=== PATIENT | male | born 1950 | race Two or more races ===

== ENCOUNTER 2018-09-03 08:39 | Emergency (ER) | payer BC, OTHER ==
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
[2018-09-03 09:00] VITALS: BMI 18.8
[2018-09-03] MEDS ORDERED: SODIUM CHLORIDE 0.9% 500 ML INFUS.BAG IV ONE (09:22)
[2018-09-03] MEDS ORDERED: ACETAMINOPHEN 1000 MG/100 ML VIAL (NON FORMULARY) IVPB ONE (09:22)
[2018-09-03] MEDS ORDERED: ACETAMINOPHEN INJECTION 100 ML IVPB ONE (10:06)
[2018-09-03 10:12] LABS: BASO % 0.5 % (0-2.0); EOS % 0.5 % (0-4.5); HEMOGLOBIN 11.4 GM/dL (11.7-16.9); MCHC 33.6 g/dl (32.0-35.9); MEAN CELL VOLUME 95.1 fl (80-96); MEAN PLT VOLUME 8.7 fl (7.5-11.1); MONO % 7.8 % (3.8-10.2); NEUT % 77.2 % (42.8-82.8); PLATELET COUNT 207 K/MM3 (134-434); RBC 3.58 M/mm3 (4.00-5.60); RDW 14.1 % (11.9-15.9); WHITE BLOOD COUNT 6.5 K/mm3 (4.0-10.0)
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
[2018-09-03 10:50] LABS: URINE APPEARANCE CLEAR; URINE BILIRUBIN NEGATIVE (<2.0 mg/dL); URINE COLOR LTYELLOW; URINE GLUCOSE (UA) 3+ (NEGATIVE); URINE KETONE NEGATIVE (NEGATIVE); URINE LEUK ESTERASE NEGATIVE (NEGATIVE); URINE NITRITE NEGATIVE (NEGATIVE); URINE PROTEIN NEGATIVE (NEGATIVE); URINE UROBILINOGEN 4.0 E.U/dl mg/dL (0.2-1.0)
[2018-09-03 10:56] LABS: ALBUMIN 2.8 g/dl (3.4-5.0); ALK PHOS 96 U/L (45-117); ANION GAP 4 MMOL/L (8-16); BILIRUBIN,TOTAL 0.4 mg/dL (0.2-1); BLOOD UREA NITROGEN 10 mg/dL (7-18); CALCIUM 8.6 mg/dL (8.5-10.1); CHLORIDE 103 mmol/L (98-107); CO2 27 mmol/L (21-32); CREATININE 0.5 mg/dL (0.55-1.3); GLUCOSE,RANDOM 243 mg/dL (74-106); POTASSIUM 4.7 mmol/L (3.5-5.1); SGOT/AST 41 U/L (15-37); SGPT/ALT 31 U/L (13-61); SODIUM 134 mmol/L (136-145); TOT PROT 7.4 g/dl (6.4-8.2)
[2018-09-03 11:27] LABS: COCAINE, UR NEGATIVE ng/ml (CUTOFF=300); METHADONE, UR NEGATIVE ng/ml (CUTOFF=300); OPIATES, URI NEGATIVE ng/ml (CUTOFF=300); PHENCYCLIDINE,URINE NEGATIVE ng/ml (CUTOFF=25); URINE AMPHETAMINES NEGATIVE ng/ml (CUTOFF=500); URINE BARBITURATES NEGATIVE ng/ml (CUTOFF=200); URINE BENZODIAZEPINES NEGATIVE ng/ml (CUTOFF=200)
[2018-09-03 15:35] VITALS: BP 115/71; PULSE 89; TEMP 97.9
--- NOTE | 2018-09-03 16:24 | EKG ---
Test Reason : Blood Pressure : / mmHG Vent. Rate : 073 BPM Atrial Rate : 073 BPM P-R Int : 118 ms QRS Dur : 100 ms QT Int : 360 ms P-R-T Axes : 062 -55 038 degrees QTc Int : 396 ms NORMAL SINUS RHYTHM LEFT ANTERIOR FASCICULAR BLOCK ABNORMAL ECG WHEN COMPARED WITH ECG OF 18-OCT-2014 17:18, NO SIGNIFICANT CHANGE WAS FOUND Confirmed by Glynn Hidalgo ([id number]) on 09/03/2018 4:24:25 PM Referred By: Confirmed By:Glynn Hidalgo
== END 2018-09-03 15:35 | disposition home or self-care (01) ==
LOC: JER 08:39
PROC: 3E033NZ Introduction of Analgesics, Hypnotics, Sedatives into Peripheral Vein, Percutaneous Approach (ICD-10-PCS; principal; 2018-09-03)
DX: M79.18 Myalgia, other site (principal); I10 Essential (primary) hypertension; E11.9 Type 2 diabetes mellitus without complications; Z79.84 Long term (current) use of oral hypoglycemic drugs; Z86.73 Personal history of transient ischemic attack (TIA), and cerebral infarction without residual deficits; Z87.01 Personal history of pneumonia (recurrent); Y04.8XXA Assault by other bodily force, initial encounter; Y93.89 Activity, other specified; Y92.238 Other place in hospital as the place of occurrence of the external cause; Y99.8 Other external cause status; Y07.9 Unspecified perpetrator of maltreatment and neglect; F10.10 Alcohol abuse, uncomplicated
CPT/HCPCS: 36415; 70450-TC; 71046-TC-FY; 71111-TC-FY; 71250-TC; 73030-TC-RT-FY; 73060-TC-RT-FY; 73070-TC-RT-FY; 73090-TC-RT-FY; 73564-TC-RT-FY; 80053; 80307; 81003; 81015; 85025; 93005; 93010; 96374; 99284-25; J0131

== ENCOUNTER 2019-07-09 17:48 | Inpatient (IN) | payer OTHER ==
--- NOTE | 2019-07-09 18:16 | PDOC ---
Rapid Medical Evaluation Chief Complaint: Cold Symptoms Time Seen by Provider: 07/09/19 17:56 Medical Evaluation: Allergies Allergy/AdvReac Type Severity Reaction Status Date / Time No Known Allergies Allergy Verified 09/03/18 08:57 Vital Signs Temp Pulse Resp BP Pulse Ox 98.5 F 96 H 18 103/58 L 98 07/09/19 18:04 07/09/19 18:04 07/09/19 18:04 07/09/19 18:04 07/09/19 18:04 07/09/19 18:12 I have performed a brief in-person evaluation of this patient. The patient presents with a chief complaint of:h/o COPD, DM, CVA w/ no residuals , s/p admission for CP 06/26/19 and tx empirically for PNA for RUL infiltrate. Seen by pulm who r/o TB w/ sputum culture (unclear from chart if all 3 AFB smears were negative), no discharge summary on records. Pt here after receiving letter for [facility] and states he spoke to staff who told him to come to ER but pt does not know the reason. No acute med complaints at this time Pertinent physical exam findings:stable I have ordered the following:nothing The patient will proceed to the ED for further evaluation. Discharge Disposition - Diagnosis Evaluation by medical service required - Discharge Dispostion Last Admission D/C Date: 06/27/19 - Referrals - Patient Instructions - Post Discharge Activity
--- NOTE | 2019-07-09 19:48 | PDOC ---
History of Present Illness - General Chief Complaint: Cold Symptoms Stated Complaint: SENT BY PCP Time Seen by Provider: 07/09/19 17:56 History Source: Patient, Old Records Exam Limitations: No Limitations - History of Present Illness Initial Comments: 07/09/19 19:44 68y M with PMH of COPD, DM, CVA w/ no residuals presenting to ED because he got a note from [facility]. He tried calling the number but did not get an answer so he called his PMD who said to go to the ER. He states that he may have TB. He was in the hospital 06/26/2019 but eloped before any testing for TB could be done. Patient is not having any problems at this time. He endorses weight loss over the period of a few years. Endorses chronic cough productive of white phlegm which has not increased, denies chest pain, new sob, n/v/d, fevers, chills, night sweats, hemoptysis, back pain, abdominal pain, headache. Denies history of HIV PMD: Aditi PMH: see hpi Meds: see med rec Allergies: nkda Social: current smoker Past History - Past Medical History Allergies/Adverse Reactions: Allergies Allergy/AdvReac Type Severity Reaction Status Date / Time No Known Allergies Allergy Verified 09/03/18 08:57 Home Medications: Ambulatory Orders NK [No Known Home Medication] 09/03/18 COPD: No HTN: No (hypotension) - Psycho Social/Smoking Cessation Hx Smoking History: Never smoked Number of Cigarettes Smoked Daily: 20 Information on smoking cessation initiated: No Hx Alcohol Use: No Drug/Substance Use Hx: No Review of Systems - Review of Systems Constitutional: No: Chills, Fever, Night Sweats HEENTM: No: Symptoms Reported Respiratory: Yes: Productive cough. No: Hemoptysis Cardiac (ROS): No: Symptoms Reported ABD/GI: No: Symptoms Reported : No: Symptoms Reported Musculoskeletal: No: Symptoms Reported Integumentary: No: Symptoms Reported Neurological: No: Symptoms reported *Physical Exam - Vital Signs Last Vital Signs Temp Pulse Resp BP Pulse Ox 98.5 F 96 H 18 103/58 L 98 07/09/19 18:04 07/09/19 18:04 07/09/19 18:04 07/09/19 18:04 07/09/19 18:04 - Physical Exam General Appearance: Yes: Appropriately Dressed, Thin. No: Apparent Distress HEENT: positive: EOMI, SAM, Normal ENT Inspection. negative: Tonsillar Exudate , Lesions, Thrush Neck: positive: Trachea midline, Supple. negative: Lymphadenopathy (R), Lymphadenopathy (L) Respiratory/Chest: positive: Lungs Clear. negative: Respiratory Distress, Accessory Muscle Use, Crackles, Rales, Rhonchi, Stridor, Plerual Rub Cardiovascular: positive: Regular Rhythm, Regular Rate, S1, S2. negative: Edema , JVD, Murmur Gastrointestinal/Abdominal: positive: Normal Bowel Sounds, Soft. negative: Tender Musculoskeletal: negative: CVA Tenderness Extremity: positive: Normal Capillary Refill. negative: Swelling, Calf Tenderness, Erythema Integumentary: positive: Normal Color, Dry, Warm. negative: Petechiae, Rash Neurologic: positive: civil engineering manager II-XII NML intact, Fully Oriented, Alert, Normal Mood/ Affect, Normal Response, Motor Strength 11/24 ED Treatment Course - LABORATORY CBC & Chemistry Diagram: 07/09/19 21:00 07/09/19 22:21 Medical Decision Making - Medical Decision Making 07/10/19 05:16 68y M presenting to ED for possible TB. vitals wnl patient was in the hospital a few days ago however left prior to full workup. TB cannot be excluded. will admit for TB rule out. basic labs sent, cxr, ekg. cxr has not changed from prior showing RUL consolidation. ekg: nsr at 87bpm. no jones or depressions. slighly widened qrs at 102. lAFB labs wnl. admit med/surg Discharge - Discharge Information Problems reviewed: Yes Clinical Impression/Diagnosis: Evaluation by medical service required, Right upper lobe consolidation Condition: Good - Admission Yes - Follow up/Referral - Patient Discharge Instructions - Post Discharge Activity
--- NOTE | 2019-07-09 19:54 | PDOC ---
Attending Attestation - Resident Resident Name: AdelaShayy - ED Attending Attestation I have performed the following: I have examined & evaluated the patient, The case was reviewed & discussed with the resident, I agree w/resident's findings & plan - HPI HPI: 07/09/19 19:52 see resident hpi - Physicial Exam PE: 07/09/19 19:53 agree with resident exam - Medical Decision Making 68-year-old male noncompliant with last visit to rule out TB sent back by the Board [facility] for further evaluation Plan for readmission with AFB x3 as previously recommended by pulmonary consultation Patient has no complaints at this time
[2019-07-09 21:31] LABS: BASO % 0.8 % (0-2.0); EOS % 3.1 % (0-4.5); HEMATOCRIT 37.4 % (35.4-49); HEMOGLOBIN 12.6 GM/dL (11.7-16.9); MCH 31.5 pg (25.7-33.7); MCHC 33.7 g/dl (32.0-35.9); MEAN CELL VOLUME 93.5 fl (80-96); MEAN PLT VOLUME 8.3 fl (7.5-11.1); MONO % 10.1 % (3.8-10.2); PLATELET COUNT 257 K/MM3 (134-434); RBC 3.99 M/mm3 (4.00-5.60); RDW 13.7 % (11.9-15.9); WHITE BLOOD COUNT 5.6 K/mm3 (4.0-10.0)
[2019-07-09] MEDS ORDERED: ACETAMINOPHEN 500 MG TABLET (FP) PO ONE (22:26)
[2019-07-09 23:03] LABS: BILIRUBIN,TOTAL 0.3 mg/dL (0.2-1); BLOOD UREA NITROGEN 20.7 mg/dL (7-18); CALCIUM 8.7 mg/dL (8.5-10.1); CREATININE 0.9 mg/dL (0.55-1.3); POTASSIUM 4.1 mmol/L (3.5-5.1); TOT PROT 7.4 g/dl (6.4-8.2)
[2019-07-09] MEDS ORDERED: ACETAMINOPHEN 325 MG TABLET (FP) ONE (23:42)
--- NOTE | 2019-07-10 01:31 | HP ---
CHIEF COMPLAINT: sent by PCP PCP: Aditi HISTORY OF PRESENT ILLNESS: This is a 68yM with PMH COPD, DM, CVA who presented to the ED at the urging of his PCP. He received a notice from [facility] and states he may have TB. He was recently in the hospital on 06/26 but eloped before workup could be completed. He had a CT chest which revealed RUL and RML consolidations. He denies any acute complaints but did report feeling feverish with chills. Denies night sweats. Reported weight loss over a few years to ED providers. He states that he has a chronic cough productive of white phlegm. Denies chest pain, SOB, hemoptysis. Recent Travel: pt denies PAST MEDICAL HISTORY: COPD, DM, CVA PAST SURGICAL HISTORY: appendectomy rods in right leg Social History: Smokin/2 PPD; pt states he doesn't "inhale" Alcohol: frequent, states last drink was 3 days ago, denies h/o ETOH withdrawal or tremors Drugs: pt denies Allergies No Known Allergies Allergy (Verified 09/03/18 08:57) HOME MEDICATIONS: pt states he does not take any medications; he stopped them REVIEW OF SYSTEMS CONSTITUTIONAL: Present: fever, chills Absent: diaphoresis, generalized weakness, malaise, loss of appetite HEENT: Absent: rhinorrhea, nasal congestion, throat pain, throat swelling, difficulty swallowing, mouth swelling, ear pain, eye pain, visual changes CARDIOVASCULAR: Absent: chest pain, syncope, palpitations, irregular heart rate, lightheadedness , peripheral edema RESPIRATORY: Present: cough Absent: shortness of breath, dyspnea with exertion, orthopnea, wheezing, stridor , hemoptysis GASTROINTESTINAL: Absent: abdominal pain, abdominal distension, nausea, vomiting, diarrhea, constipation, melena, hematochezia GENITOURINARY: Absent: dysuria, frequency, urgency, hesitancy, hematuria, flank pain, genital pain MUSCULOSKELETAL: Absent: myalgia, arthralgia, joint swelling, back pain, neck pain SKIN: Absent: rash, itching, pallor HEMATOLOGIC/IMMUNOLOGIC: Absent: easy bleeding, easy bruising, lymphadenopathy, frequent infections ENDOCRINE: Absent: unexplained weight gain, unexplained weight loss, heat intolerance, cold intolerance NEUROLOGIC: Absent: headache, focal weakness or paresthesias, dizziness, unsteady gait, seizure, mental status changes, bladder or bowel incontinence PSYCHIATRIC: Absent: anxiety, depression, suicidal or homicidal ideation, hallucinations. PHYSICAL EXAMINATION Vital Signs - 24 hr 3 07/09/19 18:04 Temperature 98.5 F Pulse Rate 96 H Respiratory 18 Rate Blood Pressure 103/58 L O2 Sat by Pulse 98 Oximetry (%) GENERAL: Awake, alert, and fully oriented, in no acute distress. HEAD: Normal with no signs of trauma. EYES: Pupils equal, round and reactive to light, extraocular movements intact, sclera anicteric, conjunctiva clear. No lid lag. EARS, NOSE, THROAT: Ears normal, nares patent, oropharynx clear without exudates. Moist mucous membranes. NECK: Normal range of motion, supple without lymphadenopathy, JVD, or masses. LUNGS: Breath sounds equal, clear to auscultation bilaterally. No wheezes, and no crackles. No accessory muscle use. HEART: Regular rate and rhythm, normal S1 and S2 without murmur, rub or gallop. ABDOMEN: Soft, nontender, not distended, normoactive bowel sounds, no guarding, no rebound, no masses. No hepatomegaly or splenomegaly. MUSCULOSKELETAL: Normal range of motion at all joints. No bony deformities or tenderness. No CVA tenderness. UPPER EXTREMITIES: 2+ pulses, warm, well-perfused. No cyanosis. No clubbing. No peripheral edema. LOWER EXTREMITIES: 2+ pulses, warm, well-perfused. No calf tenderness. No peripheral edema. NEUROLOGICAL: Cranial nerves II-XII intact. Normal speech. Normal gait. PSYCHIATRIC: Cooperative. Good eye contact. Appropriate mood and affect. SKIN: Warm, dry, normal turgor, no rashes or lesions noted, normal capillary refill. Laboratory Results - last 24 hr 3 07/09/19 07/09/19 07/09/19 21:00 21:00 21:00 WBC 5.6 RBC 3.99 L Hgb 12.6 Hct 37.4 MCV 93.5 MCH 31.5 MCHC 33.7 RDW 13.7 Plt Count 257 MPV 8.3 Absolute Neuts (auto) 3.7 Neutrophils % 66.0 Lymphocytes % 20.0 D Monocytes % 10.1 Eosinophils % 3.1 Basophils % 0.8 Nucleated RBC % 0 Sodium Cancelled Potassium Cancelled Chloride Cancelled Carbon Dioxide Cancelled Anion Gap Cancelled BUN Cancelled Creatinine Cancelled Est GFR (CKD-EPI)AfAm Cancelled Est GFR (CKD-EPI)NonAf Cancelled Random Glucose Cancelled Calcium Cancelled Total Bilirubin Cancelled AST Cancelled ALT Cancelled Alkaline Phosphatase Cancelled Troponin I < 0.02 Total Protein Cancelled Albumin Cancelled 3 07/09/19 22:21 WBC RBC Hgb Hct MCV MCH MCHC RDW Plt Count MPV Absolute Neuts (auto) Neutrophils % Lymphocytes % Monocytes % Eosinophils % Basophils % Nucleated RBC % Sodium 139 Potassium 4.1 Chloride 106 Carbon Dioxide 28 Anion Gap 5 L BUN 20.7 H Creatinine 0.9 Est GFR (CKD-EPI)AfAm 100.65 Est GFR (CKD-EPI)NonAf 86.84 Random Glucose 243 H Calcium 8.7 Total Bilirubin 0.3 AST 15 ALT 16 Alkaline Phosphatase 86 Troponin I Total Protein 7.4 Albumin 3.0 L ASSESSMENT/PLAN: 68yM with PMH COPD, DM, CVA presented to the ED for TB workup. RUL/RML consolidation r/o TB - sputum for AFB sent, sent 2 more - quantiferon gold ordered - respiratory isolation - f/u with [facility] in am COPD - chronic cough but otherwise asymptomatic - albuterol nebs prn DM - BGM AC/HS with novolog sliding scale - initiate levemir if sugars persistently elevated DVT PPX - heparin SC FEN - tolerating po fluids - BMP in am - regular diet as tolerated Dispo: pt currently requires inpatient management of his emergent condition. Family Medical History Family Hx Diabetes: Mother Family Hx Gastrointestinal Disorder: Father (Liver, ETOH) Visit type - Emergency Visit Emergency Visit: Yes ED Registration Date: 07/09/19 Care time: The patient presented to the Emergency Department on the above date and was hospitalized for further evaluation of their emergent condition. - New Patient This patient is new to me today: Yes Date on this admission: 07/10/19 - Critical Care Critical Care patient: No
[2019-07-10 08:10] LABS: BASO % 0.8 % (0-2.0); EOS % 4.1 % (0-4.5); HEMATOCRIT 39.4 % (35.4-49); LYMPH % 23.9 % (8-40); MCH 31.6 pg (25.7-33.7); MEAN CELL VOLUME 95.9 fl (80-96); MEAN PLT VOLUME 8.4 fl (7.5-11.1); MONO % 11.4 % (3.8-10.2); NEUT % 59.8 % (42.8-82.8); PLATELET COUNT 248 K/MM3 (134-434); RDW 13.9 % (11.9-15.9); WHITE BLOOD COUNT 6.5 K/mm3 (4.0-10.0)
[2019-07-10 08:24] LABS: BLOOD UREA NITROGEN 22.2 mg/dL (7-18); CALCIUM 9.1 mg/dL (8.5-10.1); CREATININE 0.8 mg/dL (0.55-1.3); PHOSPHOROUS 4.1 mg/dL (2.5-4.9); POTASSIUM 4.5 mmol/L (3.5-5.1)
[2019-07-10] MEDS ORDERED: ACETAMINOPHEN 325 MG TABLET (FP) ONE (10:48)
[2019-07-10] MEDS ORDERED: ACETAMINOPHEN 500 MG TABLET (FP) PO ONE (10:49)
[2019-07-10] MEDS: HEPARIN NA (PORCINE) 5,000 UNITS/ML 1ML VIAL SQ SCH ×2 (11:02→23:09)
[2019-07-10] MEDS ORDERED: ALBUTEROL SO4 0.083% IH SOL 2.5 MG/3 ML VIAL.NEB. NEB PRN (11:54)
--- NOTE | 2019-07-10 11:55 | PN ---
Progress Note, Physician Chief Complaint: R consolidation, R/O TB COPD History of Present Illness: Previous notes and events reviewed awake and alert NAD complain of productive cough with white phlegm no leukocytosis afebrile pending AFB results - Current Medication List Current Medications: Active Medications Heparin Sodium (Porcine) (Heparin -) 5,000 unit SQ BID NATALIA Last Admin: 07/10/19 11:02 Dose: Not Given Insulin Aspart (Novolog Vial Sliding Scale -) 1 vial SQ TIDAC NATALIA; Protocol Insulin Aspart (Novolog Vial Sliding Scale -) 1 vial SQ HS NATALIA; Protocol - Objective Vital Signs: Vital Signs Temperature 98.0 F 07/10/19 11:29 Pulse Rate 73 07/10/19 11:29 Respiratory Rate 17 07/10/19 11:29 Blood Pressure 110/68 07/10/19 11:29 O2 Sat by Pulse Oximetry (%) 97 07/10/19 11:29 Constitutional: Yes: No Distress, Calm, Poor Hygeine Eyes: Yes: Conjunctiva Clear HENT: Yes: Atraumatic Cardiovascular: Yes: Regular Rate and Rhythm Respiratory: Yes: Regular, Cough, Diminished Gastrointestinal: Yes: Normal Bowel Sounds, Soft Musculoskeletal: Yes: Muscle Weakness Extremities: Yes: WNL Edema: No Neurological: Yes: Alert, Oriented Psychiatric: Yes: Alert, Oriented Labs: CBC, BMP 07/10/19 06:40 07/10/19 06:40 Microbiology 07/10/19 00:50 Sputum - Expectorated AFB Smear Concentration - Preliminary 07/10/19 00:50 Sputum - Expectorated Mycobacterial Culture - Preliminary - ....Imaging Chest X-ray: Report Reviewed Problem List - Problems (1) Right upper lobe consolidation Assessment/Plan: -Pulm consult -no leukocytosis -afebrile -O2 via NC -keep SpO2 >90% -CXR shows extensive COPD -Bronchodilators Code(s): J18.1 - LOBAR PNEUMONIA, UNSPECIFIED ORGANISM (2) COPD suggested by initial evaluation Assessment/Plan: -Pulm consult -no leukocytosis -afebrile -O2 via NC -keep SpO2 >90% -CXR shows extensive COPD -Bronchodilators Code(s): J44.9 - CHRONIC OBSTRUCTIVE PULMONARY DISEASE, UNSPECIFIED (3) Moderate protein-calorie malnutrition Assessment/Plan: -dietary consult Code(s): E44.0 - MODERATE PROTEIN-CALORIE MALNUTRITION (4) Poorly controlled diabetes mellitus Assessment/Plan: -ISS -HgA1c -BGM ACHS Code(s): E11.65 - TYPE 2 DIABETES MELLITUS WITH HYPERGLYCEMIA (5) Tuberculosis Assessment/Plan: -Pulm consult -no leukocytosis -afebrile -O2 via NC -keep SpO2 >90% -CXR shows extensive COPD -Bronchodilators -AFB pending result -quantiferon pending Code(s): A15.9 - RESPIRATORY TUBERCULOSIS UNSPECIFIED Assessment/Plan see problem list dvt ppx
[2019-07-10] MEDS: INSULIN SLIDING SCALE (NOVOLOG) 1 VIAL SQ SCH ×4 (11:56→23:10)
--- NOTE | 2019-07-10 11:56 | EKG ---
Test Reason : Blood Pressure : / mmHG Vent. Rate : 088 BPM Atrial Rate : 088 BPM P-R Int : 116 ms QRS Dur : 094 ms QT Int : 352 ms P-R-T Axes : 063 -65 059 degrees QTc Int : 425 ms NORMAL SINUS RHYTHM LEFT ANTERIOR FASCICULAR BLOCK ABNORMAL ECG WHEN COMPARED WITH ECG OF 03-SEP-2018 10:23, NO SIGNIFICANT CHANGE WAS FOUND Confirmed by KATIA DURAN, DONATO ([id number]) on 07/10/2019 11:55:43 AM Referred By: Confirmed By:DONATO MONTALVO MD
[2019-07-10] MEDS: ACETAMINOPHEN 325 MG TABLET (FP) PO PRN (23:10)
[2019-07-11 06:21] LABS: HEMATOCRIT 36.6 % (35.4-49); HEMOGLOBIN 12.2 GM/dL (11.7-16.9); MCH 31.3 pg (25.7-33.7); MCHC 33.2 g/dl (32.0-35.9); MEAN CELL VOLUME 94.2 fl (80-96); MEAN PLT VOLUME 8.4 fl (7.5-11.1); PLATELET COUNT 234 K/MM3 (134-434); RBC 3.89 M/mm3 (4.00-5.60); RDW 13.1 % (11.9-15.9); WHITE BLOOD COUNT 4.7 K/mm3 (4.0-10.0)
[2019-07-11] MEDS: INSULIN SLIDING SCALE (NOVOLOG) 1 VIAL SQ SCH ×4 (06:49→21:24)
[2019-07-11 07:00] LABS: BLOOD UREA NITROGEN 19.6 mg/dL (7-18); CREATININE 0.6 mg/dL (0.55-1.3); POTASSIUM 4.2 mmol/L (3.5-5.1)
[2019-07-11 07:01] LABS: BILIRUBIN,TOTAL 0.5 mg/dL (0.2-1); CALCIUM 8.6 mg/dL (8.5-10.1); TOT PROT 7.3 g/dl (6.4-8.2)
[2019-07-11] MEDS: HEPARIN NA (PORCINE) 5,000 UNITS/ML 1ML VIAL SQ SCH ×2 (09:08→21:25)
--- NOTE | 2019-07-11 11:37 | PN ---
Progress Note, Physician Chief Complaint: EVENTS AND NOTES REVIEWED HERE FOR TB WORKUP NO FEVER OR NIGHT SWEATS - Current Medication List Current Medications: Active Medications Acetaminophen (Tylenol -) 650 mg PO Q4H PRN PRN Reason: PAIN LEVEL 1-5 Last Admin: 07/10/19 23:10 Dose: 650 mg Albuterol Sulfate (Ventolin 0.083% Nebulizer Soln -) 1 amp NEB Q6H PRN PRN Reason: SHORT OF BREATH/WHEEZING Heparin Sodium (Porcine) (Heparin -) 5,000 unit SQ BID NATALIA Last Admin: 07/11/19 09:08 Dose: 5,000 unit Insulin Aspart (Novolog Vial Sliding Scale -) 1 vial SQ TIDAC NATALIA; Protocol Last Admin: 07/11/19 06:49 Dose: 3 units Insulin Aspart (Novolog Vial Sliding Scale -) 1 vial SQ HS NATALIA; Protocol Last Admin: 07/10/19 23:10 Dose: Not Given - Objective Vital Signs: Vital Signs Temperature 97.8 F 07/11/19 06:00 Pulse Rate 84 07/11/19 06:00 Respiratory Rate 18 07/11/19 06:00 Blood Pressure 106/70 07/11/19 06:00 O2 Sat by Pulse Oximetry (%) 96 07/11/19 09:00 Constitutional: Yes: Mild Distress Cardiovascular: Yes: Regular Rate and Rhythm Respiratory: Yes: CTA Bilaterally Genitourinary: Yes: WNL Musculoskeletal: Yes: WNL Peripheral Pulses WNL: Yes Wound/Incision: Yes: Other Neurological: Yes: Other Labs: CBC, BMP 07/11/19 05:25 07/11/19 05:25 Problem List - Problems (1) Right upper lobe consolidation Code(s): J18.1 - LOBAR PNEUMONIA, UNSPECIFIED ORGANISM (2) Smoker Code(s): F17.200 - NICOTINE DEPENDENCE, UNSPECIFIED, UNCOMPLICATED (3) COPD suggested by initial evaluation Code(s): J44.9 - CHRONIC OBSTRUCTIVE PULMONARY DISEASE, UNSPECIFIED Assessment/Plan TB WORKUP ON ISOLATION PULM AND ID WORKUP NEBS DVT PROPHYLAXIS SSI/BGM CHECKS
--- NOTE | 2019-07-11 12:19 | CON.PULM ---
Consult Consult Specialty:: PULM/CCM Referred by:: HAILEY Reason for Consultation:: R/O TB - History of Present Illness Chief Complaint: Possible TB History of Present Illness: 68 M, who denies past medical history. Recently hospitalized here at [facility] (06/26 ) but eloped before his work up could be completed. He was being worked up for a RUL consolidation noted on CXR/CT. He apparently received a notice from [facility] and states he may have TB. At that time, I do not see any AFB samples. He denies any fevers, chills or sweats. He does report a 60lb weight loss over the past 10 years. He has a productive cough with of white/clear sputum. He denies previous history of TB. He does recall previously being tested for TB and HIV: apparently both were negative (unable to recall how long ago). No hemoptysis or night sweats. No recent travel history or sick contacts. He is originally from [place]. - History Source History Provided By: Patient, Medical Record Limitations to Obtaining History: Poor Historian - Past Medical History Pulmonary: Yes: Bronchitis, Pneumonia. No: Asthma, COPD, O2 Dependent, Previously Intubated, Pulmonary Embolus, Pulmonary Fibrosis, Sleep Apnea - Alcohol/Substance Use Hx Alcohol Use: Yes Number of Drinks Daily: 3 Date of Last Use: 06/25/19 - Smoking History Smoking history: Current every day smoker Have you smoked in the past 12 months: Yes Aproximately how many cigarettes per day: 20 - Social History ADL: Independent Occupation: unemployed History of Recent Travel: No Home Medications - Allergies Allergies/Adverse Reactions: Allergies Allergy/AdvReac Type Severity Reaction Status Date / Time No Known Allergies Allergy Verified 09/03/18 08:57 - Home Medications Home Medications: Ambulatory Orders NK [No Known Home Medication] 09/03/18 Review of Systems - Review of Systems Constitutional: reports: Malaise, Unintentional Wgt. Loss. denies: Chills, Fever, Night Sweats Eyes: reports: No Symptoms HENT: reports: No Symptoms Neck: reports: No Symptoms Cardiovascular: reports: Shortness of Breath. denies: Chest Pain, Edema, Palpitations Respiratory: reports: Cough, SOB, SOB on Exertion. denies: Hemoptysis, Orthopnea, PND, Snoring, Wheezing Gastrointestinal: reports: No Symptoms Genitourinary: reports: No Symptoms Breasts: reports: No Symptoms Reported Musculoskeletal: reports: Back Pain, Joint Pain Integumentary: reports: No Symptoms Neurological: reports: No Symptoms Endocrine: reports: No Symptoms Hematology/Lymphatic: reports: No Symptoms Psychiatric: reports: No Symptoms Physical Exam Vital Sings: Vital Signs Temperature 97.8 F 07/11/19 06:00 Pulse Rate 84 07/11/19 06:00 Respiratory Rate 18 07/11/19 06:00 Blood Pressure 106/70 07/11/19 06:00 O2 Sat by Pulse Oximetry (%) 96 07/11/19 09:00 Constitutional: Yes: No Distress, Thin Eyes: Yes: Conjunctiva Clear, EOM Intact HENT: Yes: Atraumatic, Normocephalic Neck: Yes: Supple, Trachea Midline Cardiovascular: Yes: Regular Rate and Rhythm Respiratory: Yes: Cough, Diminished, Rhonchi. No: Accessory Muscle Use, Rales, SOB, SOB on Exertion, Stridor, Tachypnea, Wheezes ...Inspection: Yes: WNL ...Clubbing: No Gastrointestinal: Yes: Normal Bowel Sounds, Soft Renal/: Yes: WNL Musculoskeletal: Yes: WNL Extremities: Yes: WNL Edema: No Peripheral Pulses WNL: Yes Integumentary: Yes: WNL Neurological: Yes: WNL, Alert, Oriented ...Motor Strength: WNL Psychiatric: Yes: WNL, Alert, Oriented Labs: CBC, BMP 07/11/19 05:25 07/11/19 05:25 Imaging - Results Chest X-ray: Report Reviewed, Image Reviewed Cat Scan: Report Reviewed, Image Reviewed Problem List - Problems (1) Smoker Code(s): F17.200 - NICOTINE DEPENDENCE, UNSPECIFIED, UNCOMPLICATED (2) Right upper lobe consolidation Code(s): J18.1 - LOBAR PNEUMONIA, UNSPECIFIED ORGANISM (3) COPD suggested by initial evaluation Code(s): J44.9 - CHRONIC OBSTRUCTIVE PULMONARY DISEASE, UNSPECIFIED (4) Moderate protein-calorie malnutrition Code(s): E44.0 - MODERATE PROTEIN-CALORIE MALNUTRITION (5) Musculoskeletal pain Code(s): M79.18 - MYALGIA, OTHER SITE (6) PNA (pneumonia) Code(s): J18.9 - PNEUMONIA, UNSPECIFIED ORGANISM (7) Tuberculosis Code(s): A15.9 - RESPIRATORY TUBERCULOSIS UNSPECIFIED Assessment/Plan Isolation AFB x 3 O2 as needed Smoking cessation was discussed VTE prophylaxis Will need outpatient PFTs Would monitor off ABX for now ID evaluation pending Will follow Thank you. Dr Jeffers
[2019-07-12] MEDS: ACETAMINOPHEN 325 MG TABLET (FP) PO PRN ×2 (04:30→22:03)
[2019-07-12] MEDS: INSULIN SLIDING SCALE (NOVOLOG) 1 VIAL SQ SCH ×4 (06:09→21:16)
[2019-07-12] MEDS: HEPARIN NA (PORCINE) 5,000 UNITS/ML 1ML VIAL SQ SCH ×2 (09:07→22:03)
--- NOTE | 2019-07-12 13:13 | PN ---
Progress Note (short form) - Note Progress Note: PULMONARY Denies shortness of breath. +cough with clear sputum. Vital Signs Period Temp Pulse Resp BP Sys/Newsome Pulse Ox Last 24 Hr 98.1 F-98.3 F 84-94 18-18 93-120/54-67 96-100 Gen: NAD at rest Heart: RRR Lung: decreased breath sounds at the bases Abd: soft, nontender Ext: no edema CBC, BMP 07/11/19 05:25 07/11/19 05:25 Active Medications Acetaminophen (Tylenol -) 650 mg PO Q4H PRN PRN Reason: PAIN LEVEL 1-5 Last Admin: 07/12/19 04:30 Dose: 650 mg Albuterol Sulfate (Ventolin 0.083% Nebulizer Soln -) 1 amp NEB Q6H PRN PRN Reason: SHORT OF BREATH/WHEEZING Heparin Sodium (Porcine) (Heparin -) 5,000 unit SQ BID NATALIA Last Admin: 07/12/19 09:07 Dose: 5,000 unit Insulin Aspart (Novolog Vial Sliding Scale -) 1 vial SQ TIDAC NATALIA; Protocol Last Admin: 07/12/19 11:14 Dose: Not Given Insulin Aspart (Novolog Vial Sliding Scale -) 1 vial SQ HS NATALIA; Protocol Last Admin: 07/11/19 21:24 Dose: Not Given A/P Pulmonary Consolidation r/o TB COPD DM h/o CVA - sputum AFB x 3 - quantiferon - inhaled bronchodilators as needed - DVT prophylaxis
--- NOTE | 2019-07-12 13:47 | PN ---
Progress Note, Physician Chief Complaint: R consolidation, R/O TB COPD History of Present Illness: NAD Denies any SOB - Current Medication List Current Medications: Active Medications Acetaminophen (Tylenol -) 650 mg PO Q4H PRN PRN Reason: PAIN LEVEL 1-5 Last Admin: 07/12/19 04:30 Dose: 650 mg Albuterol Sulfate (Ventolin 0.083% Nebulizer Soln -) 1 amp NEB Q6H PRN PRN Reason: SHORT OF BREATH/WHEEZING Heparin Sodium (Porcine) (Heparin -) 5,000 unit SQ BID NATALIA Last Admin: 07/12/19 09:07 Dose: 5,000 unit Insulin Aspart (Novolog Vial Sliding Scale -) 1 vial SQ TIDAC NATALIA; Protocol Last Admin: 07/12/19 11:14 Dose: Not Given Insulin Aspart (Novolog Vial Sliding Scale -) 1 vial SQ HS NATALIA; Protocol Last Admin: 07/11/19 21:24 Dose: Not Given - Objective Vital Signs: Vital Signs Temperature 98.1 F 07/12/19 10:03 Pulse Rate 88 07/12/19 10:03 Respiratory Rate 18 07/12/19 10:03 Blood Pressure 120/67 07/12/19 10:03 O2 Sat by Pulse Oximetry (%) 99 07/12/19 09:00 Constitutional: Yes: No Distress, Calm, Cachectic Cardiovascular: Yes: Regular Rate and Rhythm Respiratory: Yes: Regular, Cough (productive with clear sputum) Gastrointestinal: Yes: Normal Bowel Sounds, Soft Genitourinary: Yes: WNL Musculoskeletal: Yes: WNL Extremities: Yes: WNL Edema: No Peripheral Pulses WNL: Yes Neurological: Yes: Alert, Oriented Psychiatric: Yes: Alert, Oriented Labs: CBC, BMP 07/11/19 05:25 07/11/19 05:25 Assessment/Plan (1) Right upper lobe consolidation Assessment/Plan: -Pulm consult -no leukocytosis -afebrile -O2 via NC -keep SpO2 >90% -CXR shows extensive COPD -Bronchodilators -ID consult Code(s): J18.1 - LOBAR PNEUMONIA, UNSPECIFIED ORGANISM (2) COPD suggested by initial evaluation Assessment/Plan: -Pulm consult -no leukocytosis -afebrile -O2 via NC -keep SpO2 >90% -CXR shows extensive COPD -Bronchodilators Code(s): J44.9 - CHRONIC OBSTRUCTIVE PULMONARY DISEASE, UNSPECIFIED (3) Moderate protein-calorie malnutrition Assessment/Plan: -dietary consult Code(s): E44.0 - MODERATE PROTEIN-CALORIE MALNUTRITION (4) Poorly controlled diabetes mellitus Assessment/Plan: -ISS -HgA1c 7.0 -BGM ACHS Code(s): E11.65 - TYPE 2 DIABETES MELLITUS WITH HYPERGLYCEMIA (5) Tuberculosis Assessment/Plan: -Pulm consult -no leukocytosis -afebrile -O2 via NC -keep SpO2 >90% -CXR shows extensive COPD -Bronchodilators -AFB pending result -quantiferon pending Code(s): A15.9 - RESPIRATORY TUBERCULOSIS UNSPECIFIED Assessment/Plan see problem list dvt ppx
--- NOTE | 2019-07-12 15:49 | PN ---
Progress Note (short form) - Note Progress Note: ID CONSULT DICTATED RUL PNEUMONIA R/O AFB DISEASE ISOLATION QUANTIFERON SPUTUM AFB X 3 SPUTUM TB PCR HIV TEST ( PT CONSENTS ) OBSERVE OFF ANTIBIOTICS
[2019-07-13] MEDS: INSULIN SLIDING SCALE (NOVOLOG) 1 VIAL SQ SCH ×5 (06:10→21:13)
--- NOTE | 2019-07-13 09:44 | PN ---
Progress Note, Physician Chief Complaint: R consolidation, R/O TB COPD History of Present Illness: NAD Denies any SOB AFB pending Seen by ID - Current Medication List Current Medications: Active Medications Acetaminophen (Tylenol -) 650 mg PO Q4H PRN PRN Reason: PAIN LEVEL 1-5 Last Admin: 07/12/19 22:03 Dose: 650 mg Albuterol Sulfate (Ventolin 0.083% Nebulizer Soln -) 1 amp NEB Q6H PRN PRN Reason: SHORT OF BREATH/WHEEZING Heparin Sodium (Porcine) (Heparin -) 5,000 unit SQ BID NATALIA Last Admin: 07/12/19 22:03 Dose: 5,000 unit Insulin Aspart (Novolog Vial Sliding Scale -) 1 vial SQ TIDAC NATALIA; Protocol Last Admin: 07/13/19 06:10 Dose: Not Given Insulin Aspart (Novolog Vial Sliding Scale -) 1 vial SQ HS NATALIA; Protocol Last Admin: 07/12/19 21:16 Dose: Not Given - Objective Vital Signs: Vital Signs Temperature 98.8 F 07/13/19 05:51 Pulse Rate 92 H 07/13/19 05:51 Respiratory Rate 18 07/13/19 05:51 Blood Pressure 99/46 L 07/13/19 05:51 O2 Sat by Pulse Oximetry (%) 99 07/12/19 09:00 Constitutional: Yes: No Distress, Calm, Cachectic Cardiovascular: Yes: Regular Rate and Rhythm Respiratory: Yes: Regular Gastrointestinal: Yes: Normal Bowel Sounds, Soft Genitourinary: Yes: WNL Musculoskeletal: Yes: WNL Extremities: Yes: WNL Edema: No Peripheral Pulses WNL: Yes Neurological: Yes: Alert, Oriented Psychiatric: Yes: Alert, Oriented Labs: CBC, BMP 07/11/19 05:25 07/11/19 05:25 Assessment/Plan (1) Right upper lobe consolidation Assessment/Plan: -Pulm consult -no leukocytosis -afebrile -O2 via NC -keep SpO2 >90% -CXR shows extensive COPD -Bronchodilators -ID consult Code(s): J18.1 - LOBAR PNEUMONIA, UNSPECIFIED ORGANISM (2) COPD suggested by initial evaluation Assessment/Plan: -Pulm consult -no leukocytosis -afebrile -O2 via NC -keep SpO2 >90% -CXR shows extensive COPD -Bronchodilators Code(s): J44.9 - CHRONIC OBSTRUCTIVE PULMONARY DISEASE, UNSPECIFIED (3) Moderate protein-calorie malnutrition Assessment/Plan: -dietary consult Code(s): E44.0 - MODERATE PROTEIN-CALORIE MALNUTRITION (4) Poorly controlled diabetes mellitus Assessment/Plan: -ISS -HgA1c 7.0 -BGM ACHS Code(s): E11.65 - TYPE 2 DIABETES MELLITUS WITH HYPERGLYCEMIA (5) Tuberculosis Assessment/Plan: -Pulm consult -no leukocytosis -afebrile -O2 via NC -keep SpO2 >90% -CXR shows extensive COPD -Bronchodilators -AFB pending result -quantiferon pending Code(s): A15.9 - RESPIRATORY TUBERCULOSIS UNSPECIFIED Assessment/Plan see problem list dvt ppx
[2019-07-13] MEDS: HEPARIN NA (PORCINE) 5,000 UNITS/ML 1ML VIAL SQ SCH ×3 (11:03→21:13)
--- NOTE | 2019-07-13 12:03 | PN ---
Progress Note (short form) - Note Progress Note: PULMONARY Denies shortness of breath. +cough with clear sputum. Quantiferon negative. Vital Signs Period Temp Pulse Resp BP Sys/Newsome Pulse Ox Last 24 Hr 98 F-98.8 F 92-101 18-20 88-118/46-63 Gen: NAD at rest Heart: RRR Lung: decreased breath sounds at the bases Abd: soft, nontender Ext: no edema CBC, BMP 07/11/19 05:25 07/11/19 05:25 Active Medications Acetaminophen (Tylenol -) 650 mg PO Q4H PRN PRN Reason: PAIN LEVEL 1-5 Last Admin: 07/12/19 22:03 Dose: 650 mg Albuterol Sulfate (Ventolin 0.083% Nebulizer Soln -) 1 amp NEB Q6H PRN PRN Reason: SHORT OF BREATH/WHEEZING Heparin Sodium (Porcine) (Heparin -) 5,000 unit SQ BID NATALIA Last Admin: 07/13/19 11:06 Dose: Not Given Insulin Aspart (Novolog Vial Sliding Scale -) 1 vial SQ TIDAC NATALIA; Protocol Last Admin: 07/13/19 11:06 Dose: Not Given Insulin Aspart (Novolog Vial Sliding Scale -) 1 vial SQ HS NATALIA; Protocol Last Admin: 07/12/19 21:16 Dose: Not Given A/P Pulmonary Consolidation r/o TB COPD DM h/o CVA - given negative quantiferon, CT findings likely chronic - sputum AFB x 3 - inhaled bronchodilators as needed - DVT prophylaxis
[2019-07-14] MEDS: INSULIN SLIDING SCALE (NOVOLOG) 1 VIAL SQ SCH ×4 (06:02→21:10)
--- NOTE | 2019-07-14 08:38 | PN ---
Progress Note, Physician Chief Complaint: ASLEEP NO EVENTS OVERNIGHT - Current Medication List Current Medications: Active Medications Acetaminophen (Tylenol -) 650 mg PO Q4H PRN PRN Reason: PAIN LEVEL 1-5 Last Admin: 07/12/19 22:03 Dose: 650 mg Albuterol Sulfate (Ventolin 0.083% Nebulizer Soln -) 1 amp NEB Q6H PRN PRN Reason: SHORT OF BREATH/WHEEZING Heparin Sodium (Porcine) (Heparin -) 5,000 unit SQ BID NATALIA Last Admin: 07/13/19 21:13 Dose: 5,000 unit Insulin Aspart (Novolog Vial Sliding Scale -) 1 vial SQ TIDAC NATALIA; Protocol Last Admin: 07/14/19 06:02 Dose: Not Given Insulin Aspart (Novolog Vial Sliding Scale -) 1 vial SQ HS NATALIA; Protocol Last Admin: 07/13/19 21:13 Dose: 2 unit - Objective Vital Signs: Vital Signs Temperature 98.4 F 07/14/19 06:00 Pulse Rate 83 07/14/19 06:00 Respiratory Rate 20 07/14/19 06:00 Blood Pressure 92/57 L 07/14/19 06:00 O2 Sat by Pulse Oximetry (%) 99 07/13/19 20:17 Constitutional: Yes: Mild Distress Cardiovascular: Yes: Regular Rate and Rhythm Respiratory: Yes: CTA Bilaterally Gastrointestinal: Yes: WNL Labs: CBC, BMP 07/11/19 05:25 07/11/19 05:25 Problem List - Problems (1) Right upper lobe consolidation Code(s): J18.1 - LOBAR PNEUMONIA, UNSPECIFIED ORGANISM (2) Smoker Code(s): F17.200 - NICOTINE DEPENDENCE, UNSPECIFIED, UNCOMPLICATED (3) COPD suggested by initial evaluation Code(s): J44.9 - CHRONIC OBSTRUCTIVE PULMONARY DISEASE, UNSPECIFIED Assessment/Plan PULM/ID CONSULT APPRECIATED QUANTEFIRON NEGATIVE AFB PENDING OOB TO CHAIR DVT PROPHLAXIS
[2019-07-14] MEDS: HEPARIN NA (PORCINE) 5,000 UNITS/ML 1ML VIAL SQ SCH ×2 (10:11→21:15)
--- NOTE | 2019-07-14 11:46 | PN ---
Progress Note (short form) - Note Progress Note: Denies shortness of breath. Still with some cough with clear sputum. Quantiferon negative. Intake & Output 07/11/19 07/12/19 07/13/19 07/14/19 23:59 23:59 23:59 23:59 Intake Total 519 768 7953 Output Total 810 Balance 240 -270 1420 Weight 100 lb Last Vital Signs Temp Pulse Resp BP Pulse Ox 97.9 F 90 16 106/58 L 99 07/14/19 10:13 07/14/19 10:13 07/14/19 10:13 07/14/19 10:13 07/14/19 10:00 Active Medications Acetaminophen (Tylenol -) 650 mg PO Q4H PRN PRN Reason: PAIN LEVEL 1-5 Last Admin: 07/12/19 22:03 Dose: 650 mg Albuterol Sulfate (Ventolin 0.083% Nebulizer Soln -) 1 amp NEB Q6H PRN PRN Reason: SHORT OF BREATH/WHEEZING Heparin Sodium (Porcine) (Heparin -) 5,000 unit SQ BID NATALIA Last Admin: 07/14/19 10:11 Dose: 5,000 unit Insulin Aspart (Novolog Vial Sliding Scale -) 1 vial SQ TIDAC NATALIA; Protocol Last Admin: 07/14/19 06:02 Dose: Not Given Insulin Aspart (Novolog Vial Sliding Scale -) 1 vial SQ HS NATALIA; Protocol Last Admin: 07/13/19 21:13 Dose: 2 unit Gen: NAD at rest Heart: RRR Lung: decreased breath sounds at the bases Abd: soft, nontender Ext: no edema Laboratory Results - last 24 hr 07/13/19 07/13/19 07/13/19 17:26 19:58 21:06 POC Glucometer 133 209 211 07/14/19 05:55 POC Glucometer 138 A/P Pulmonary Consolidation r/o TB COPD DM h/o CVA - given negative quantiferon, CT findings likely chronic - sputum AFB x 3 - inhaled bronchodilators as needed - DVT prophylaxis Dr Jeffers Problem List - Problems (1) Smoker Code(s): F17.200 - NICOTINE DEPENDENCE, UNSPECIFIED, UNCOMPLICATED (2) Right upper lobe consolidation Code(s): J18.1 - LOBAR PNEUMONIA, UNSPECIFIED ORGANISM (3) COPD suggested by initial evaluation Code(s): J44.9 - CHRONIC OBSTRUCTIVE PULMONARY DISEASE, UNSPECIFIED (4) Moderate protein-calorie malnutrition Code(s): E44.0 - MODERATE PROTEIN-CALORIE MALNUTRITION (5) Musculoskeletal pain Code(s): M79.18 - MYALGIA, OTHER SITE (6) PNA (pneumonia) Code(s): J18.9 - PNEUMONIA, UNSPECIFIED ORGANISM (7) Tuberculosis Code(s): A15.9 - RESPIRATORY TUBERCULOSIS UNSPECIFIED
[2019-07-15 06:43] LABS: HEMATOCRIT 38.9 % (35.4-49); HEMOGLOBIN 12.8 GM/dL (11.7-16.9); MCH 31.5 pg (25.7-33.7); MCHC 32.9 g/dl (32.0-35.9); MEAN CELL VOLUME 95.7 fl (80-96); MEAN PLT VOLUME 8.6 fl (7.5-11.1); PLATELET COUNT 232 K/MM3 (134-434); RBC 4.07 M/mm3 (4.00-5.60); RDW 13.3 % (11.9-15.9); WHITE BLOOD COUNT 10.1 K/mm3 (4.0-10.0)
[2019-07-15] MEDS: INSULIN SLIDING SCALE (NOVOLOG) 1 VIAL SQ SCH ×4 (06:59→22:14)
[2019-07-15 07:07] LABS: ALBUMIN 3.2 g/dl (3.4-5.0); BILIRUBIN,TOTAL 0.3 mg/dL (0.2-1); BLOOD UREA NITROGEN 18.5 mg/dL (7-18); CREATININE 0.5 mg/dL (0.55-1.3); POTASSIUM 4.3 mmol/L (3.5-5.1); TOT PROT 7.8 g/dl (6.4-8.2)
--- NOTE | 2019-07-15 08:47 | PN ---
Progress Note (short form) - Note Progress Note: IN BED AWAITING AFB SMEARS FOR CX/CYTO/ACID FAST NO FEVERS NO CHILLS CONTINUE MONITORING AND R/O TB PULM/ID F/U APPRECIATED DVT PROPHYLAXIS SMOKING CESSATION Problem List - Problems (1) Right upper lobe consolidation Code(s): J18.1 - LOBAR PNEUMONIA, UNSPECIFIED ORGANISM (2) Smoker Code(s): F17.200 - NICOTINE DEPENDENCE, UNSPECIFIED, UNCOMPLICATED (3) COPD suggested by initial evaluation Code(s): J44.9 - CHRONIC OBSTRUCTIVE PULMONARY DISEASE, UNSPECIFIED
--- NOTE | 2019-07-15 10:06 | PN ---
Progress Note, Physician History of Present Illness: pulmonary alert,comfortable,-resp distress - Current Medication List Current Medications: Active Medications Acetaminophen (Tylenol -) 650 mg PO Q4H PRN PRN Reason: PAIN LEVEL 1-5 Last Admin: 07/12/19 22:03 Dose: 650 mg Albuterol Sulfate (Ventolin 0.083% Nebulizer Soln -) 1 amp NEB Q6H PRN PRN Reason: SHORT OF BREATH/WHEEZING Heparin Sodium (Porcine) (Heparin -) 5,000 unit SQ BID NATALIA Last Admin: 07/14/19 21:15 Dose: 5,000 unit Insulin Aspart (Novolog Vial Sliding Scale -) 1 vial SQ TIDAC NATALIA; Protocol Last Admin: 07/15/19 06:59 Dose: 2 units Insulin Aspart (Novolog Vial Sliding Scale -) 1 vial SQ HS NATALIA; Protocol Last Admin: 07/14/19 21:10 Dose: Not Given - Objective Vital Signs: Vital Signs Temperature 98.1 F 07/15/19 05:00 Pulse Rate 90 07/15/19 05:00 Respiratory Rate 16 07/15/19 05:00 Blood Pressure 103/62 07/15/19 05:00 O2 Sat by Pulse Oximetry (%) 95 07/14/19 21:00 Constitutional: Yes: Calm, Cachectic Eyes: Yes: WNL HENT: Yes: WNL Neck: Yes: WNL Cardiovascular: Yes: Regular Rate and Rhythm, S1, S2 Respiratory: Yes: Diminished Gastrointestinal: Yes: Normal Bowel Sounds, Soft Extremities: Yes: WNL Edema: No Labs: CBC, BMP 07/15/19 05:10 07/15/19 05:10 Problem List - Problems (1) Right upper lobe consolidation Code(s): J18.1 - LOBAR PNEUMONIA, UNSPECIFIED ORGANISM (2) Smoker Code(s): F17.200 - NICOTINE DEPENDENCE, UNSPECIFIED, UNCOMPLICATED (3) Abdominal pain Code(s): R10.9 - UNSPECIFIED ABDOMINAL PAIN (4) Failure to thrive Code(s): [id number] - Qualifiers: Failure to thrive age range: in adult Qualified Code(s): R62.7 - Adult failure to thrive (5) Moderate malnutrition Code(s): E44.0 - MODERATE PROTEIN-CALORIE MALNUTRITION (6) Moderate protein-calorie malnutrition Code(s): E44.0 - MODERATE PROTEIN-CALORIE MALNUTRITION (7) PNA (pneumonia) Code(s): J18.9 - PNEUMONIA, UNSPECIFIED ORGANISM Assessment/Plan A/P Pulmonary Consolidation r/o TB COPD DM h/o CVA - given negative quantiferon, CT findings likely chronic - sputum AFB x 3 - inhaled bronchodilators as needed - DVT prophylaxis DR RODRIGUEZ
[2019-07-15] MEDS: HEPARIN NA (PORCINE) 5,000 UNITS/ML 1ML VIAL SQ SCH ×2 (10:51→22:14)
[2019-07-15 14:07] VITALS: BMI 21.2
[2019-07-15] MEDS: ACETAMINOPHEN 325 MG TABLET (FP) PO PRN (17:30)
[2019-07-16] MEDS: ACETAMINOPHEN 325 MG TABLET (FP) PO PRN ×2 (03:43→19:47)
[2019-07-16] MEDS: INSULIN SLIDING SCALE (NOVOLOG) 1 VIAL SQ SCH ×4 (06:52→21:31)
--- NOTE | 2019-07-16 09:33 | PN ---
Progress Note, Physician Chief Complaint: R consolidation, R/O TB COPD History of Present Illness: NAD Denies any SOB AFB pending Quantiferon negative Seen by ID refused HIV testing - Current Medication List Current Medications: Active Medications Acetaminophen (Tylenol -) 650 mg PO Q4H PRN PRN Reason: PAIN LEVEL 1-5 Last Admin: 07/16/19 03:43 Dose: 650 mg Heparin Sodium (Porcine) (Heparin -) 5,000 unit SQ BID NATALIA Last Admin: 07/15/19 22:14 Dose: 5,000 unit Insulin Aspart (Novolog Vial Sliding Scale -) 1 vial SQ TIDAC NATALIA; Protocol Last Admin: 07/16/19 06:52 Dose: 4 units Insulin Aspart (Novolog Vial Sliding Scale -) 1 vial SQ HS NATALIA; Protocol Last Admin: 07/15/19 22:14 Dose: Not Given - Objective Vital Signs: Vital Signs Temperature 97.6 F 07/16/19 06:45 Pulse Rate 78 07/16/19 06:45 Respiratory Rate 18 07/16/19 06:45 Blood Pressure 109/56 L 07/16/19 06:45 O2 Sat by Pulse Oximetry (%) 95 07/15/19 21:00 Constitutional: Yes: No Distress, Calm, Cachectic Cardiovascular: Yes: Regular Rate and Rhythm Respiratory: Yes: Regular Gastrointestinal: Yes: WNL Genitourinary: Yes: WNL Musculoskeletal: Yes: WNL Extremities: Yes: WNL Edema: No Peripheral Pulses WNL: Yes Neurological: Yes: Alert, Oriented Psychiatric: Yes: Alert, Oriented Labs: CBC, BMP 07/15/19 05:10 07/15/19 05:10 Assessment/Plan (1) Right upper lobe consolidation Assessment/Plan: -Pulm consult -no leukocytosis -afebrile -O2 via NC -keep SpO2 >90% -CXR shows extensive COPD -Bronchodilators -ID consult Code(s): J18.1 - LOBAR PNEUMONIA, UNSPECIFIED ORGANISM (2) COPD suggested by initial evaluation Assessment/Plan: -Pulm consult -no leukocytosis -afebrile -O2 via NC -keep SpO2 >90% -CXR shows extensive COPD -Bronchodilators Code(s): J44.9 - CHRONIC OBSTRUCTIVE PULMONARY DISEASE, UNSPECIFIED (3) Moderate protein-calorie malnutrition Assessment/Plan: -dietary consult Code(s): E44.0 - MODERATE PROTEIN-CALORIE MALNUTRITION (4) Poorly controlled diabetes mellitus Assessment/Plan: -ISS -HgA1c 7.0 -BGM ACHS Code(s): E11.65 - TYPE 2 DIABETES MELLITUS WITH HYPERGLYCEMIA (5) Tuberculosis Assessment/Plan: -Pulm consult -no leukocytosis -afebrile -O2 via NC -keep SpO2 >90% -CXR shows extensive COPD -Bronchodilators -AFB pending result -quantiferon negative Code(s): A15.9 - RESPIRATORY TUBERCULOSIS UNSPECIFIED Assessment/Plan see problem list dvt ppx
[2019-07-16] MEDS: HEPARIN NA (PORCINE) 5,000 UNITS/ML 1ML VIAL SQ SCH ×2 (09:38→21:31)
--- NOTE | 2019-07-16 09:55 | PN ---
Progress Note, Physician History of Present Illness: PULMONARY ALERT,C/O COUGH,MILD CONGESTION,+ SWEATS LAST NIGHT - Current Medication List Current Medications: Active Medications Acetaminophen (Tylenol -) 650 mg PO Q4H PRN PRN Reason: PAIN LEVEL 1-5 Last Admin: 07/16/19 03:43 Dose: 650 mg Heparin Sodium (Porcine) (Heparin -) 5,000 unit SQ BID [facility] Last Admin: 07/16/19 09:38 Dose: Not Given Insulin Aspart (Novolog Vial Sliding Scale -) 1 vial SQ TIDAC [facility]; Protocol Last Admin: 07/16/19 06:52 Dose: 4 units Insulin Aspart (Novolog Vial Sliding Scale -) 1 vial SQ HS [facility]; Protocol Last Admin: 07/15/19 22:14 Dose: Not Given - Objective Vital Signs: Vital Signs Temperature 97.6 F 07/16/19 06:45 Pulse Rate 78 07/16/19 06:45 Respiratory Rate 18 07/16/19 06:45 Blood Pressure 109/56 L 07/16/19 06:45 O2 Sat by Pulse Oximetry (%) 95 07/15/19 21:00 Constitutional: Yes: Calm, Cachectic Eyes: Yes: WNL HENT: Yes: WNL Neck: Yes: WNL Cardiovascular: Yes: Regular Rate and Rhythm, S1, S2 Respiratory: Yes: Rhonchi (SCATTERED RHONCHI) Gastrointestinal: Yes: Normal Bowel Sounds, Soft Extremities: Yes: WNL Edema: No Labs: CBC, BMP Problem List - Problems (1) Right upper lobe consolidation Code(s): J18.1 - LOBAR PNEUMONIA, UNSPECIFIED ORGANISM (2) Smoker Code(s): F17.200 - NICOTINE DEPENDENCE, UNSPECIFIED, UNCOMPLICATED (3) Abdominal pain Code(s): R10.9 - UNSPECIFIED ABDOMINAL PAIN (4) Failure to thrive Code(s): [id number] - Qualifiers: Failure to thrive age range: in adult Qualified Code(s): R62.7 - Adult failure to thrive (5) Moderate malnutrition Code(s): E44.0 - MODERATE PROTEIN-CALORIE MALNUTRITION (6) Moderate protein-calorie malnutrition Code(s): E44.0 - MODERATE PROTEIN-CALORIE MALNUTRITION (7) PNA (pneumonia) Code(s): J18.9 - PNEUMONIA, UNSPECIFIED ORGANISM Assessment/Plan A/P Pulmonary Consolidation r/o TB COPD DM h/o CVA - given negative quantiferon, CT findings likely chronic - sputum AFB x 3 - inhaled bronchodilators as needed - DVT prophylaxis DR RODRIGUEZ
[2019-07-16] MEDS: ALBUTEROL SO4 2.5/IPRATROPIUM 0.5 INH SOL 3 ML VIAL.NEB. NEB SCH ×2 (14:20→20:22)
[2019-07-17] MEDS: ACETAMINOPHEN 325 MG TABLET (FP) PO PRN (04:00)
[2019-07-17] MEDS: INSULIN SLIDING SCALE (NOVOLOG) 1 VIAL SQ SCH ×4 (06:57→21:58)
[2019-07-17] MEDS: ALBUTEROL SO4 2.5/IPRATROPIUM 0.5 INH SOL 3 ML VIAL.NEB. NEB SCH ×3 (08:46→20:20)
--- NOTE | 2019-07-17 08:51 | PN ---
Progress Note, Physician Chief Complaint: ASLEEP/COMFORTABLE NO NEW EVENTS OVER NIGHT - Current Medication List Current Medications: Active Medications Acetaminophen (Tylenol -) 650 mg PO Q4H PRN PRN Reason: PAIN LEVEL 1-5 Last Admin: 07/17/19 04:00 Dose: 650 mg Albuterol/Ipratropium (Duoneb -) 1 amp NEB RTID [facility] Last Admin: 07/17/19 08:46 Dose: 1 amp Heparin Sodium (Porcine) (Heparin -) 5,000 unit SQ BID [facility] Insulin Aspart (Novolog Vial Sliding Scale -) 1 vial SQ TIDAC [facility]; Protocol Last Admin: 07/17/19 06:57 Dose: 3 units Insulin Aspart (Novolog Vial Sliding Scale -) 1 vial SQ HS [facility]; Protocol Last Admin: 07/16/19 21:31 Dose: Not Given - Objective Vital Signs: Vital Signs Temperature 98.2 F 07/17/19 07:00 Pulse Rate 78 07/17/19 07:00 Respiratory Rate 18 07/17/19 07:00 Blood Pressure 106/51 L 07/17/19 07:00 O2 Sat by Pulse Oximetry (%) 96 07/16/19 20:39 Constitutional: Yes: Mild Distress Cardiovascular: Yes: Regular Rate and Rhythm Respiratory: Yes: Other Gastrointestinal: Yes: Soft Genitourinary: Yes: WNL Labs: CBC, BMP 07/15/19 05:10 07/15/19 05:10 Problem List - Problems (1) Right upper lobe consolidation Code(s): J18.1 - LOBAR PNEUMONIA, UNSPECIFIED ORGANISM (2) Smoker Code(s): F17.200 - NICOTINE DEPENDENCE, UNSPECIFIED, UNCOMPLICATED (3) COPD suggested by initial evaluation Code(s): J44.9 - CHRONIC OBSTRUCTIVE PULMONARY DISEASE, UNSPECIFIED Assessment/Plan PULM/ID CONSULT APPRECIATED QUANTEFIRON NEGATIVE AFB PENDING OOB TO CHAIR DVT PROPHLAXIS
[2019-07-17] MEDS: HEPARIN NA (PORCINE) 5,000 UNITS/ML 1ML VIAL SQ SCH ×2 (09:26→21:59)
--- NOTE | 2019-07-17 09:34 | PN ---
Progress Note (short form) - Note Progress Note: Denies shortness of breath. Still with some cough with clear sputum. Intake & Output 07/14/19 07/15/19 07/16/19 07/17/19 23:59 23:59 23:59 23:59 Intake Total 240 1540 720 500 Output Total 300 200 Balance 240 1240 520 500 Weight 100 lb 2 oz Last Vital Signs Temp Pulse Resp BP Pulse Ox 98.2 F 78 18 106/51 L 96 07/17/19 07:00 07/17/19 07:00 07/17/19 07:00 07/17/19 07:00 07/16/19 20:39 Active Medications Acetaminophen (Tylenol -) 650 mg PO Q4H PRN PRN Reason: PAIN LEVEL 1-5 Last Admin: 07/17/19 04:00 Dose: 650 mg Albuterol/Ipratropium (Duoneb -) 1 amp NEB RTID [facility] Last Admin: 07/17/19 08:46 Dose: 1 amp Heparin Sodium (Porcine) (Heparin -) 5,000 unit SQ BID [facility] Last Admin: 07/17/19 09:26 Dose: Not Given Insulin Aspart (Novolog Vial Sliding Scale -) 1 vial SQ TIDAC [facility]; Protocol Last Admin: 07/17/19 06:57 Dose: 3 units Insulin Aspart (Novolog Vial Sliding Scale -) 1 vial SQ HS [facility]; Protocol Last Admin: 07/16/19 21:31 Dose: Not Given Gen: NAD at rest Heart: RRR Lung: decreased breath sounds at the bases Abd: soft, nontender Ext: no edema A/P Pulmonary Consolidation r/o TB COPD DM h/o CVA - given negative quantiferon, CT findings likely chronic - sputum AFB x 3: 1 reported negative and 2 are to be reported - inhaled bronchodilators as needed - DVT prophylaxis Dr Jeffers Problem List - Problems (1) Smoker Code(s): F17.200 - NICOTINE DEPENDENCE, UNSPECIFIED, UNCOMPLICATED (2) Right upper lobe consolidation Code(s): J18.1 - LOBAR PNEUMONIA, UNSPECIFIED ORGANISM (3) COPD suggested by initial evaluation Code(s): J44.9 - CHRONIC OBSTRUCTIVE PULMONARY DISEASE, UNSPECIFIED (4) Moderate protein-calorie malnutrition Code(s): E44.0 - MODERATE PROTEIN-CALORIE MALNUTRITION (5) Musculoskeletal pain Code(s): M79.18 - MYALGIA, OTHER SITE (6) PNA (pneumonia) Code(s): J18.9 - PNEUMONIA, UNSPECIFIED ORGANISM (7) Tuberculosis Code(s): A15.9 - RESPIRATORY TUBERCULOSIS UNSPECIFIED
[2019-07-18] MEDS: ACETAMINOPHEN 325 MG TABLET (FP) PO PRN (02:34)
[2019-07-18] MEDS: INSULIN SLIDING SCALE (NOVOLOG) 1 VIAL SQ SCH ×4 (06:27→21:51)
[2019-07-18] MEDS: ALBUTEROL SO4 2.5/IPRATROPIUM 0.5 INH SOL 3 ML VIAL.NEB. NEB SCH ×3 (08:16→20:38)
[2019-07-18] MEDS: HEPARIN NA (PORCINE) 5,000 UNITS/ML 1ML VIAL SQ SCH ×2 (10:09→21:48)
--- NOTE | 2019-07-18 12:20 | PN ---
Progress Note, Physician Chief Complaint: NO COMPLAINTS OFFERED BY THE PATIENT - Current Medication List Current Medications: Active Medications Acetaminophen (Tylenol -) 650 mg PO Q4H PRN PRN Reason: PAIN LEVEL 1-5 Last Admin: 07/18/19 02:34 Dose: 650 mg Albuterol/Ipratropium (Duoneb -) 1 amp NEB RTID [facility] Last Admin: 07/18/19 08:16 Dose: 1 amp Heparin Sodium (Porcine) (Heparin -) 5,000 unit SQ BID [facility] Last Admin: 07/18/19 10:09 Dose: Not Given Insulin Aspart (Novolog Vial Sliding Scale -) 1 vial SQ TIDAC [facility]; Protocol Last Admin: 07/18/19 06:27 Dose: 2 units Insulin Aspart (Novolog Vial Sliding Scale -) 1 vial SQ HS [facility]; Protocol Last Admin: 07/17/19 21:58 Dose: 2 unit - Objective Vital Signs: Vital Signs Temperature 98.6 F 07/18/19 10:10 Pulse Rate 89 07/18/19 10:10 Respiratory Rate 18 07/18/19 10:10 Blood Pressure 101/58 L 07/18/19 10:10 O2 Sat by Pulse Oximetry (%) 96 07/18/19 09:00 Constitutional: Yes: No Distress Cardiovascular: Yes: Regular Rate and Rhythm Respiratory: Yes: Regular Gastrointestinal: Yes: WNL Musculoskeletal: Yes: Other Neurological: Yes: Pre-Existing Deficit Labs: CBC, BMP 07/15/19 05:10 07/15/19 05:10 Problem List - Problems (1) Right upper lobe consolidation Code(s): J18.1 - LOBAR PNEUMONIA, UNSPECIFIED ORGANISM (2) Smoker Code(s): F17.200 - NICOTINE DEPENDENCE, UNSPECIFIED, UNCOMPLICATED (3) COPD suggested by initial evaluation Code(s): J44.9 - CHRONIC OBSTRUCTIVE PULMONARY DISEASE, UNSPECIFIED Assessment/Plan PULM/ID CONSULT APPRECIATED QUANTEFIRON NEGATIVE AFB PENDING OOB TO CHAIR DVT PROPHLAXIS
--- NOTE | 2019-07-18 12:59 | PN ---
Progress Note, Physician History of Present Illness: pulmonary alert,comfortable,-sob,less cough - Current Medication List Current Medications: Active Medications Acetaminophen (Tylenol -) 650 mg PO Q4H PRN PRN Reason: PAIN LEVEL 1-5 Last Admin: 07/18/19 02:34 Dose: 650 mg Albuterol/Ipratropium (Duoneb -) 1 amp NEB RTID [facility] Last Admin: 07/18/19 08:16 Dose: 1 amp Heparin Sodium (Porcine) (Heparin -) 5,000 unit SQ BID [facility] Last Admin: 07/18/19 10:09 Dose: Not Given Insulin Aspart (Novolog Vial Sliding Scale -) 1 vial SQ TIDAC [facility]; Protocol Last Admin: 07/18/19 11:24 Dose: 3 units Insulin Aspart (Novolog Vial Sliding Scale -) 1 vial SQ HS [facility]; Protocol Last Admin: 07/17/19 21:58 Dose: 2 unit - Objective Vital Signs: Vital Signs Temperature 98.6 F 07/18/19 10:10 Pulse Rate 89 07/18/19 10:10 Respiratory Rate 18 07/18/19 10:10 Blood Pressure 101/58 L 07/18/19 10:10 O2 Sat by Pulse Oximetry (%) 96 07/18/19 09:00 Constitutional: Yes: Calm, Cachectic Eyes: Yes: WNL HENT: Yes: WNL Neck: Yes: WNL Cardiovascular: Yes: Regular Rate and Rhythm, S1, S2 Respiratory: Yes: Rhonchi (few scattered rhonchi) Gastrointestinal: Yes: Normal Bowel Sounds, Soft Extremities: Yes: WNL Edema: No Labs: CBC, BMP 07/15/19 05:10 Problem List - Problems (1) Right upper lobe consolidation Code(s): J18.1 - LOBAR PNEUMONIA, UNSPECIFIED ORGANISM (2) Smoker Code(s): F17.200 - NICOTINE DEPENDENCE, UNSPECIFIED, UNCOMPLICATED (3) Abdominal pain Code(s): R10.9 - UNSPECIFIED ABDOMINAL PAIN (4) Failure to thrive Code(s): [id number] - Qualifiers: Failure to thrive age range: in adult Qualified Code(s): R62.7 - Adult failure to thrive (5) Moderate malnutrition Code(s): E44.0 - MODERATE PROTEIN-CALORIE MALNUTRITION (6) Moderate protein-calorie malnutrition Code(s): E44.0 - MODERATE PROTEIN-CALORIE MALNUTRITION (7) PNA (pneumonia) Code(s): J18.9 - PNEUMONIA, UNSPECIFIED ORGANISM Assessment/Plan A/P Pulmonary Consolidation r/o TB COPD DM h/o CVA - given negative quantiferon, CT findings likely chronic - sputum AFB x 3 - inhaled bronchodilators as needed - DVT prophylaxis DR RODRIGUEZ
[2019-07-18 13:52] LABS: HEMATOCRIT 39.3 % (35.4-49); HEMOGLOBIN 12.9 GM/dL (11.7-16.9); MCH 31.4 pg (25.7-33.7); MCHC 32.7 g/dl (32.0-35.9); MEAN CELL VOLUME 95.8 fl (80-96); PLATELET COUNT 271 K/MM3 (134-434); RDW 13.4 % (11.9-15.9); WHITE BLOOD COUNT 6.9 K/mm3 (4.0-10.0)
[2019-07-18 14:27] LABS: ALBUMIN 3.1 g/dl (3.4-5.0); BILIRUBIN,TOTAL 0.2 mg/dL (0.2-1); BLOOD UREA NITROGEN 19.4 mg/dL (7-18); CALCIUM 8.9 mg/dL (8.5-10.1); CREATININE 0.6 mg/dL (0.55-1.3); POTASSIUM 4.5 mmol/L (3.5-5.1); TOT PROT 7.8 g/dl (6.4-8.2)
--- NOTE | 2019-07-18 17:44 | PN ---
Progress Note, Physician History of Present Illness: REPORTS COUGH PRODUCTIVE OF YELLOW SPUTUM NO HEMOPTYSIS NO F/C QUANTIFERON (-) AFB X 1 (-) 2 PENDING - Current Medication List Current Medications: Active Medications Acetaminophen (Tylenol -) 650 mg PO Q4H PRN PRN Reason: PAIN LEVEL 1-5 Last Admin: 07/18/19 02:34 Dose: 650 mg Albuterol/Ipratropium (Duoneb -) 1 amp NEB RTID [facility] Last Admin: 07/18/19 15:35 Dose: Not Given Heparin Sodium (Porcine) (Heparin -) 5,000 unit SQ BID [facility] Last Admin: 07/18/19 10:09 Dose: Not Given Insulin Aspart (Novolog Vial Sliding Scale -) 1 vial SQ TIDAC [facility]; Protocol Last Admin: 07/18/19 17:40 Dose: Not Given Insulin Aspart (Novolog Vial Sliding Scale -) 1 vial SQ HS [facility]; Protocol Last Admin: 07/17/19 21:58 Dose: 2 unit - Objective Vital Signs: Vital Signs Temperature 98.2 F 07/18/19 13:59 Pulse Rate 96 H 07/18/19 13:59 Respiratory Rate 17 07/18/19 13:59 Blood Pressure 112/67 07/18/19 13:59 O2 Sat by Pulse Oximetry (%) 96 07/18/19 09:00 Constitutional: Yes: No Distress Cardiovascular: Yes: Regular Rate and Rhythm, S1, S2 Respiratory: Yes: Rhonchi Gastrointestinal: Yes: Normal Bowel Sounds, Soft. No: Tenderness Labs: CBC, BMP 07/18/19 13:20 07/18/19 13:20 Assessment/Plan CHRONIC BRONCHIECTASIS DOUBT TB AWAIT 2ND AND 3RD SPUTUM AFB IF NEGATIVE, D/C ISOLATION OBSERVE OFF ANTIBIOTICS
--- NOTE | 2019-07-18 18:59 | CONS ---
DATE OF CONSULTATION: 07/12/2019 HISTORY OF PRESENT ILLNESS: The patient is a 68-year-old male being evaluated for possible pulmonary tuberculosis. History was obtained from the chart as he cannot give a reliable history. He was recently hospitalized from June 26 to June 27 with a right upper lobe pneumonia. At that time, he was being evaluated for possible tuberculosis. The patient eloped. According to the chart, he was advised by the [facility] to return to the hospital. He was readmitted on July 09, 2019. A CT scan from his previous admission showed a right upper lobe infiltrate which appeared chronic in nature. There was extensive consolidation and atelectasis within the right upper lobe with air bronchograms. The patient reports a 60-pound weight loss over the past 10 years. He reports a cough productive of yellowish sputum. He denies any hemoptysis. No complaints of chest pain. The patient states he was born in [place]. He has been living in [place] since age 10. He denies any exposure to TB. His TBD has been negative in the past. In addition, he has had HIV testing in the past which has been negative. PAST MEDICAL HISTORY: Positive for COPD, diabetes mellitus, stroke. ALLERGIES: No known drug allergies. MEDICATIONS: Tylenol, albuterol, insulin. SOCIAL HISTORY: He resides in the community. He is a smoker. He denies HIV risk factors and reports that he tested HIV negative in the past. REVIEW OF SYSTEMS: Neurologic: Positive for stroke. Cardiac: Negative for chest pain or palpitations. Respiratory: As per HPI. Gastrointestinal: Negative for vomiting or diarrhea. Genitourinary: Negative for urinary tract infection. LABORATORY DATA: White count 4.7, 59 neutrophils, 23 lymphocytes, 11 monocytes, 4 eosinophils. Hematocrit 36.6, platelet count 234, BUN 19, creatinine 0.7, serum AFP negative x1. PHYSICAL EXAMINATION: General: The patient appears cachectic. He is in no acute distress. His breathing is unlabored. Vital Signs: Temperature 98.1, pulse 101 and regular, blood pressure 88/58, respiratory rate 18 per minute. HEENT:: Sclerae anicteric. Heart: Heart sounds S1, S2. Lungs: Scattered rhonchi. Abdomen: Soft. No tenderness was elicited. No mass, rebound or rigidity. Extremities: Negative for edema. IMPRESSION: 1. Right upper lobe pneumonia; rule out pulmonary tuberculosis. 2. Wasting syndrome. PLAN: 1. Respiratory isolation. 2. Sputum AFB x3. 3. Sputum TB PCR. 4. QuantiFERON. 5. HIV testing. 6. Observe off antibiotic therapy. Thank you for the kind referral. RADHA PRADO M.D. ANGÉLICA/[id number]
[2019-07-19] MEDS: INSULIN SLIDING SCALE (NOVOLOG) 1 VIAL SQ SCH ×4 (06:31→21:39)
[2019-07-19] MEDS: ALBUTEROL SO4 2.5/IPRATROPIUM 0.5 INH SOL 3 ML VIAL.NEB. NEB SCH ×3 (08:16→20:10)
--- NOTE | 2019-07-19 10:27 | PN ---
Progress Note, Physician Chief Complaint: AWAKE ALERT WALKING IN HALLWAYS UPSET AND AGITATED - Current Medication List Current Medications: Active Medications Acetaminophen (Tylenol -) 650 mg PO Q4H PRN PRN Reason: PAIN LEVEL 1-5 Last Admin: 07/18/19 02:34 Dose: 650 mg Albuterol/Ipratropium (Duoneb -) 1 amp NEB RTID [facility] Last Admin: 07/19/19 08:16 Dose: Not Given Heparin Sodium (Porcine) (Heparin -) 5,000 unit SQ BID [facility] Last Admin: 07/18/19 21:48 Dose: Not Given Insulin Aspart (Novolog Vial Sliding Scale -) 1 vial SQ TIDAC [facility]; Protocol Last Admin: 07/19/19 06:31 Dose: 3 units Insulin Aspart (Novolog Vial Sliding Scale -) 1 vial SQ HS [facility]; Protocol Last Admin: 07/18/19 21:51 Dose: 2 unit - Objective Vital Signs: Vital Signs Temperature 98.1 F 07/19/19 06:00 Pulse Rate 84 07/19/19 06:00 Respiratory Rate 16 07/19/19 06:00 Blood Pressure 100/40 L 07/19/19 06:00 O2 Sat by Pulse Oximetry (%) 96 07/18/19 20:31 Constitutional: Yes: Mild Distress Cardiovascular: Yes: Regular Rate and Rhythm Respiratory: Yes: Diminished Gastrointestinal: Yes: WNL Genitourinary: Yes: WNL Musculoskeletal: Yes: WNL Extremities: Yes: WNL Edema: No Integumentary: Yes: WNL Wound/Incision: Yes: Clean/Dry Neurological: Yes: WNL Psychiatric: Yes: Agitated Labs: CBC, BMP 07/18/19 13:20 07/18/19 13:20 Problem List - Problems (1) Right upper lobe consolidation Code(s): J18.1 - LOBAR PNEUMONIA, UNSPECIFIED ORGANISM (2) Smoker Code(s): F17.200 - NICOTINE DEPENDENCE, UNSPECIFIED, UNCOMPLICATED (3) COPD suggested by initial evaluation Code(s): J44.9 - CHRONIC OBSTRUCTIVE PULMONARY DISEASE, UNSPECIFIED Assessment/Plan PULM/ID CONSULT APPRECIATED QUANTEFIRON NEGATIVE AFB PENDING OOB TO CHAIR DVT PROPHLAXIS NICOTINE PATCH ORDERED REMERON FOR ANXIETY/DEPRESSION/APPETITE STIMULANT
[2019-07-19] MEDS: HEPARIN NA (PORCINE) 5,000 UNITS/ML 1ML VIAL SQ SCH ×2 (11:05→21:39)
[2019-07-19] MEDS: NICOTINE 21 MG/24 HOURS TOPICAL PATCH TD SCH (11:05)
--- NOTE | 2019-07-19 11:41 | PN ---
Progress Note, Physician History of Present Illness: pulmonary alert,no distress,less cough,-sob - Current Medication List Current Medications: Active Medications Acetaminophen (Tylenol -) 650 mg PO Q4H PRN PRN Reason: PAIN LEVEL 1-5 Last Admin: 07/18/19 02:34 Dose: 650 mg Albuterol/Ipratropium (Duoneb -) 1 amp NEB RTID [facility] Last Admin: 07/19/19 08:16 Dose: Not Given Amino Acids (Prosource No Carb Liquid Pkt) 30 ml PO BID@0800,1730 [facility] Heparin Sodium (Porcine) (Heparin -) 5,000 unit SQ BID [facility] Last Admin: 07/19/19 11:05 Dose: Not Given Insulin Aspart (Novolog Vial Sliding Scale -) 1 vial SQ TIDAC [facility]; Protocol Last Admin: 07/19/19 11:06 Dose: Not Given Insulin Aspart (Novolog Vial Sliding Scale -) 1 vial SQ HS [facility]; Protocol Last Admin: 07/18/19 21:51 Dose: 2 unit Mirtazapine (Remeron -) 15 mg PO HS [facility] Nicotine (Nicoderm Patch -) 21 mg TD DAILY [facility] Last Admin: 07/19/19 11:05 Dose: Not Given - Objective Vital Signs: Vital Signs Temperature 98.1 F 07/19/19 06:00 Pulse Rate 84 07/19/19 06:00 Respiratory Rate 16 07/19/19 06:00 Blood Pressure 100/40 L 07/19/19 06:00 O2 Sat by Pulse Oximetry (%) 96 07/18/19 20:31 Constitutional: Yes: Calm, Cachectic Eyes: Yes: WNL HENT: Yes: WNL Neck: Yes: WNL Cardiovascular: Yes: Regular Rate and Rhythm, S1, S2 Respiratory: Yes: Rhonchi Gastrointestinal: Yes: Normal Bowel Sounds, Soft Extremities: Yes: WNL Edema: No Labs: CBC, BMP Problem List - Problems (1) Right upper lobe consolidation Code(s): J18.1 - LOBAR PNEUMONIA, UNSPECIFIED ORGANISM (2) Smoker Code(s): F17.200 - NICOTINE DEPENDENCE, UNSPECIFIED, UNCOMPLICATED (3) Abdominal pain Code(s): R10.9 - UNSPECIFIED ABDOMINAL PAIN (4) Failure to thrive Code(s): [id number] - Qualifiers: Failure to thrive age range: in adult Qualified Code(s): R62.7 - Adult failure to thrive (5) Moderate malnutrition Code(s): E44.0 - MODERATE PROTEIN-CALORIE MALNUTRITION (6) Moderate protein-calorie malnutrition Code(s): E44.0 - MODERATE PROTEIN-CALORIE MALNUTRITION (7) PNA (pneumonia) Code(s): J18.9 - PNEUMONIA, UNSPECIFIED ORGANISM Assessment/Plan A/P Pulmonary Consolidation r/o TB COPD DM h/o CVA - given negative quantiferon, CT findings likely chronic - sputum AFB x 3 - inhaled bronchodilators as needed - DVT prophylaxis DR RODRIGUEZ
[2019-07-19] MEDS: AMINO ACIDS/PROTEIN HYDROLYS 30 ML LIQUID.PKT PO SCH (17:16)
[2019-07-19] MEDS: ACETAMINOPHEN 325 MG TABLET (FP) PO PRN (21:38)
[2019-07-19] MEDS: MIRTAZAPINE 15 MG TABLET (FP) PO SCH (21:38)
[2019-07-20] MEDS: INSULIN SLIDING SCALE (NOVOLOG) 1 VIAL SQ SCH ×4 (06:58→21:54)
[2019-07-20] MEDS: ALBUTEROL SO4 2.5/IPRATROPIUM 0.5 INH SOL 3 ML VIAL.NEB. NEB SCH ×3 (08:10→20:15)
[2019-07-20] MEDS: AMINO ACIDS/PROTEIN HYDROLYS 30 ML LIQUID.PKT PO SCH ×2 (08:59→17:02)
--- NOTE | 2019-07-20 10:29 | PN ---
Progress Note, Physician Chief Complaint: ASLEEP NO ACUTE CHANGES - Current Medication List Current Medications: Active Medications Acetaminophen (Tylenol -) 650 mg PO Q4H PRN PRN Reason: PAIN LEVEL 1-5 Last Admin: 07/19/19 21:38 Dose: 650 mg Albuterol/Ipratropium (Duoneb -) 1 amp NEB RTID [facility] Last Admin: 07/20/19 08:10 Dose: 1 amp Amino Acids (Prosource No Carb Liquid Pkt) 30 ml PO BID@0800,1730 [facility] Last Admin: 07/20/19 08:59 Dose: 30 ml Heparin Sodium (Porcine) (Heparin -) 5,000 unit SQ BID [facility] Last Admin: 07/19/19 21:39 Dose: Not Given Insulin Aspart (Novolog Vial Sliding Scale -) 1 vial SQ TIDAC [facility]; Protocol Last Admin: 07/20/19 06:58 Dose: 3 units Insulin Aspart (Novolog Vial Sliding Scale -) 1 vial SQ HS [facility]; Protocol Last Admin: 07/19/19 21:39 Dose: Not Given Mirtazapine (Remeron -) 15 mg PO HS [facility] Last Admin: 07/19/19 21:38 Dose: 15 mg Nicotine (Nicoderm Patch -) 21 mg TD DAILY [facility] Last Admin: 07/19/19 11:05 Dose: Not Given - Objective Vital Signs: Vital Signs Temperature 98 F 07/20/19 06:00 Pulse Rate 100 H 07/20/19 06:00 Respiratory Rate 18 07/20/19 06:00 Blood Pressure 102/66 07/20/19 06:00 O2 Sat by Pulse Oximetry (%) 97 07/19/19 21:00 Constitutional: Yes: No Distress Cardiovascular: Yes: Regular Rate and Rhythm Respiratory: Yes: Diminished Musculoskeletal: Yes: WNL Psychiatric: Yes: Other (ANXIOUS) Labs: CBC, BMP 07/18/19 13:20 07/18/19 13:20 Problem List - Problems (1) Right upper lobe consolidation Code(s): J18.1 - LOBAR PNEUMONIA, UNSPECIFIED ORGANISM (2) Smoker Code(s): F17.200 - NICOTINE DEPENDENCE, UNSPECIFIED, UNCOMPLICATED (3) COPD suggested by initial evaluation Code(s): J44.9 - CHRONIC OBSTRUCTIVE PULMONARY DISEASE, UNSPECIFIED Assessment/Plan PULM/ID CONSULT APPRECIATED QUANTEFIRON NEGATIVE AFB PRELIM X1 NEGATIVE OOB TO CHAIR DVT PROPHLAXIS NICOTINE PATCH ORDERED REMERON FOR ANXIETY/DEPRESSION/APPETITE STIMULANT
--- NOTE | 2019-07-20 11:40 | PN ---
Progress Note, Physician History of Present Illness: pulmonary alert,comfortable,-sob,+ cough - Current Medication List Current Medications: Active Medications Acetaminophen (Tylenol -) 650 mg PO Q4H PRN PRN Reason: PAIN LEVEL 1-5 Last Admin: 07/19/19 21:38 Dose: 650 mg Albuterol/Ipratropium (Duoneb -) [address] [facility] Last Admin: 07/20/19 08:10 Dose: 1 amp Amino Acids (Prosource No Carb Liquid Pkt) 30 ml PO BID@0800,1730 [facility] Last Admin: 07/20/19 08:59 Dose: 30 ml Heparin Sodium (Porcine) (Heparin -) 5,[address] [facility] Last Admin: 07/19/19 21:39 Dose: Not Given Insulin Aspart (Novolog Vial Sliding Scale -) [address] [facility]; Protocol Last Admin: 07/20/19 06:58 Dose: 3 units Insulin Aspart (Novolog Vial Sliding Scale -) [address] [facility]; Protocol Last Admin: 07/19/19 21:39 Dose: Not Given Mirtazapine (Remeron -) [address] [facility] Last Admin: 07/19/19 21:38 Dose: 15 mg Nicotine (Nicoderm Patch -) [address] [facility] Last Admin: 07/19/19 11:05 Dose: Not Given - Objective Vital Signs: Vital Signs Temperature 98 F 07/20/19 06:00 Pulse Rate 100 H 07/20/19 06:00 Respiratory Rate 18 07/20/19 06:00 Blood Pressure 102/66 07/20/19 06:00 O2 Sat by Pulse Oximetry (%) 96 07/20/19 11:27 Constitutional: Yes: Calm, Cachectic Eyes: Yes: WNL HENT: Yes: WNL Neck: Yes: WNL Cardiovascular: Yes: Regular Rate and Rhythm, S1, S2 Respiratory: Yes: Rhonchi (few rhonchi) Gastrointestinal: Yes: Normal Bowel Sounds, Soft Extremities: Yes: WNL Edema: No Labs: CBC, BMP Problem List - Problems (1) Right upper lobe consolidation Code(s): J18.1 - LOBAR PNEUMONIA, UNSPECIFIED ORGANISM (2) Smoker Code(s): F17.200 - NICOTINE DEPENDENCE, UNSPECIFIED, UNCOMPLICATED (3) Abdominal pain Code(s): R10.9 - UNSPECIFIED ABDOMINAL PAIN (4) Failure to thrive Code(s): ENA2429 - Qualifiers: Failure to thrive age range: in adult Qualified Code(s): R62.7 - Adult failure to thrive (5) Moderate malnutrition Code(s): E44.0 - MODERATE PROTEIN-CALORIE MALNUTRITION (6) Moderate protein-calorie malnutrition Code(s): E44.0 - MODERATE PROTEIN-CALORIE MALNUTRITION (7) PNA (pneumonia) Code(s): J18.9 - PNEUMONIA, UNSPECIFIED ORGANISM Assessment/Plan A/P Pulmonary Consolidation r/o TB COPD DM h/o CVA - given negative quantiferon, CT findings likely chronic - sputum AFB x 2 negative - inhaled bronchodilators as needed - DVT prophylaxis DR RODRIGUEZ
[2019-07-20] MEDS: HEPARIN NA (PORCINE) 5,000 UNITS/ML 1ML VIAL SQ SCH ×2 (11:55→21:54)
[2019-07-20] MEDS: NICOTINE 21 MG/24 HOURS TOPICAL PATCH TD SCH (11:56)
[2019-07-20] MEDS: ACETAMINOPHEN 325 MG TABLET (FP) PO PRN ×2 (12:08→21:51)
[2019-07-20] MEDS: MIRTAZAPINE 15 MG TABLET (FP) PO SCH (21:51)
[2019-07-21] MEDS: INSULIN SLIDING SCALE (NOVOLOG) 1 VIAL SQ SCH ×3 (06:27→18:11)
[2019-07-21] MEDS: ALBUTEROL SO4 2.5/IPRATROPIUM 0.5 INH SOL 3 ML VIAL.NEB. NEB SCH (08:05)
--- NOTE | 2019-07-21 08:40 | PN ---
Progress Note, Physician Chief Complaint: AWAKE WALKING IN HALLWAY WITH MASK - Current Medication List Current Medications: Active Medications Acetaminophen (Tylenol -) 650 mg PO Q4H PRN PRN Reason: PAIN LEVEL 1-5 Last Admin: 07/20/19 21:51 Dose: 650 mg Albuterol/Ipratropium (Duoneb -) 1 amp NEB RTID [facility] Last Admin: 07/21/19 08:05 Dose: Not Given Amino Acids (Prosource No Carb Liquid Pkt) 30 ml PO BID@0800,1730 [facility] Last Admin: 07/20/19 17:02 Dose: 30 ml Heparin Sodium (Porcine) (Heparin -) 5,000 unit SQ BID [facility] Last Admin: 07/20/19 21:54 Dose: Not Given Insulin Aspart (Novolog Vial Sliding Scale -) 1 vial SQ TIDAC [facility]; Protocol Last Admin: 07/21/19 06:27 Dose: 3 units Insulin Aspart (Novolog Vial Sliding Scale -) 1 vial SQ HS [facility]; Protocol Last Admin: 07/20/19 21:54 Dose: Not Given Mirtazapine (Remeron -) 15 mg PO HS [facility] Last Admin: 07/20/19 21:51 Dose: 15 mg Nicotine (Nicoderm Patch -) 21 mg TD DAILY [facility] Last Admin: 07/20/19 11:56 Dose: Not Given - Objective Vital Signs: Vital Signs Temperature 97.7 F 07/21/19 06:00 Pulse Rate 97 H 07/21/19 06:00 Respiratory Rate 18 07/21/19 06:00 Blood Pressure 106/65 07/21/19 06:00 O2 Sat by Pulse Oximetry (%) 98 07/20/19 21:00 Constitutional: Yes: No Distress Cardiovascular: Yes: Regular Rate and Rhythm Respiratory: Yes: Diminished Gastrointestinal: Yes: WNL Genitourinary: Yes: WNL Neurological: Yes: WNL Psychiatric: Yes: Other Labs: CBC, BMP 07/18/19 13:20 07/18/19 13:20 Problem List - Problems (1) Right upper lobe consolidation Code(s): J18.1 - LOBAR PNEUMONIA, UNSPECIFIED ORGANISM (2) Smoker Code(s): F17.200 - NICOTINE DEPENDENCE, UNSPECIFIED, UNCOMPLICATED (3) COPD suggested by initial evaluation Code(s): J44.9 - CHRONIC OBSTRUCTIVE PULMONARY DISEASE, UNSPECIFIED Assessment/Plan PULM/ID CONSULT APPRECIATED QUANTEFIRON NEGATIVE AFB PRELIM X1 NEGATIVE OOB TO CHAIR DVT PROPHLAXIS NICOTINE PATCH ORDERED REMERON FOR ANXIETY/DEPRESSION/APPETITE STIMULANT
[2019-07-21] MEDS: AMINO ACIDS/PROTEIN HYDROLYS 30 ML LIQUID.PKT PO SCH ×2 (08:41→18:11)
--- NOTE | 2019-07-21 10:47 | PN ---
Progress Note, Physician History of Present Illness: pulmonary alert comfortable ,-resp distress - Current Medication List Current Medications: Active Medications Acetaminophen (Tylenol -) 650 mg PO Q4H PRN PRN Reason: PAIN LEVEL 1-5 Last Admin: 07/20/19 21:51 Dose: 650 mg Albuterol/Ipratropium (Duoneb -) 1 amp NEB RTID [facility] Last Admin: 07/21/19 08:05 Dose: Not Given Amino Acids (Prosource No Carb Liquid Pkt) 30 ml PO BID@0800,1730 [facility] Last Admin: 07/21/19 08:41 Dose: Not Given Heparin Sodium (Porcine) (Heparin -) 5,000 unit SQ BID [facility] Last Admin: 07/20/19 21:54 Dose: Not Given Insulin Aspart (Novolog Vial Sliding Scale -) 1 vial SQ TIDAC [facility]; Protocol Last Admin: 07/21/19 06:27 Dose: 3 units Insulin Aspart (Novolog Vial Sliding Scale -) 1 vial SQ HS [facility]; Protocol Last Admin: 07/20/19 21:54 Dose: Not Given Mirtazapine (Remeron -) 15 mg PO HS [facility] Last Admin: 07/20/19 21:51 Dose: 15 mg Nicotine (Nicoderm Patch -) 21 mg TD DAILY [facility] Last Admin: 07/20/19 11:56 Dose: Not Given - Objective Vital Signs: Vital Signs Temperature 97.7 F 07/21/19 06:00 Pulse Rate 97 H 07/21/19 06:00 Respiratory Rate 18 07/21/19 06:00 Blood Pressure 106/65 07/21/19 06:00 O2 Sat by Pulse Oximetry (%) 98 07/20/19 21:00 Constitutional: Yes: Calm, Cachectic Eyes: Yes: WNL HENT: Yes: WNL Neck: Yes: WNL Cardiovascular: Yes: Regular Rate and Rhythm, S1, S2 Respiratory: Yes: Rhonchi (few rhonchi) Gastrointestinal: Yes: Normal Bowel Sounds, Soft Extremities: Yes: WNL Edema: No Labs: Problem List - Problems (1) Right upper lobe consolidation Code(s): J18.1 - LOBAR PNEUMONIA, UNSPECIFIED ORGANISM (2) Smoker Code(s): F17.200 - NICOTINE DEPENDENCE, UNSPECIFIED, UNCOMPLICATED (3) Abdominal pain Code(s): R10.9 - UNSPECIFIED ABDOMINAL PAIN (4) Failure to thrive Code(s): NJG1329 - Qualifiers: Failure to thrive age range: in adult Qualified Code(s): R62.7 - Adult failure to thrive (5) Moderate malnutrition Code(s): E44.0 - MODERATE PROTEIN-CALORIE MALNUTRITION (6) Moderate protein-calorie malnutrition Code(s): E44.0 - MODERATE PROTEIN-CALORIE MALNUTRITION (7) PNA (pneumonia) Code(s): J18.9 - PNEUMONIA, UNSPECIFIED ORGANISM Assessment/Plan A/P Pulmonary Consolidation r/o TB COPD DM h/o CVA - given negative quantiferon, CT findings likely chronic - sputum AFB x 2 negative - inhaled bronchodilators as needed - DVT prophylaxis DR RODRIGUEZ
[2019-07-21] MEDS: NICOTINE 21 MG/24 HOURS TOPICAL PATCH TD SCH (10:55)
[2019-07-21] MEDS: HEPARIN NA (PORCINE) 5,000 UNITS/ML 1ML VIAL SQ SCH (10:55)
[2019-07-21 13:59] VITALS: TEMP 97.9
[2019-07-21 14:10] VITALS: BP 104/55; PULSE 119
--- NOTE | 2019-07-21 16:40 | DS ---
Physical Examination Vital Signs: Vital Signs Temperature 97.9 F 07/21/19 14:09 Pulse Rate 119 H 07/21/19 14:09 Respiratory Rate 18 07/21/19 14:09 Blood Pressure 104/55 L 07/21/19 14:09 O2 Sat by Pulse Oximetry (%) 98 07/21/19 10:00 Findings/Remarks: afb x 3 neg Labs: CBC, BMP 07/18/19 13:20 07/18/19 13:20 Discharge Summary Problems reviewed: Yes Reason For Visit: TUBERCULOSIS Current Active Problems Evaluation by medical service required (Acute) Right upper lobe consolidation (Acute) Smoker (Acute) Hospital Course: TB workup negative Condition: Good - Instructions Diet, Activity, Other Instructions: see dr pennington in 1 week Referrals: Magno Pennington MD [Primary Care Provider] - Disposition: HOME - Home Medications Comprehensive Discharge Medication List: Ambulatory Orders Acetaminophen [Tylenol .Regular Strength -] 650 mg PO Q4H PRN tablet 07/21/19 Albuterol 2.5/Ipratropium 0.5 [Duoneb -] 1 amp NEB RTID #120 amp 07/21/19 Mirtazapine [Remeron -] 15 mg PO HS #30 tablet 07/21/19 Nicotine Patch [Nicoderm Patch -] 21 mg TD DAILY #30 patch 07/21/19 Prescription Drug Monitoring Program (I-STOP) results: I-STOP not reviewed
--- NOTE | 2019-07-22 08:38 | PN ---
Progress Note (short form) - Note Progress Note: ADDENDUM NOTE DIAGNOSIS SEVERE MALNUTRITION IN THE SEETING OF DIABETIC PATIENT WITH WEIGHT LOSS AND TB WORKUP ASPEN CRITERIA 17.7 BMI Problem List - Problems (1) Right upper lobe consolidation Code(s): J18.1 - LOBAR PNEUMONIA, UNSPECIFIED ORGANISM (2) Smoker Code(s): F17.200 - NICOTINE DEPENDENCE, UNSPECIFIED, UNCOMPLICATED (3) COPD suggested by initial evaluation Code(s): J44.9 - CHRONIC OBSTRUCTIVE PULMONARY DISEASE, UNSPECIFIED
== END 2019-07-21 19:28 | disposition home or self-care (01) | DRG 193 ==
LOC: JER 17:48 → JERBED 19:55 → J4S 07-10 22:36 → J4W 07-11 18:08 → J4S 07-11 18:56 → J4W 07-11 20:01 → J4S 07-11 20:21
PROVIDERS: ADMIT Internal Medicine; ATTEND Family Medicine
DX: J18.1 Lobar pneumonia, unspecified organism (principal); E43 Unspecified severe protein-calorie malnutrition; Z68.1 Body mass index [BMI] 19.9 or less, adult; E44.0 Moderate protein-calorie malnutrition; R64 Cachexia; J44.9 Chronic obstructive pulmonary disease, unspecified; E11.65 Type 2 diabetes mellitus with hyperglycemia
CPT/HCPCS: 36415; 71045-TC-FY; 80048; 80053; 82962; 83036; 83735; 84100; 84484; 85025; 85027; 86480; 87116; 87206; 87556; 93005; 93010; 94640; 99284-25; J1644

== ENCOUNTER 2019-10-10 14:39 | Inpatient (IN) | payer OTHER ==
[2019-10-10 15:02] VITALS: BMI 19.7
--- NOTE | 2019-10-10 15:05 | PDOC ---
History of Present Illness - General Chief Complaint: Shortness of Breath Stated Complaint: RESPIRATORY PROBLEM History Source: Patient Exam Limitations: No Limitations - History of Present Illness Initial Comments: 10/10/19 15:00 69 yo no known pmh lives alone here with c/o sob. and shoulder pain. pt is poor historian, unable to provide details about what hapened to his shoulder. caled EMS because he was in pain. states he has whole body pain specifically right shouler pain and is sob. no known details of trauma. no f/c does c/o chills. no cp does feel sob. per EMS pt ws seen at [facility] yesterday, unclear of what happened and pt is unable to recal why he was there. Past History - Past Medical History Allergies/Adverse Reactions: Allergies Allergy/AdvReac Type Severity Reaction Status Date / Time No Known Allergies Allergy Verified 10/10/19 15:00 CVA: Yes COPD: Yes Diabetes: Yes HTN: No (hypotension) - Psycho Social/Smoking Cessation Hx Smoking History: Current every day smoker Have you smoked in the past 12 months: Yes Number of Cigarettes Smoked Daily: 5 Information on smoking cessation initiated: Yes 'Breaking Loose' booklet given: 07/11/19 Hx Alcohol Use: No (denies) Drug/Substance Use Hx: No (denies) Review of Systems - Review of Systems Constitutional: No: Chills, Diaphoresis Respiratory: Yes: Shortness of Breath. No: Cough, Orthopnea Cardiac (ROS): No: Chest Pain Musculoskeletal: Yes: Joint Pain. No: Neck Pain Integumentary: Yes: Bruising, Other (right shoulder) All Other Systems: Reviewed and Negative *Physical Exam - Vital Signs Last Vital Signs Temp Pulse Resp BP Pulse Ox 99.3 F 120 H 26 H 126/73 98 10/10/19 14:54 10/10/19 14:54 10/10/19 14:54 10/10/19 14:54 10/10/19 14:54 - Physical Exam 10/10/19 15:02 awake alert lungs with decreased breath sounds bilat bases. increased work of breathing tachypnea. heart reg tachycardia.abd soft thin nontenderness. ext thin. right shoulder eccymotic, ttp. swollen, decreased rom secondary to pain. ED Treatment Course - LABORATORY CBC & Chemistry Diagram: 10/10/19 14:15 10/10/19 14:15 - RADIOLOGY Radiology Studies Ordered: Category Date Time Status CHEST X-RAY PORTABLE* [RAD] Stat Radiology 10/10/19 14:59 Ordered SHOULDER-RIGHT [RAD] Stat Radiology 10/10/19 14:59 Ordered Medical Decision Making - Medical Decision Making 10/10/19 15:04 69 yo unknown past med history, denies all, with right shoulder trauma, fever sob . differential trauma rib fx, shoulder fx. head trauma. infection such as pna, or aspiration, rhabdo. mi. plan labs cxr ct head neck. due to sob and fever,considered for COVID. plan influenza and covid swabs sent. 10/10/19 15:10 called [facility] for clarification as pt unable to provide history and cant recollect what happened. per ED attending. pt ws brought in off street by EMS for etoh intoxication, registered [id number], and was discharged later in evening when clinically sober. per their chart review no imaging was performed at this time. 10/10/19 15:17 10/10/19 16:27 pt with normal cxr hyperinflated. ct head negative ct cervical spine no fracture. right shoulder with humeral neck fx. plan pt to be admitted r/o covid with sob. 10/10/19 16:32 chart review pt h/o copd, chantal given inhaler ( duoneb avoided due to concerns for COvid) also given steroids. due to fever given ceftriaxone and azithromycin. steroids ordered. DR cornejo / sangita paged for right humeral neck fx. 10/10/19 17:[address] with plueral thickening scarring most right apex, similar to prior but slightly worse, questionable right middle lobe infiltrate. given ceftriaxone and azithromycin. dr hutchinson/ jordana paged, awaiting call back. no call back at this time will microblog hospitalist for admission. 10/10/19 17:08 d/w orthopedic PA, recommend Sling. given to patient, and will see inpatient. Discharge - Discharge Information Problems reviewed: Yes Clinical Impression/Diagnosis: Shortness of breath, COPD exacerbation, Fx humeral neck Condition: Good - Admission Yes - Follow up/Referral - Patient Discharge Instructions - Post Discharge Activity
[2019-10-10] MEDS ORDERED: SODIUM CHLORIDE 0.9% 1000 ML INFUS.BAG IV ONE (15:06)
[2019-10-10] MEDS ORDERED: ACETAMINOPHEN 1000 MG/100 ML VIAL (NON FORMULARY) IVPB ONE (15:06)
[2019-10-10 15:12] LABS: BASO % 0.8 % (0-2.0); HEMATOCRIT 38.6 % (35.4-49); HEMOGLOBIN 12.8 GM/dL (11.7-16.9); LYMPH % 6.3 % (8-40); MCH 30.4 pg (25.7-33.7); MCHC 33.1 g/dl (32.0-35.9); MEAN PLT VOLUME 8.7 fl (7.5-11.1); NEUT % 84.9 % (42.8-82.8); PLATELET COUNT 246 K/MM3 (134-434); RDW 13.4 % (11.9-15.9); WHITE BLOOD COUNT 11.5 K/mm3 (4.0-10.0)
[2019-10-10 16:10] LABS: ALBUMIN 3.5 g/dl (3.4-5.0); ALK PHOS 109 U/L (45-117); ANION GAP 13 MMOL/L (8-16); BLOOD UREA NITROGEN 27.7 mg/dL (7-18); CALCIUM 9.1 mg/dL (8.5-10.1); CHLORIDE 101 mmol/L (98-107); CO2 21 mmol/L (21-32); CREATININE 0.8 mg/dL (0.55-1.3); GLUCOSE,RANDOM 129 mg/dL (74-106); N-TERMINAL BNP 63.8 pg/ml (5-125); POTASSIUM 4.3 mmol/L (3.5-5.1); SGOT/AST 65 U/L (15-37); SGPT/ALT 25 U/L (13-61); SODIUM 135 mmol/L (136-145); TOT PROT 8.2 g/dl (6.4-8.2)
[2019-10-10] MEDS ORDERED: ALBUTEROL SO4 HFA INHALER IH ONE ×2 (16:29→16:33)
[2019-10-10] MEDS ORDERED: methylPREDNISolone NA SUCC 125 MG/2 ML VIAL IVPUSH ONE (16:30)
[2019-10-10] MEDS ORDERED: CEFTRIAXONE 1,000 MG in DEXTROSE 5%-WATER - 50 ML IVPB ONE (16:31)
[2019-10-10] MEDS ORDERED: AZITHROMYCIN IVPB 500 MG in DEXTROSE 5%-WATER - 250 ML IVPB ONE (16:32)
[2019-10-10] MEDS ORDERED: CEFTRIAXONE 1 GM/50 ML BAG ONE (16:34)
[2019-10-10] MEDS ORDERED: methylPREDNISolone NA SUCC 125 MG/2 ML VIAL ONE (16:34)
[2019-10-10] MEDS ORDERED: AZITHROMYCIN IVPB 500 MG/250 ML BAG IVPB ONE (16:34)
[2019-10-10 17:21] LABS: INR 1.28 (0.83-1.09); PROTHROMBIN TIME (PATIENT) 15.1 SEC (9.7-13.0)
--- NOTE | 2019-10-10 18:33 | HP ---
CHIEF COMPLAINT: short of breath and right upper arm shoulder pain PCP: unknown HISTORY OF PRESENT ILLNESS: Patient is 69 year old male with a significant past medical history of COPD. Patient also reports having right shoulder pain which he states he sustained after being kicked out of [facility] yesterday. Patient denies falls. He is a poor historian and unable to provide full past medical history. History taken from chart and ED signout. Patient complained of body aches, shortness of breath and general malaise. No recent travel, no recent sick contact, no cough. He is being ruled out for possible COVID 19 infection at this time. He will be isolated. He was given Solumedrol 125 in the ED with relief of symptoms. Currently tolerating room air and denies any shortness of breath. ER course was notable for: (1) no signs of acute alcohol withdrawal (2) right shoulder xray with acute humerus fracture, sling ordered (3) isolation covid 19, but seems low risk. will defer to pulmonary Recent Travel: none PAST MEDICAL HISTORY: copd PAST SURGICAL HISTORY: denies Social History: Smokin cigarrettes per day, then denied smoking Alcohol: 5 beers daily Drugs: denies Allergies No Known Allergies Allergy (Verified 10/10/19 15:00) HOME MEDICATIONS: PHYSICAL EXAMINATION Vital Signs - 24 hr 10/10/19 10/10/19 10/10/19 14:54 15:02 16:13 Temperature 99.3 F Pulse Rate 120 H Pulse Rate [ 100 H Apical] Respiratory 26 H 20 Rate Blood Pressure 126/73 Blood Pressure 119/71 [Left Arm] O2 Sat by Pulse 98 98 98 Oximetry (%) 10/10/19 17:00 Temperature 98.5 F Pulse Rate Pulse Rate [ 110 H Apical] Respiratory 22 H Rate Blood Pressure Blood Pressure 126/70 [Left Arm] O2 Sat by Pulse 98 Oximetry (%) GENERAL: Awake, alert, and fully oriented, in no acute distress. indonesian speaking primarily HEAD: Normal with no signs of trauma. EYES: Pupils equal, round and reactive to light, extraocular movements intact, sclera anicteric, conjunctiva clear. No lid lag. EARS, NOSE, THROAT: Ears normal, nares patent, oropharynx clear without exudates. Moist mucous membranes. NECK: Normal range of motion, supple without lymphadenopathy, JVD, or masses. LUNGS: diminished, no wheezing, tolerating room air HEART: Regular rate and rhythm ABDOMEN: Soft, nontender, not distended, normoactive bowel sounds MUSCULOSKELETAL: No bony deformities or tenderness. No CVA tenderness. UPPER EXTREMITIES: No peripheral edema. LOWER EXTREMITIES: No peripheral edema. NEUROLOGICAL: Normal speech. Normal gait. PSYCHIATRIC: Cooperative. Good eye contact. Appropriate mood and affect. SKIN: Warm, dry, normal turgor, no rashes or lesions noted, normal capillary refill. Laboratory Results - last 24 hr 10/10/19 10/10/19 10/10/19 14:10 14:10 14:15 WBC 11.5 H RBC 4.20 Hgb 12.8 Hct 38.6 MCV 92.0 MCH 30.4 MCHC 33.1 RDW 13.4 Plt Count 246 MPV 8.7 Absolute Neuts (auto) 9.7 H Neutrophils % 84.9 H D Lymphocytes % 6.3 L D Monocytes % 8.0 Eosinophils % 0.0 D Basophils % 0.8 Nucleated RBC % 0 PT with INR 15.10 H INR 1.28 H Sodium Potassium Chloride Carbon Dioxide Anion Gap BUN Creatinine Est GFR (CKD-EPI)AfAm Est GFR (CKD-EPI)NonAf Random Glucose Lactic Acid Calcium Total Bilirubin AST ALT Alkaline Phosphatase Creatine Kinase Creatine Kinase Index CK-MB (CK-2) Troponin I B-Natriuretic Peptide Total Protein Albumin Influenza A (Rapid) Influenza B (Rapid) Blood Type A POSITIVE Antibody Screen Negative 10/10/19 10/10/19 10/10/19 14:15 14:15 14:15 WBC RBC Hgb Hct MCV MCH MCHC RDW Plt Count MPV Absolute Neuts (auto) Neutrophils % Lymphocytes % Monocytes % Eosinophils % Basophils % Nucleated RBC % PT with INR INR Sodium 135 L Potassium 4.3 Chloride 101 Carbon Dioxide 21 Anion Gap 13 BUN 27.7 H Creatinine 0.8 Est GFR (CKD-EPI)AfAm 104.90 Est GFR (CKD-EPI)NonAf 90.51 Random Glucose 129 H Lactic Acid 1.7 Calcium 9.1 Total Bilirubin 1.0 AST 65 H ALT 25 Alkaline Phosphatase 109 Creatine Kinase 1159 H Creatine Kinase Index 1.3 CK-MB (CK-2) 15.5 H Troponin I < 0.02 B-Natriuretic Peptide 63.8 Total Protein 8.2 Albumin 3.5 Influenza A (Rapid) Negative Influenza B (Rapid) Negative Blood Type Antibody Screen ASSESSMENT/PLAN: Family Medical History Family History: Unable to Obtain Problem List - Problem (1) COPD exacerbation Assessment/Plan: patient wheezing on presentation to the ED and given solumedrol 125mg once will defer on further steriods at this time as he appears comfortable and is not wheezing tolerating room air will order prn oxygen as needed and scheduled duonebs pulmonary consulted on azithromcycin emperically Code(s): J44.1 - CHRONIC OBSTRUCTIVE PULMONARY DISEASE W (ACUTE) EXACERBATION (2) Fx humeral neck Assessment/Plan: for ortho to see place on a sling pain management with oxycodone Code(s): S42.213A - UNSP DISP FX OF SURGICAL NECK OF UNSP HUMERUS, INIT (3) Shortness of breath Assessment/Plan: resolved, tolerating room air Code(s): R06.02 - SHORTNESS OF BREATH (4) Poorly controlled diabetes mellitus Assessment/Plan: [id number] in a.m. Code(s): E11.65 - TYPE 2 DIABETES MELLITUS WITH HYPERGLYCEMIA (5) Prophylactic measure Assessment/Plan: fen tolerating po monitor electrolytes full code heparin as dvt prophy Code(s): Z29.9 - ENCOUNTER FOR PROPHYLACTIC MEASURES, UNSPECIFIED Visit type - Emergency Visit Emergency Visit: Yes ED Registration Date: 10/10/19 Care time: The patient presented to the Emergency Department on the above date and was hospitalized for further evaluation of their emergent condition. - New Patient This patient is new to me today: No - Critical Care Critical Care patient: No
[2019-10-10] MEDS ORDERED: FOLIC ACID INJECTION - 1 MG, THIAMINE HCL 100 MG, MULTIVIT INJECTION ADULT 10 ML in SOD... IVPB ONE (18:36)
[2019-10-10] MEDS: ALBUTEROL SO4 HFA INHALER IH SCH (21:00)
[2019-10-10] MEDS: LIDOCAINE 5% TOPICAL PATCH TP SCH (21:00)
[2019-10-10] MEDS: FOLIC ACID 1 MG TABLET (FP) PO SCH (21:00)
[2019-10-11] MEDS: oxyCODONE HCL 5 MG TABLET PO PRN ×2 (05:30→18:30)
[2019-10-11] MEDS: LIDOCAINE PATCH REMOVAL MC SCH (07:00)
[2019-10-11 07:58] LABS: HEMATOCRIT 33.6 % (35.4-49); HEMOGLOBIN 11.1 GM/dL (11.7-16.9); MCH 30.3 pg (25.7-33.7); MCHC 32.9 g/dl (32.0-35.9); MEAN CELL VOLUME 92.2 fl (80-96); PLATELET COUNT 218 K/MM3 (134-434); RBC 3.65 M/mm3 (4.00-5.60); RDW 13.2 % (11.9-15.9); WHITE BLOOD COUNT 8.8 K/mm3 (4.0-10.0)
[2019-10-11] MEDS ORDERED: PT OWN MED DRAWER 7, Y5N ONE (08:20)
[2019-10-11 08:57] LABS: ALBUMIN 2.9 g/dl (3.4-5.0); BLOOD UREA NITROGEN 23.4 mg/dL (7-18); CALCIUM 8.2 mg/dL (8.5-10.1); CREATININE 0.7 mg/dL (0.55-1.3); MAGNESIUM 2.2 mg/dL (1.8-2.4); POTASSIUM 4.9 mmol/L (3.5-5.1); TOT PROT 7.1 g/dl (6.4-8.2)
[2019-10-11] MEDS: ALBUTEROL SO4 HFA INHALER IH SCH ×4 (09:25→21:35)
[2019-10-11] MEDS: FOLIC ACID 1 MG TABLET (FP) PO SCH (09:48)
[2019-10-11] MEDS ORDERED: AZITHROMYCIN IVPB 250 MG in DEXTROSE 5%-WATER - 250 ML IVPB SCH (10:00)
[2019-10-11] MEDS: SODIUM CHLORIDE 1,000 ML IV SCH ×2 (10:25→23:40)
--- NOTE | 2019-10-11 11:31 | CON.PULM ---
Consult Consult Specialty:: PULMONARY Referred by:: SANTHOSH Casey Reason for Consultation:: r/o COVID - History of Present Illness Chief Complaint: shoulder pain History of Present Illness: 69yo male with h/o COPD, former smoker who was admitted with shoulder pain for which he is unable to explain what happened. Also had reported shortness of breath which has now resolved. No fevers, chills or sweats. No cough or wheezing. No headache, nausea or vomiting. CT chest showing chronic changes. - History Source History Provided By: Patient, Medical Record Limitations to Obtaining History: Poor Historian - Past Medical History Pulmonary: Yes: Bronchitis, Pneumonia - Alcohol/Substance Use Hx Alcohol Use: No (denies) Number of Drinks Daily: 3 Date of Last Use: 06/25/19 - Smoking History Smoking history: Current every day smoker Have you smoked in the past 12 months: Yes Aproximately how many cigarettes per day: 5 - Social History ADL: Independent Occupation: unemployed History of Recent Travel: No Home Medications - Allergies Allergies/Adverse Reactions: Allergies Allergy/AdvReac Type Severity Reaction Status Date / Time No Known Allergies Allergy Verified 10/10/19 15:00 Review of Systems - Review of Systems Constitutional: denies: Chills, Fever Eyes: denies: Recent Change in Vision HENT: denies: Nasal Congestion, Throat Pain Neck: denies: Stiffness, Tenderness Cardiovascular: reports: Shortness of Breath. denies: Chest Pain Respiratory: denies: Cough, Hemoptysis, Wheezing Gastrointestinal: denies: Abdominal Pain, Nausea, Vomiting Genitourinary: denies: Dysuria, Hematuria Neurological: denies: Dizziness, Headache Endocrine: denies: Unexplained Weight Loss Physical Exam Vital Sings: Vital Signs Temperature 97.6 F 10/11/19 06:00 Pulse Rate 94 H 10/11/19 06:00 Respiratory Rate 20 10/11/19 09:00 Blood Pressure 110/85 10/11/19 06:00 O2 Sat by Pulse Oximetry (%) 98 10/11/19 09:00 Constitutional: Yes: Calm Eyes: Yes: Conjunctiva Clear, EOM Intact HENT: Yes: Atraumatic, Normocephalic Neck: Yes: Supple, Trachea Midline Cardiovascular: Yes: Regular Rate and Rhythm Respiratory: Yes: Diminished (distant breath sounds). No: Wheezes ...Clubbing: No Gastrointestinal: Yes: Normal Bowel Sounds, Soft. No: Tenderness Edema: No Neurological: Yes: Alert, Oriented Labs: CBC, BMP 10/11/19 07:03 10/11/19 07:03 Imaging - Results Chest X-ray: Report Reviewed, Image Reviewed Cat Scan: Report Reviewed, Image Reviewed (chronic RUL, RML changes, RLL nodule) Assessment/Plan Mild COPD Exacerbation Lung Nodule - inhaled bronchodilators as needed - O2 to keep SpO2 >90% - outpt f/u of lung nodule - DVT prophylaxis - very low suspicion for COVID-19 Thank you for this consult Tung Up MD
[2019-10-11] MEDS: INSULIN SLIDING SCALE (NOVOLOG) 1 VIAL SQ SCH ×3 (13:26→21:35)
--- NOTE | 2019-10-11 15:38 | PN ---
Physical Exam: SUBJECTIVE: Patient seen and examined OBJECTIVE: Patient is 69 year old male with a significant past medical history of COPD. Patient also reports having right shoulder pain which he states he sustained after being kicked out of [facility] yesterday. Patient denies falls. He is a poor historian and unable to provide full past medical history. History taken from chart and ED signout. Patient complained of body aches, shortness of breath and general malaise. No recent travel, no recent sick contact, no cough. He is being ruled out for possible COVID 19 infection at this time. He will be isolated. He was given Solumedrol 125 in the ED with relief of symptoms. Currently tolerating room air and denies any shortness of breath. Vital Signs Period Temp Pulse Resp BP Sys/Newsome Pulse Ox Last 24 Hr 97.2 F-98.5 F 90-110 18-22 110-130/59-85 98-98 GENERAL: Awake, alert, and fully oriented, in no acute distress. luxembourger speaking primarily HEAD: Normal with no signs of trauma. EYES: Pupils equal, round and reactive to light, extraocular movements intact, sclera anicteric, conjunctiva clear. No lid lag. EARS, NOSE, THROAT: Ears normal, nares patent, oropharynx clear without exudates. Moist mucous membranes. NECK: Normal range of motion, supple without lymphadenopathy, JVD, or masses. LUNGS: diminished, no wheezing, tolerating room air HEART: Regular rate and rhythm ABDOMEN: Soft, nontender, not distended, normoactive bowel sounds MUSCULOSKELETAL: No bony deformities or tenderness. No CVA tenderness. UPPER EXTREMITIES: No peripheral edema. LOWER EXTREMITIES: No peripheral edema. NEUROLOGICAL: Normal speech. Normal gait. PSYCHIATRIC: Cooperative. Good eye contact. Appropriate mood and affect. SKIN: Warm, dry, normal turgor, no rashes or lesions noted, normal capillary refill. Laboratory Results - last 24 hr 10/10/19 10/10/19 10/10/19 14:10 14:10 14:15 WBC RBC Hgb Hct MCV MCH MCHC RDW Plt Count MPV PT with INR 15.10 H INR 1.28 H PTT (Actin FS) Sodium 135 L Potassium 4.3 Chloride 101 Carbon Dioxide 21 Anion Gap 13 BUN 27.7 H Creatinine 0.8 Est GFR (CKD-EPI)AfAm 104.90 Est GFR (CKD-EPI)NonAf 90.51 POC Glucometer Random Glucose 129 H Hemoglobin A1c % Lactic Acid Calcium 9.1 Phosphorus Magnesium Total Bilirubin 1.0 AST 65 H ALT 25 Alkaline Phosphatase 109 Creatine Kinase 1159 H Creatine Kinase Index 1.3 CK-MB (CK-2) 15.5 H Troponin I < 0.02 B-Natriuretic Peptide 63.8 Total Protein 8.2 Albumin 3.5 TSH Blood Type A POSITIVE Antibody Screen Negative 10/10/19 10/11/19 10/11/19 14:15 07:03 07:03 WBC 8.8 RBC 3.65 L Hgb 11.1 L Hct 33.6 L MCV 92.2 MCH 30.3 MCHC 32.9 RDW 13.2 Plt Count 218 MPV 9.0 PT with INR INR PTT (Actin FS) 31.7 Sodium Potassium Chloride Carbon Dioxide Anion Gap BUN Creatinine Est GFR (CKD-EPI)AfAm Est GFR (CKD-EPI)NonAf POC Glucometer Random Glucose Hemoglobin A1c % Lactic Acid 1.7 Calcium Phosphorus Magnesium Total Bilirubin AST ALT Alkaline Phosphatase Creatine Kinase Creatine Kinase Index CK-MB (CK-2) Troponin I B-Natriuretic Peptide Total Protein Albumin TSH Blood Type Antibody Screen 10/11/19 10/11/19 10/11/19 07:03 07:03 11:53 WBC RBC Hgb Hct MCV MCH MCHC RDW Plt Count MPV PT with INR INR PTT (Actin FS) Sodium 134 L Potassium 4.9 Chloride 102 Carbon Dioxide 25 Anion Gap 8 BUN 23.4 H Creatinine 0.7 Est GFR (CKD-EPI)AfAm 110.82 Est GFR (CKD-EPI)NonAf 95.61 POC Glucometer 371 Random Glucose 313 H Hemoglobin A1c % 7.0 H Lactic Acid Calcium 8.2 L Phosphorus 3.0 Magnesium 2.2 Total Bilirubin 1.0 AST 41 H ALT 21 Alkaline Phosphatase 89 Creatine Kinase 557 H Creatine Kinase Index 1.3 CK-MB (CK-2) 7.3 H Troponin I B-Natriuretic Peptide Total Protein 7.1 Albumin 2.9 L TSH 0.53 Blood Type Antibody Screen Active Medications Generic Name Dose Route Start Last Admin Trade Name Freq PRN Reason Stop Dose Admin Albuterol Sulfate 2 puff 10/10/19 20:00 10/11/19 13:25 Ventolin Hfa Inhaler - IH 2 puff RQID NATALIA Administration Folic Acid 1 mg 10/10/19 18:45 10/11/19 09:48 Folic Acid - PO 1 mg DAILY NATALIA Administration Sodium Chloride 1,000 mls @ 75 mls/hr 10/11/19 09:15 10/11/19 10:25 Normal Saline - IV 75 mls/hr ASDIR NATALIA Administration Insulin Aspart 1 vial 10/11/19 11:00 10/11/19 13:26 Novolog Vial Sliding Scale - SQ 10 units ACHS NATALIA Administration Protocol Lidocaine 1 patch 10/10/19 19:00 10/10/19 21:00 Lidoderm Patch - TP 1 patch DAILY@1900 NATALIA Administration Miscellaneous 1 each 10/11/19 07:00 10/11/19 07:00 Lidoderm Patch Removal MC 1 each DAILY@0700 [facility] Administration Oxycodone HCl 5 mg 10/10/19 18:35 10/11/19 05:30 Roxicodone - PO 5 mg Q6H PRN Administration PAIN LEVEL 7 - 10 ASSESSMENT/PLAN: Problem List - Problems (1) COPD exacerbation Assessment/Plan: patient wheezing on presentation to the ED and given solumedrol 125mg once will defer on further steriods at this time as he appears comfortable and is not wheezing tolerating room air will order prn oxygen as needed and scheduled duonebs pulmonary consulted Code(s): J44.1 - CHRONIC OBSTRUCTIVE PULMONARY DISEASE W (ACUTE) EXACERBATION (2) Fx humeral neck Assessment/Plan: for ortho to see place on a sling pain management with oxycodone Code(s): S42.213A - UNSP DISP FX OF SURGICAL NECK OF UNSP HUMERUS, INIT (3) Shortness of breath Assessment/Plan: resolved, tolerating room air Code(s): R06.02 - SHORTNESS OF BREATH (4) Poorly controlled diabetes mellitus Assessment/Plan: hmga1c in a.m. Code(s): E11.65 - TYPE 2 DIABETES MELLITUS WITH HYPERGLYCEMIA (5) Prophylactic measure Assessment/Plan: fen tolerating po monitor electrolytes full code heparin as dvt prophy Code(s): Z29.9 - ENCOUNTER FOR PROPHYLACTIC MEASURES, UNSPECIFIED Visit type - Emergency Visit Emergency Visit: Yes ED Registration Date: 10/10/19 Care time: The patient presented to the Emergency Department on the above date and was hospitalized for further evaluation of their emergent condition. - New Patient This patient is new to me today: No - Critical Care Critical Care patient: No - Discharge Referral Referred to [facility] No
[2019-10-11] MEDS: LIDOCAINE 5% TOPICAL PATCH TP SCH (18:04)
[2019-10-11] MEDS: HEPARIN NA (PORCINE) 5,000 UNITS/ML 1ML VIAL SQ SCH (21:14)
[2019-10-12] MEDS: INSULIN SLIDING SCALE (NOVOLOG) 1 VIAL SQ SCH ×3 (06:27→18:00)
[2019-10-12] MEDS: LIDOCAINE PATCH REMOVAL MC SCH (08:41)
[2019-10-12] MEDS: FOLIC ACID 1 MG TABLET (FP) PO SCH (10:44)
[2019-10-12] MEDS: HEPARIN NA (PORCINE) 5,000 UNITS/ML 1ML VIAL SQ SCH (10:44)
[2019-10-12] MEDS: ALBUTEROL SO4 HFA INHALER IH SCH ×3 (10:44→18:00)
[2019-10-12] MEDS: SODIUM CHLORIDE 1,000 ML IV SCH (10:45)
[2019-10-12] MEDS: oxyCODONE HCL 5 MG TABLET PO PRN (10:45)
--- NOTE | 2019-10-12 11:08 | PN ---
Progress Note (short form) - Note Progress Note: PULMONARY Denies shortness of breath, cough or wheezing. No fevers. Vital Signs Period Temp Pulse Resp BP Sys/Newsome Pulse Ox Last 24 Hr 97.7 F-98.5 F 76-92 18-19 103-111/53-61 100 Gen: NAD at rest Heart: RRR Lung: decreased breath sounds at the bases, no wheezes Abd: soft, nontender Ext: no edema CBC, BMP 10/11/19 07:03 10/11/19 07:03 Active Medications Albuterol Sulfate (Ventolin Hfa Inhaler -) 2 puff IH RQID [facility] Last Admin: 10/12/19 10:44 Dose: 2 puff Documented by: Folic Acid (Folic Acid -) 1 mg PO DAILY [facility] Last Admin: 10/12/19 10:44 Dose: 1 mg Documented by: Heparin Sodium (Porcine) (Heparin -) 5,000 unit SQ BID [facility] Last Admin: 10/12/19 10:44 Dose: 5,000 unit Documented by: Sodium Chloride (Normal Saline -) 1,000 mls @ 75 mls/hr IV ASDIR [facility] Last Admin: 10/12/19 10:45 Dose: 75 mls/hr Documented by: Insulin Aspart (Novolog Vial Sliding Scale -) 1 vial SQ ACHS [facility]; Protocol Last Admin: 10/12/19 06:27 Dose: 4 units Documented by: Lidocaine (Lidoderm Patch -) 1 patch TP DAILY@1900 [facility] Last Admin: 10/11/19 18:04 Dose: 1 patch Documented by: Miscellaneous (Lidoderm Patch Removal) 1 each MC DAILY@0700 [facility] Last Admin: 10/11/19 07:00 Dose: 1 each Documented by: Oxycodone HCl (Roxicodone -) 5 mg PO Q6H PRN PRN Reason: PAIN LEVEL 7 - 10 Last Admin: 10/12/19 10:45 Dose: 5 mg Documented by: A/P Mild COPD Exacerbation Lung Nodule - inhaled bronchodilators as needed - O2 to keep SpO2 >90% - outpt f/u of lung nodule - DVT prophylaxis - very low suspicion for COVID-19 - can d/c home from pulmonary standpoint
--- NOTE | 2019-10-12 12:50 | CON.ORTH ---
Consult Reason for Consultation:: right humerus fx - Past Medical History Pulmonary: Yes: Bronchitis, Pneumonia - Alcohol/Substance Use Hx Alcohol Use: No (denies) Number of Drinks Daily: 3 Date of Last Use: 06/25/19 - Smoking History Smoking history: Current every day smoker Have you smoked in the past 12 months: Yes Aproximately how many cigarettes per day: 5 - Social History ADL: Independent Occupation: unemployed History of Recent Travel: No Home Medications - Allergies Allergies/Adverse Reactions: Allergies Allergy/AdvReac Type Severity Reaction Status Date / Time No Known Allergies Allergy Verified 10/10/19 15:00 Physical Exam for Ortho Vital Signs: Vital Signs Temperature 98.8 F 10/12/19 10:00 Pulse Rate 82 10/12/19 10:00 Respiratory Rate 18 10/12/19 10:00 Blood Pressure 110/62 10/12/19 10:00 O2 Sat by Pulse Oximetry (%) 100 10/12/19 09:00 Labs: CBC, BMP 10/11/19 07:03 10/11/19 07:03 INR, PTT INR 1.28 (0.83-1.09) H 10/10/19 14:10 - Upper Extremity Shoulder: Yes: Right, Limited ROM, Pain, Swelling, Tenderness, Other (nvi) Imaging - Results X-ray: Image Reviewed Assessment/Plan 69 year old male with a significant past medical history of COPD. Patient also reports having right shoulder pain which he states he sustained after being kicked out of [facility] yesterday. Patient denies falls. He is a poor historian and unable to provide full past medical history. History taken from chart and ED signout. Patient complained of body aches, shortness of breath and general malaise. No recent travel, no recent sick contact, no cough. He is being ruled out for possible COVID 19 infection at this time. He will be isolated. a/p right proximal humerus fx- acceptable position No surgical intervention Pt placed in hanging sling HOB to 60 deg or more pain control ok to d/c from ortho pov once medically cleared f/u in 2 weeks time for repeat xrays d/w Dr. Delcid
[2019-10-12 13:19] LABS: BASO % 0.6 % (0-2.0); EOS % 0.8 % (0-4.5); HEMATOCRIT 29.9 % (35.4-49); LYMPH % 17.7 % (8-40); MCH 31.4 pg (25.7-33.7); MCHC 33.4 g/dl (32.0-35.9); MEAN CELL VOLUME 94.2 fl (80-96); MEAN PLT VOLUME 9.1 fl (7.5-11.1); MONO % 6.8 % (3.8-10.2); NEUT % 74.1 % (42.8-82.8); PLATELET COUNT 179 K/MM3 (134-434); RBC 3.17 M/mm3 (4.00-5.60)
[2019-10-12 13:38] LABS: ALBUMIN 2.6 g/dl (3.4-5.0); BILIRUBIN,TOTAL 0.3 mg/dL (0.2-1); BLOOD UREA NITROGEN 14.9 mg/dL (7-18); CALCIUM 7.8 mg/dL (8.5-10.1); CREATININE 0.7 mg/dL (0.55-1.3); MAGNESIUM 1.7 mg/dL (1.8-2.4); POTASSIUM 4.4 mmol/L (3.5-5.1); TOT PROT 6.1 g/dl (6.4-8.2)
[2019-10-12] MEDS ORDERED: MAGNESIUM OXIDE 400 MG TABLET (FP) PO ONE (14:01)
--- NOTE | 2019-10-12 15:34 | DS ---
Physical Exam: SUBJECTIVE: Patient seen and examined at the bedside. has intermittent pain of right shoulder. OBJECTIVE: Patient is 69 year old male with a significant past medical history of COPD. Patient also reports having right shoulder pain which he states he sustained after being kicked out of [facility]. Patient denies falls. He is a poor historian and unable to provide full past medical history. History taken from chart and ED signout. Patient complained of body aches, shortness of breath and general malaise. No recent travel, no recent sick contact, no cough. He is being ruled out for possible COVID 19 infection at this time. However, he is low risk and will be sent home on quarantine until COVID results are back. He has been cleared by pulmonary and orthopedics for discharge. Patient to follow up with Orthopedics. He was given Solumedrol 125 in the ED with relief of symptoms. Currently tole rating room air and denies any shortness of breath. Patient to follow up as an outpatient. Vital Signs Period Temp Pulse Resp BP Sys/Newsome Pulse Ox Last 24 Hr 97.7 F-98.8 F 76-90 18-18 103-111/53-62 100-100 PHYSICAL EXAM GENERAL: Awake, alert, and fully oriented, in no acute distress. albanian speaking primarily HEAD: Normal with no signs of trauma. EYES: Pupils equal, round and reactive to light, extraocular movements intact, sclera anicteric, conjunctiva clear. No lid lag. EARS, NOSE, THROAT: Ears normal, nares patent, oropharynx clear without exudates. Moist mucous membranes. NECK: Normal range of motion, supple without lymphadenopathy, JVD, or masses. LUNGS: diminished, no wheezing, tolerating room air HEART: Regular rate and rhythm ABDOMEN: Soft, nontender, not distended, normoactive bowel sounds MUSCULOSKELETAL: No bony deformities or tenderness. No CVA tenderness. UPPER EXTREMITIES: right shoulder edema s/p humerus fracture, on sling LABS Laboratory Results - last 24 hr 10/11/19 10/11/19 10/12/19 17:33 21:24 06:21 WBC RBC Hgb Hct MCV MCH MCHC RDW Plt Count MPV Absolute Neuts (auto) Neutrophils % Lymphocytes % Monocytes % Eosinophils % Basophils % Nucleated RBC % Sodium Potassium Chloride Carbon Dioxide Anion Gap BUN Creatinine Est GFR (CKD-EPI)AfAm Est GFR (CKD-EPI)NonAf POC Glucometer 281 200 237 Random Glucose Calcium Magnesium Total Bilirubin AST ALT Alkaline Phosphatase Total Protein Albumin 10/12/19 10/12/19 10/12/19 11:57 13:00 13:00 WBC 9.0 RBC 3.17 L Hgb 10.0 L Hct 29.9 L MCV 94.2 MCH 31.4 MCHC 33.4 RDW 13.0 Plt Count 179 MPV 9.1 Absolute Neuts (auto) 6.7 Neutrophils % 74.1 Lymphocytes % 17.7 D Monocytes % 6.8 Eosinophils % 0.8 D Basophils % 0.6 Nucleated RBC % 0 Sodium 136 Potassium 4.4 Chloride 102 Carbon Dioxide 29 Anion Gap 5 L BUN 14.9 Creatinine 0.7 Est GFR (CKD-EPI)AfAm 110.82 Est GFR (CKD-EPI)NonAf 95.61 POC Glucometer 216 Random Glucose 289 H Calcium 7.8 L Magnesium 1.7 L Total Bilirubin 0.3 AST 47 H ALT 38 Alkaline Phosphatase 79 Total Protein 6.1 L Albumin 2.6 L HOSPITAL COURSE: Date of Admission:10/10/19 Date of Discharge: 10/12/19 Discharge Summary Problems reviewed: Yes Reason For Visit: CHRONIC COPD INTIAL EVAL, FRACTURE OF NECK HUMERUS Current Active Problems COPD exacerbation (Acute) Fx humeral neck (Acute) Shortness of breath (Acute) Condition: Good - Instructions Diet, Activity, Other Instructions: Mr Diane: Please follow up with Dr. Amador Winters/Dr Delcid for your right proximal humerus fracture. Continue to wear the sling Pain control with Ibuprophen 800mg every 6 hours and Neurontin 100mg once per day Please follow up with online banking specialist for repeat xray of the right shoulder Thank you for allowing us to care for you You are being ruled out for COVID. Please follow the discharge instructions for COVID as made out in your discharge instructions. Your blood sugar was elevated and we are starting you on a medication called M etformin. Please follow up with your primary care doctor for follow up. continue to isolate/quarnatine yourself until your COVID 19 results are back PLease call [facility] : [facility] CORONAVIRUS HOTLINE: What are the most common symptoms of Covid-19? - Muscle aches - Loss of energy and appetite - Persistent cough - Low grade fever lasting 24 hours or more, causing the person to feel feverish with chills If I have Covid-19, how long can I expect to feel sick? - Typically one week. - The majority of individuals feel better in 5 to 7 days with rest and [id number] cold and flu medications. How does illness progress in cases of Covid-19? - A few individuals progress to pneumonia (infection of the lungs) and/or pneumonitis (inflammation of the lungs). - Pneumonia/pneumonitis causes shortness of breath, worsening cough and in most cases, fever. - Individuals with the symptoms of Covid-19 who develop a worsening cough and shortness of breath must seek care quickly. Referrals: [facility] [Provider Group] All Delcid MD [Staff Physician] - 1 Week Disposition: HOME - Home Medications Comprehensive Discharge Medication List: Ambulatory Orders Folic Acid 1 mg PO DAILY #30 tablet 10/12/19 Folic Acid - 1 mg PO DAILY #60 tablet 10/12/19 Gabapentin [Neurontin] 100 mg PO DAILY #30 capsule 10/12/19 Ibuprofen 800 mg PO TID #90 tablet 10/12/19 Metformin HCl [Glucophage] 500 mg PO DAILY #30 tablet 10/12/19 Problem List - Problems (1) Suspected 2019 novel coronavirus infection Assessment/Plan: covid 19 pending will send home on quarantine patient tolerating room air, feels generally well and has been cleared by pulmonary for discharge Code(s): R68.89 - OTHER GENERAL SYMPTOMS AND SIGNS (2) COPD exacerbation Assessment/Plan: patient wheezing on presentation to the ED and given solumedrol 125mg once will defer on further steriods at this time as he appears comfortable and is not wheezing tolerating room air will order prn oxygen as needed and scheduled duonebs pulmonary consulted Code(s): J44.1 - CHRONIC OBSTRUCTIVE PULMONARY DISEASE W (ACUTE) EXACERBATION (3) Fx humeral neck Assessment/Plan: seen by orthopedics. recommend to keep arm in sling and follow up in 1 week for repeat imaging will no send home with narcotic medications as patient has history of etoh abuse and may use alcohol with narcotics control pain on ibuprohen and neurontin Code(s): S42.213A - UNSP DISP FX OF SURGICAL NECK OF UNSP HUMERUS, INIT (4) Shortness of breath Assessment/Plan: resolved, tolerating room air Code(s): R06.02 - SHORTNESS OF BREATH (5) Poorly controlled diabetes mellitus Assessment/Plan: hmga1c 7.0, elevated bgms. will d/c on metformin with outpatient follow up. Code(s): E11.65 - TYPE 2 DIABETES MELLITUS WITH HYPERGLYCEMIA (6) Prophylactic measure Assessment/Plan: discharge home Code(s): Z29.9 - ENCOUNTER FOR PROPHYLACTIC MEASURES, UNSPECIFIED - Discharge Referral Referred to [facility] No
[2019-10-12 19:37] VITALS: BP 116/58; PULSE 74; TEMP 98.1
== END 2019-10-12 19:00 | disposition home or self-care (01) | DRG 191 ==
LOC: JER 14:39 → JERBED 16:29 → J4S 19:03
PROVIDERS: ADMIT Internal Medicine; ATTEND Nurse Practitioner Family
DX: J44.1 Chronic obstructive pulmonary disease with (acute) exacerbation (principal); S42.201A Unspecified fracture of upper end of right humerus, initial encounter for closed fracture; E11.65 Type 2 diabetes mellitus with hyperglycemia; R91.1 Solitary pulmonary nodule; F17.210 Nicotine dependence, cigarettes, uncomplicated; X58.XXXA Exposure to other specified factors, initial encounter; Y93.89 Activity, other specified; Y92.89 Other specified places as the place of occurrence of the external cause; Y99.8 Other external cause status
CPT/HCPCS: 36415; 70450-TC; 71045-TC-FY; 71250-TC; 72125-TC; 73030-TC-RT-FY; 80053; 82550; 82553; 82962; 83036; 83605; 83735; 83880; 84100; 84443; 84484; 85025; 85027; 85610; 85730; 86850; 86900; 86901; 87040; 87798; 87804; 99285-25; J0131; J1644; J7030

== ENCOUNTER 2020-01-13 17:33 | Inpatient (IN) | payer OTHER ==
--- NOTE | 2020-01-13 18:09 | PDOC ---
History of Present Illness - General Stated Complaint: FALL Time Seen by Provider: 01/13/20 18:08 History Source: Patient Exam Limitations: No Limitations - History of Present Illness Initial Comments: 69 yo M with a hx of ETOH abuse (last drink today; drank 1 bottle of hard liquor), CVA with no residual deficits, hx of hypotension, and COPD presents to the emergency department s/p suspected syncopal episode. Per EMS, the patient was noted to be lying down the sidewalk. The patient states he was drinking today and denies falling, instead deciding to lay down on the ground. He was unsure if he had passed out, but stated he felt very hot. The patient endorses having pain in the right shoulder that is acute on chronic, but is unsure of when it became worse. The patient endorses having chest pain for the past 2 weeks. Denies the following: fevers, chills, nausea, vomiting, visual disturbances, FND, back pain, abdominal pain, ears/nose/throat pain, dysuria, hematuria, diarrhea, and leg swelling. Endorses not drinking enough water. Past History - Medical History Allergies/Adverse Reactions: Allergies Allergy/AdvReac Type Severity Reaction Status Date / Time No Known Drug Allergies Allergy Verified 01/25/20 23:30 Home Medications: Ambulatory Orders Budesonide/Formeterol Fumarate [SYMBICORT 160/4.5mcg -] 2 inh IH BID 01/14/20 Sitagliptin Phos/Metformin HCl [Janumet 50-500 mg Tablet] 50 - 500 mg PO BID 01/14/20 COPD: No Psychiatric Problems: Yes (ETOH dependency) - Psycho-Social/Smoking History Smoking History: Current every day smoker Have you smoked in the past 12 months: Yes Number of Cigarettes Smoked Daily: 10 Review of Systems - Review of Systems Able to Perform ROS?: Yes Is the patient limited Portuguese proficient: No Constitutional: No: Chills, Diaphoresis, Fever, Weakness HEENTM: No: Eye Pain, Ear Pain, Nose Pain, Throat Pain Respiratory: No: Cough, Shortness of Breath, Hemoptysis Cardiac (ROS): Yes: Chest Pain, Syncope. No: Lightheadedness ABD/GI: Yes: Poor Fluid Intake. No: Constipated, Diarrhea, Nausea, Rectal Bleeding, Vomiting, Tarry Stools : No: Dysuria, Hematuria Musculoskeletal: Yes: Joint Pain (shoulder pain). No: Back Pain Integumentary: No: Bruising, Rash Neurological: No: Headache, Numbness, Tingling, Tremors Psychiatric: No: Change in Appetite Endocrine: No: Unexplained Weight Loss Hematologic/Lymphatic: No: Anemia *Physical Exam - Physical Exam General Appearance: Yes: Intoxicated, Cachetic. No: Appropriately Dressed, Apparent Distress HEENT: positive: EOMI, SAM, Normal Voice, Symmetrical, Hearing Grossly Normal, Other (no trauma noted on the head. no contusions felt). negative: Pharynx Normal (dry mucous membranes), Pale Conjunctivae, Scleral Icterus (R), Scleral Icterus (L), Muffled/Hoarse voice, Pharyngeal Erythema, Tonsillar Exudate, Tonsillar Erythema, Excessive drooling Neck: positive: Tender (right paracervical spine tenderness at the C6-7 region), Trachea midline, Supple. negative: Lymphadenopathy (R), Lymphadenopathy (L) Respiratory/Chest: positive: Lungs Clear, Normal Breath Sounds. negative: Chest Tender, Respiratory Distress, Accessory Muscle Use, Crackles, Rales, Rhonchi, Stridor, Wheezing Cardiovascular: positive: Regular Rhythm, Regular Rate, S1, S2. negative: Systolic Murmur Gastrointestinal/Abdominal: positive: Normal Bowel Sounds, Flat, Soft. negative: Tender, Distended, Guarding, Rebound, Tenderness Lymphatic: negative: Adenopathy Musculoskeletal: positive: Normal Inspection. negative: CVA Tenderness, Vertebral Tenderness Extremity: positive: Normal Capillary Refill, Normal Inspection, Normal Range of Motion. negative: Tender, Swelling, Calf Tenderness Integumentary: positive: Normal Color, Dry, Warm. negative: Swelling, Ecchymosis Neurologic: positive: Fully Oriented, Alert, Normal Mood/Affect ED Treatment Course - LABORATORY CBC & Chemistry Diagram: 01/17/20 06:35 01/17/20 06:35 Medical Decision Making - Medical Decision Making 01/13/20 22:19 69 yo M with a hx of ETOH abuse (last drink today; drank 1 bottle of hard liquor), CVA with no residual deficits, hx of hypotension, and COPD presents to the emergency department s/p suspected syncopal episode. Initial vitas: Initial Vital Signs Temp Pulse Resp BP Pulse Ox 97.9 F 95 H 16 91/56 L 97 01/13/20 17:45 01/13/20 17:45 01/13/20 17:45 01/13/20 17:45 01/13/20 17:45 Work up: patient presents to the emergency department intoxicated with dehydration suspected syncope. will obtain head ct to rule out intracranial process Will obtain labs for ddx: cardiac vs hypovolemia vs neurogenic vs electrolyte disturbance Laboratory Tests 01/13/20 01/13/20 01/13/20 18:15 18:30 18:30 WBC 8.2 RBC 4.25 Hgb 12.9 Hct 39.7 MCV 93.5 MCH 30.4 MCHC 32.5 RDW 13.2 Plt Count 265 MPV 8.3 Absolute Neuts (auto) 5.7 Neutrophils % 68.9 Lymphocytes % 17.0 D Monocytes % 7.4 Eosinophils % 5.9 H Basophils % 0.8 Nucleated RBC % 0 PT with INR Cancelled INR Cancelled Sodium Potassium Chloride Carbon Dioxide Anion Gap BUN Creatinine Est GFR (CKD-EPI)AfAm Est GFR (CKD-EPI)NonAf POC Glucometer 193 Random Glucose Calcium Phosphorus Magnesium Total Bilirubin AST ALT Alkaline Phosphatase Creatine Kinase Troponin I Total Protein Albumin Alcohol, Quantitative 01/13/20 18:30 WBC RBC Hgb Hct MCV MCH MCHC RDW Plt Count MPV Absolute Neuts (auto) Neutrophils % Lymphocytes % Monocytes % Eosinophils % Basophils % Nucleated RBC % PT with INR INR Sodium 140 Potassium 3.8 Chloride 105 Carbon Dioxide 25 Anion Gap 10 BUN 17.9 Creatinine 0.7 Est GFR (CKD-EPI)AfAm 110.82 Est GFR (CKD-EPI)NonAf 95.61 POC Glucometer Random Glucose 198 H Calcium 8.7 Phosphorus 3.8 Magnesium 2.1 Total Bilirubin 0.4 AST 15 ALT 16 Alkaline Phosphatase 102 Creatine Kinase 90 Troponin I < 0.02 Total Protein 7.5 Albumin 3.2 L Alcohol, Quantitative 118.9 H patient had a 118.9 alcohol levels troponin is negative spoke to Dr. Caal in regards to CXR who states the superior pneumomediastinum tract is minimal and could be related to possible self injection in the right side of the neck. Possible that the patient had multiple vomiting episodes or recent trauma. Of note, there is a 1.7x1.1 cm moderately sclerotic lesion within the left lateral third of the t3 verterbral body possibly presenting a hemangioma. a chest CT was ordered due to the tract seen on the cervical spine CT Chest CT shows several nonspecific mildly enlarged LN. No acute infiltrate noted. Extensive opacity seen within the right pulmonary apex which appears chronic in nature with ipsilateral mediastinal deviation. head ct does not show an acute intracranial process. right shoulder xray shows a healing humeral neck fracture with moderate degenerative arthritis. no acute changes. EKG: NSR without ST elevation or depression. RBBB incomplete noted in V1. Left anterior fasicular block noted. Patient to be admitted for unwitnessed syncope in the setting of hypotension with alcohol intoxication with questionable trauma to the neck given the pneumomediastinum noted. Discharge - Discharge Information Problems reviewed: Yes Clinical Impression/Diagnosis: Elevated ETOH level Qualifiers: Blood alcohol level: level not specified Qualified Code(s): R78.0 - Finding of alcohol in blood Shoulder fracture, right Qualifiers: Encounter type: subsequent encounter Fracture type: closed Fracture healing: with malunion Qualified Code(s): S42.91XP - Fracture of right shoulder girdle, part unspecified, subsequent encounter for fracture with malunion - Follow up/Referral - Patient Discharge Instructions - Post Discharge Activity
[2020-01-13] MEDS ORDERED: SODIUM CHLORIDE 1,000 ML IV STA (18:22)
[2020-01-13] MEDS ORDERED: ACETAMINOPHEN 1000 MG/100 ML VIAL (NON FORMULARY) IVPB ONE ×2 (18:22→23:49)
--- NOTE | 2020-01-13 18:33 | PDOC ---
Documentation entered by Sunni Ortiz SCRIBE, acting as scribe for Becky Peraza MD. Becky Peraza MD: This documentation has been prepared by the Angel mcwilliams Brenda, SCRIBE, under my direction and personally reviewed by me in its entirety. I confirm that the documentation accurately reflects all work, treatment, procedures, and medical decision making performed by me. Attending Attestation - Resident Resident Name: Gian Castillo - ED Attending Attestation I have performed the following: I have examined & evaluated the patient, The case was reviewed & discussed with the resident, I agree w/resident's findings & plan, Exceptions are as noted - HPI HPI: 01/13/20 18:16 The patient is a 69 year old male non domiciled , with a significant PMH of who presents to the emergency department [facility] after being found by bystanders on the street with suspicion for alcohol intoxication. The patient currently complains of chest pain and a chronic right shoulder pain. The patient denies shortness of breath, headache and dizziness. Denies fever, chills, nausea, vomiting, diarrhea and constipation. Denies dysuria, frequency, urgency and hematuria. Allergies: NKA Social history: Alcohol use reported by patient. - Physicial Exam PE: 01/13/20 18:22 GENERAL: (+) Thin (+) Disheveled (+) unkept No apparent distress. HEENT: Normocephalic, atraumatic. PERRL, EOM intact. CARDIOVASCULAR: Normal S1, S2. Regular rate and rhythm. PULMONARY: Clear to auscultation bilaterally. ABDOMEN: Soft, non-distended, non-tender. EXTREMITIES: +++ painful right shoulder SKIN: Warm, dry. No rash NEUROLOGICAL: No focal neurological deficits. 01/13/20 21:44 - Medical Decision Making 01/13/20 18:43 -thin ,intoxicated ,homeless 69 yo male was found on the ground and bystander called 911. -he was seen here November , Today's ekg unchanged from the one done last month 01/13/20 21:45 pt was seen November and found to have an impacted right humerus fracture and referred to orthopedics 01/13/20 21:46 pt is SBP now 81 and pt has c/o of dizziness 01/13/20 22:24 ct scan head no acute intracranial pathology ct scan c spine no fracture labs reviewed [id number], [id number] 01/13/20 22:40 admit syncope/hypotension,rt subacute humeral fracture,etoh intox,,diabetes Discharge - Discharge Information Problems reviewed: Yes Clinical Impression/Diagnosis: Shoulder fracture, right Qualifiers: Encounter type: subsequent encounter Fracture type: closed Fracture healing: with malunion Qualified Code(s): S42.91XP - Fracture of right shoulder girdle, part unspecified, subsequent encounter for fracture with malunion Elevated ETOH level Qualifiers: Blood alcohol level: level not specified Qualified Code(s): R78.0 - Finding of alcohol in blood - Follow up/Referral - Patient Discharge Instructions - Post Discharge Activity
[2020-01-13] MEDS ORDERED: ACETAMINOPHEN INJECTION 100 ML IVPB ONE (18:45)
[2020-01-13 18:59] LABS: BASO % 0.8 % (0-2.0); EOS % 5.9 % (0-4.5); HEMATOCRIT 39.7 % (35.4-49); HEMOGLOBIN 12.9 GM/dL (11.7-16.9); MCH 30.4 pg (25.7-33.7); MCHC 32.5 g/dl (32.0-35.9); MEAN CELL VOLUME 93.5 fl (80-96); MEAN PLT VOLUME 8.3 fl (7.5-11.1); MONO % 7.4 % (3.8-10.2); NEUT % 68.9 % (42.8-82.8); PLATELET COUNT 265 K/MM3 (134-434); RBC 4.25 M/mm3 (4.00-5.60); RDW 13.2 % (11.9-15.9); WHITE BLOOD COUNT 8.2 K/mm3 (4.0-10.0)
[2020-01-13 19:45] LABS: ALBUMIN 3.2 g/dl (3.4-5.0); ALK PHOS 102 U/L (45-117); ANION GAP 10 MMOL/L (8-16); BILIRUBIN,TOTAL 0.4 mg/dL (0.2-1); BLOOD UREA NITROGEN 17.9 mg/dL (7-18); CALCIUM 8.7 mg/dL (8.5-10.1); CHLORIDE 105 mmol/L (98-107); CO2 25 mmol/L (21-32); CREATININE 0.7 mg/dL (0.55-1.3); GLUCOSE,RANDOM 198 mg/dL (74-106); MAGNESIUM 2.1 mg/dL (1.8-2.4); PHOSPHOROUS 3.8 mg/dL (2.5-4.9); POTASSIUM 3.8 mmol/L (3.5-5.1); SGOT/AST 15 U/L (15-37); SGPT/ALT 16 U/L (13-61); SODIUM 140 mmol/L (136-145); TOT PROT 7.5 g/dl (6.4-8.2)
[2020-01-13] MEDS ORDERED: LACTATED RINGERS SOLUTION 1000 ML INFUS.BAG IV ONE (21:38)
--- NOTE | 2020-01-13 23:04 | PN ---
Teaching Attending Note Name of Resident: Rowena Mcnamara ATTENDING PHYSICIAN STATEMENT I saw and evaluated the patient. I reviewed the resident's note and discussed the case with the resident. I agree with the resident's findings and plan as documented. SUBJECTIVE: Patient is a 69 year old undomiciled man with a PMH of Alcohol abuse (last drink today; drank 1 bottle of hard liquor), Appendectomy, Right leg surgery with shannan placement, Tobacco use, NIDDM (nonadherent with medications), CVA with no residual deficits, Hypotension, Right humerus fracture (?September) and COPD presents to the ER after suspected syncopal episode. Per EMS, the patient was noted to be lying down on the sidewalk and some bystanders called EMS. Patient states he was drinking today and denies falling, instead deciding to lay down on the ground. He was unsure if he had passed out, but stated he felt very hot. Reports pain in the right shoulder that is acute on chronic, but is unsure of when it became worse. Also has had chest pain for the past 2 weeks. Patient denies fevers, chills, nausea, vomiting, visual disturbances, SOB, back pain, abdominal pain, dysuria, hematuria, diarrhea or leg swelling. Endorses not drinking enough water. Denies tobacco or illicit drug use. No sick contacts or recent travels. Family history of alcoholism in father and DM in mother. OBJECTIVE: Alert and disheveled Vital Signs Period Temp Pulse Resp BP Sys/Newsome Pulse Ox Last 24 Hr 97.9 F 95 16 91/56 97 HEENT: No Jaundice, eye redness or discharge, PERRLA, EOMI. Normocephalic, atraumatic. External ears are normal and hearing is grossly intact. No nasal discharge. Neck: Supple, nontender. No palpable adenopathy or thyromegaly. No JVD Chest: Good effort. Clear to auscultation and percussion. Heart: Regular. No S3, rub or murmur Abdomen: Not distended, soft, nontender and no HSM. No rebound or guarding. Normal bowel sounds. Ext: Peripheral pulses intact. No leg edema. Tenderness and limited ROM in right shoulder. Skin: Warm and dry. No petechiae, rash or ecchymosis. Neuro: Alert. Oriented x3. Combative. No asterexis or tremors; CN 2-12 grossly intact. Sensation grossly intact in all four extremities and DTR are symmetric. Psych: Appropriate mood and affect. Good insight. Home Medications Medication Instructions Recorded NK [No Known Home Medication] 11/30/19 Abnormal Lab Results 01/13/20 01/13/20 18:30 18:30 Eosinophils % 5.9 H Random Glucose 198 H Albumin 3.2 L Alcohol, Quantitative 118.9 H Current Medications Generic Name Dose Route Start Last Admin Trade Name Ludin PRN Reason Stop Dose Admin Acetaminophen 650 mg 01/14/20 00:46 Tylenol - PO Q6H PRN Fever Or Pain Albuterol/Ipratropium 1 amp 01/14/20 00:47 Duoneb - NEB Q6H PRN SHORTNESS OF BREATH Enoxaparin Sodium 40 mg 01/14/20 10:00 Lovenox - SQ DAILY NATALIA Folic Acid 1 mg 01/14/20 10:00 Folic Acid - PO DAILY NATALIA Folic Acid 1 mg/ Thiamine HCl 1,000 mls @ 125 mls/hr 01/14/20 00:45 100 mg/ Multivitamins/Minerals IVPB 01/14/20 08:44 10 ml/ Sodium Chloride ONCE ONE Insulin Aspart 1 vial 01/14/20 07:00 Novolog Vial Sliding Scale - SQ ACHS NATALIA Protocol Multivitamins/Minerals/Vitamin C 1 tab 01/14/20 10:00 Tab-A-Vit - PO DAILY NATALIA Thiamine HCl 100 mg 01/14/20 10:00 Vitamin B1 - PO DAILY [facility] ASSESSMENT AND PLAN: 1. Alcohol intoxication/?Syncope/Chronic right shoulder fracture - No clear evidence for syncope - may just have been intoxicated. No acute abnormality on head CT or C-spine CT. Chest CT with out contrast shows right humeral neck fracture, enlarged mediastinal lymphnodes, chronic opacities in the upper lobes, subpleural reticulation in the upper lobes and right middle lobe. CXR shows upper lobe opacities (R>L), increase interstitial markings in the RML, and ipsilateral trachea and mediastinal deviation. Will consult Pulmonary and Ortho. Will treat with IV Banana bag, thiamine and folic acid. Implement [facility] librium alcohol withdrawal protocol and do neurochecks. Implement seizure, fall and aspiration precautions. Monitor and replete electrolytes (Ca,Mg,K,P). Counseled patient about abstaining from alcohol. Will consult store protection specialist and refer to alcohol detox upon discharge. Will consult wet room worker for assistance with his living situation. Viral testing for COVID-19 ordered and patient placed on airborne, droplet and contact isolation. EKG shows NSR at 97/minute, biatrial enlargement, LAFB and QTc [address]-T wave changes. Will continue comprehensive care for all of patients comorbid conditions. 2. DM Check HbA1c. Implement sliding scale insulin regimen. Provide comprehensive diabetes care with patient teaching and counseling about the importance of adherence to prescribed diabetes regimen, euglycemia, eye care and foot care. Start Metformin before discharge. 3. Tobacco Use Counseled on risks associated with tobacco use. We will provide patient all the necessary assistance to facilitate smoking cessation and prescribe Nicotine patch. 4. Hypoalbuminemia - Possibly due to combined effects of malnutrition and inflammation associated with comorbid conditions. Will ensure adequate dietary protein intake and also consult maori liaison adviser. Urinalysis pending. 5. DVT prophylaxis - Lovenox 40 mg SQ q 24 hours. 6. Advance directives - Full code
[2020-01-13] MEDS ORDERED: ACETAMINOPHEN 325 MG TABLET (FP) PO ONE (23:55)
[2020-01-13] MEDS ORDERED: ACETAMINOPHEN 325 MG TABLET (FP) ONE (23:57)
--- NOTE | 2020-01-14 00:42 | HP ---
CHIEF COMPLAINT: Chest Pain PCP: HISTORY OF PRESENT ILLNESS: 69 y/o M PMHx of COPD (unclear if on Home O2), CVA (no residual deficits), EtOH use disorder, DM, Right proximal Humerus Fx presents with EtOH intoxication and Chest pain. Patient says he woke in his usual state of health this AM. He completed his errands for the day and while sitting on the ground waiting for the bus, he says he fell asleep. No preceeding symptoms including lightheadedness, dizziness or chest pain however patient did feel hot. The next memory he is able to recall is being in the ambulance on his way to [facility]. Patient now mentions of having chest pain described as 5/10 over his left chest, nonreproducible, that comes and goes, without radiation for the past 2 weeks. The pain occurred while at rest and improves with tylenol. At this point in the interview, patient became extremely agitated and abruptly refused to answer any further questions during my interview thus the majority of the HPI is obtained from chart review. As per chart review, patients last drink was today and he consumed 1 bottle of liquor. ER course was notable for: (1) 1L LR, 1L NS, Ofirmev (2) (3) Recent Travel: Refuses to answer PAST MEDICAL HISTORY: As per HPI PAST SURGICAL HISTORY: Appendectomy RLE Repair with Rods Social History: Smokin.5-1 ppd (as per chart review) Alcohol: Unable to quantify but last drink 1 bottle today Drugs: Denies Allergies No Known Drug Allergies Allergy (Verified 01/13/20 18:20) HOME MEDICATIONS: Home Medications Medication Instructions Recorded NK [No Known Home Medication] 11/30/19 REVIEW OF SYSTEMS Please refer to ED Note for ROS as patient refused to answer questions during my interview. PHYSICAL EXAMINATION Vital Signs - 24 hr 01/13/20 17:45 Temperature 97.9 F Pulse Rate 95 H Respiratory 16 Rate Blood Pressure 91/56 L O2 Sat by Pulse 97 Oximetry (%) GENERAL: Slurring speech, Disheveled HEAD: Cachectic appearing, Mild temporal wasting PSYCHIATRIC: Agitated Exam is limited as patient refused physical examination Laboratory Results - last 24 hr 01/13/20 01/13/20 01/13/20 18:15 18:30 18:30 WBC 8.2 RBC 4.25 Hgb 12.9 Hct 39.7 MCV 93.5 MCH 30.4 MCHC 32.5 RDW 13.2 Plt Count 265 MPV 8.3 Absolute Neuts (auto) 5.7 Neutrophils % 68.9 Lymphocytes % 17.0 D Monocytes % 7.4 Eosinophils % 5.9 H Basophils % 0.8 Nucleated RBC % 0 PT with INR Cancelled INR Cancelled Sodium Potassium Chloride Carbon Dioxide Anion Gap BUN Creatinine Est GFR (CKD-EPI)AfAm Est GFR (CKD-EPI)NonAf POC Glucometer 193 Random Glucose Calcium Phosphorus Magnesium Total Bilirubin AST ALT Alkaline Phosphatase Creatine Kinase Troponin I Total Protein Albumin Alcohol, Quantitative 01/13/20 18:30 WBC RBC Hgb Hct MCV MCH MCHC RDW Plt Count MPV Absolute Neuts (auto) Neutrophils % Lymphocytes % Monocytes % Eosinophils % Basophils % Nucleated RBC % PT with INR INR Sodium 140 Potassium 3.8 Chloride 105 Carbon Dioxide 25 Anion Gap 10 BUN 17.9 Creatinine 0.7 Est GFR (CKD-EPI)AfAm 110.82 Est GFR (CKD-EPI)NonAf 95.61 POC Glucometer Random Glucose 198 H Calcium 8.7 Phosphorus 3.8 Magnesium 2.1 Total Bilirubin 0.4 AST 15 ALT 16 Alkaline Phosphatase 102 Creatine Kinase 90 Troponin I < 0.02 Total Protein 7.5 Albumin 3.2 L Alcohol, Quantitative 118.9 H ASSESSMENT/PLAN: 69 y/o M PMHx of COPD (unclear if on Home O2), CVA (no residual deficits), EtOH use disorder, DM, Right proximal Humerus Fx presents with EtOH intoxication and Chest pain. #EtOH Intoxication -In the setting of EtOH use disorder, EtOH level 118, CT Head/C-Spine negative for fracture -Given 2L IVF in ED; Start Banana bag -MVI/Thiamine/Folate -Check PT and calculate Discriminant function -Can begin Librium protocol once patient is sober and able to calculate CIWA (Currently patient refuses CIWA Questionnaire) -Fall/Seizure/Dysphagia Precautions, HOB elevated, neurochecks -Consider Detox consult #Chest Pain -Unclear etiology as patient refuses to participate in hx/examination however will need to r/o ACS -Trop < 0.02 x 1, Trend Trops -EKG: NSR, Biatrial Enlargement, LAFB, VR 97, QTc 454 -check TSH, A1c, Lipid Panel, Echo -Tele #Right Proximal Humerus Fx -After a fall as per prior hx. Ortho previously recommended no surgical intervention however patient has not followed up outpatient with ortho since for repeat imaging -Shoulder XRay pending offical read -Ortho (Dr. Delcid) consulted -Analgesia #Enlarged Mediastinal LN -In the setting of current tobacco use with hx of COPD, TB Ruled out previously (AFB Neg x 2) -CT Chest reveals chronic opacities in the upper lobes. CXR reveals upper lobe opacities and mediastinal deviation. Lung nodules have been noted on prior imaging -Inhaled Bronchodilators -Nicoderm patch -Supplemental O2 to maintain spo2 88-92% -Consult Pulmonology -Will likely need out patient PFTs #Severe Protien calorie malnutrition -BMI 17.2, Albumin 3.2, Chronic EtOH use disorder -Dietary consult -Supplemental nutrition (Glucerna) #IDDM -ISS BGMs ACHS #FEN -Banana bag -Replete Lytes PRN -Diabetic Diet #PPx -DVT: Lovenox Dispo: Admit to Tele Visit type - Emergency Visit Emergency Visit: Yes ED Registration Date: 01/13/20 Care time: The patient presented to the Emergency Department on the above date and was hospitalized for further evaluation of their emergent condition. - New Patient This patient is new to me today: Yes Date on this admission: 01/14/20 - Critical Care Critical Care patient: No ATTENDING PHYSICIAN STATEMENT I saw and evaluated the patient. I reviewed the resident's note and discussed the case with the resident. I agree with the resident's findings and plan as documented. SUBJECTIVE: OBJECTIVE: ASSESSMENT AND PLAN:
[2020-01-14] MEDS ORDERED: FOLIC ACID INJECTION - 1 MG, THIAMINE HCL 100 MG, MULTIVIT INJECTION ADULT 10 ML in SOD... IVPB ONE (00:45)
[2020-01-14] MEDS ORDERED: ALBUTEROL SO4 2.5/IPRATROPIUM 0.5 INH SOL 3 ML VIAL.NEB. NEB PRN (00:47)
[2020-01-14 06:49] LABS: BASO % 0.8 % (0-2.0); EOS % 7.1 % (0-4.5); HEMOGLOBIN 12.1 GM/dL (11.7-16.9); LYMPH % 22.2 % (8-40); MCHC 31.9 g/dl (32.0-35.9); MEAN PLT VOLUME 8.6 fl (7.5-11.1); MONO % 10.8 % (3.8-10.2); NEUT % 59.1 % (42.8-82.8); PLATELET COUNT 219 K/MM3 (134-434); RBC 4.04 M/mm3 (4.00-5.60); RDW 12.5 % (11.9-15.9); WHITE BLOOD COUNT 7.5 K/mm3 (4.0-10.0)
[2020-01-14 06:57] LABS: INR 1.28 (0.83-1.09); PROTHROMBIN TIME (PATIENT) 15.1 SEC (9.7-13.0)
[2020-01-14 07:20] LABS: ALBUMIN 2.7 g/dl (3.4-5.0); BILIRUBIN,TOTAL 0.4 mg/dL (0.2-1); BLOOD UREA NITROGEN 15.3 mg/dL (7-18); CALCIUM 8.2 mg/dL (8.5-10.1); CREATININE 0.6 mg/dL (0.55-1.3); PHOSPHOROUS 3.5 mg/dL (2.5-4.9); POTASSIUM 4.3 mmol/L (3.5-5.1); TOT PROT 6.4 g/dl (6.4-8.2)
[2020-01-14] MEDS ORDERED: chlordiazePOXIDE HCL 25 MG CAPSULE PO ONE (07:48)
[2020-01-14] MEDS: INSULIN SLIDING SCALE (NOVOLOG) 1 VIAL SQ SCH ×4 (07:55→22:03)
[2020-01-14] MEDS ORDERED: MULTIVITAMINS (DAILY MVI) TABLET (FP) ONE (08:47)
[2020-01-14] MEDS ORDERED: THIAMINE HCL 100 MG TABLET (FP) ONE (08:47)
[2020-01-14] MEDS ORDERED: FOLIC ACID 1 MG TABLET (FP) ONE (08:47)
[2020-01-14] MEDS ORDERED: ENOXAPARIN NA (PORCINE) 40 MG/0.4 ML DISP.SYRIN SQ ONE (08:48)
[2020-01-14] MEDS ORDERED: PT OWN MED DRAWER 7, Y5N ONE (08:48)
[2020-01-14] MEDS ORDERED: chlordiazePOXIDE HCL 25 MG CAPSULE ONE (09:35)
[2020-01-14] MEDS: THIAMINE HCL 100 MG TABLET (FP) PO SCH (09:38)
[2020-01-14] MEDS: FOLIC ACID 1 MG TABLET (FP) PO SCH (09:38)
[2020-01-14] MEDS: ENOXAPARIN NA (PORCINE) 40 MG/0.4 ML DISP.SYRIN SQ SCH (09:38)
[2020-01-14] MEDS: MULTIVITAMINS (DAILY MVI) TABLET (FP) PO SCH (09:38)
[2020-01-14] MEDS: NICOTINE 14 MG/24 HOURS TOPICAL PATCH TD SCH (09:39)
--- NOTE | 2020-01-14 09:39 | CONSULT ---
Consult - text type - Consultation Consultation Note: full consult dictated imp: nonunion r prox humerus fx - no pain plan: nothing to do. DC and f/u prn
[2020-01-14] MEDS: LACTATED RINGERS SOLUTION 1,000 ML/1,000 ML INFUS.BAG IV SCH (10:30)
[2020-01-14] MEDS ORDERED: INSULIN SLIDING SCALE (NOVOLOG) 1 VIAL SQ ONE (10:32)
--- NOTE | 2020-01-14 10:46 | CONS ---
DATE OF CONSULTATION: 01/14/2020 ORTHOPEDIC CONSULTATION/[facility] HISTORY OF PRESENT ILLNESS: Patient is a 69-year-old homeless alcoholic, presented to the emergency room with EtOH on board, complaining of some vague pain in his right shoulder and leg. I examined him hours later when he had awoken from his sleep from the alcohol and questioned him. He said that his shoulder has been bothering him for some time, but it is getting somewhat better. His leg is not really bothering him now at all. He does give some history of fractures but cannot be more specific. PHYSICAL EXAMINATION: Musculoskeletal: He has decreased range of motion of his right shoulder, but he can forward flex with minimal pain to about 120, external rotation to about 50, internal rotation . Nontender clavicle, AC joint, acromion, bicipital groove. Full range of motion right elbow, wrist, and finger. He has good range of motion of bilateral hips, knees, ankles, and toes; 5/5 reflexes, intact sensation throughout. IMAGING: X-rays taken today in the emergency room and compared to x-rays which were performed at the beginning of November show that he has an impacted proximal humerus fracture. In November there was already callus formation, so the fracture had to be at least somewhat before that. Now there is more callus formation; however, it appears that it is going on to a nonunion as it does not appear to be a bridging callus and that he is developing pseudoarthrosis at the proximal humeral region as it impacted into the humeral head. X-rays of his femur show a united femoral shaft fracture that is many years old. IMPRESSION: Nonunion, right shoulder, with minimal pain and some decreased range of motion. RECOMMENDATIONS: Patient would benefit from some physical therapy. This can be arranged upon discharge. He can follow up in my office and I can arrange that as well. Patient can be discharged from the hospital if he is medically okay. CAM AYERS M.D. [id number]
[2020-01-14] MEDS ORDERED: chlordiazePOXIDE HCL 10 MG CAPSULE PO PRN (13:16)
--- NOTE | 2020-01-14 13:24 | ECHO ---
Name: CHELLY JAQUAN HERMOSILLO Exam:Adult Echocardiogram Study Date: 01/14/2020 08:26 AM Age: 69 yrs Reason For Study: LV Function Height: 64 in Weight: 100 lb BSA: 1.5 m2 MMode/2D Measurements & Calculations IVSd: 0.76 cm Ao root diam: 2.9 cm LVIDd: 4.1 cm LA dimension: 2.2 cm LVIDs: 2.4 cm LVPWd: 0.84 cm EDV(Teich): 72.5 ml LVOT diam: 2.0 cm ESV(Teich): 21.0 ml Doppler Measurements & Calculations MV E max noel: 98.5 cm/sec Ao V2 max: 148.0 cm/sec MV A max noel: 100.4 cm/sec Ao max P.8 mmHg MV E/A: 0.98 MV dec time: 0.25 sec NEHEMIAS(V,D): 1.7 cm2 LV V1 max P.9 mmHg MR max noel: 523.3 cm/sec LV V1 max: 84.9 cm/sec MR max P.5 mmHg TR max noel: 271.5 cm/sec PA V2 max: 92.3 cm/sec TR max P.5 mmHg PA max P.4 mmHg Med Peak E' Noel: 5.7 cm/sec Med E/e': 17.4 Lat Peak E' Noel: 5.2 cm/sec Lat E/e': 18.9 Procedure The study was technically limited with all images being suboptimal in quality. The patient was in nor mal sinus rhythm during the exam. Left Ventricle The left ventricular size, thickness and function are normal. Ejection Fraction = 60%. The transmitra l spectral Doppler flow pattern is suggestive of impaired LV relaxation. Right Ventricle The right ventricle is not well visualized. Atria The left atrial size is normal. Right atrium not well visualized. Mitral Valve There is mild mitral annular calcification. There is mild mitral regurgitation. Tricuspid Valve The tricuspid valve is not well visualized, but is grossly normal. There is mild tricuspid regurgitat ion. Right ventricular systolic pressure is elevated at 30-40mmHg. Aortic Valve There is moderate aortic sclerosis.;. No hemodynamically significant valvular aortic stenosis. Pulmonic Valve The pulmonic valve is not well visualized. Great Vessels The aortic root is normal size. Pericardium/Pleura Cannot adequately assess for pericardial effusion. Interpretation Summary The left ventricular size, thickness and function are normal The study was technically limited with all images being suboptimal in quality. The transmitral spectral Doppler flow pattern is suggestive of impaired LV relaxation. The right ventricle is not well visualized. The left atrial size is normal. There is mild mitral annular calcification. There is mild mitral regurgitation. There is mild tricuspid regurgitation. Right ventricular systolic pressure is elevated at 30-40mmHg. No hemodynamically significant valvular aortic stenosis. There is moderate aortic sclerosis.; MD Elier Garcia 01/14/2020 01:24 PM
[2020-01-14] MEDS: chlordiazePOXIDE HCL 25 MG CAPSULE PO SCH ×2 (13:30→22:00)
--- NOTE | 2020-01-14 13:38 | EKG ---
Test Reason : Blood Pressure : / mmHG Vent. Rate : 097 BPM Atrial Rate : 097 BPM P-R Int : 122 ms QRS Dur : 108 ms QT Int : 358 ms P-R-T Axes : 069 -77 077 degrees QTc Int : 454 ms NORMAL SINUS RHYTHM BIATRIAL ENLARGEMENT PULMONARY DISEASE PATTERN LEFT ANTERIOR FASCICULAR BLOCK ABNORMAL ECG WHEN COMPARED WITH ECG OF 30-NOV-2019 19:31, NO SIGNIFICANT CHANGE WAS FOUND Confirmed by MD Radha, Elier ([id number]) on 01/14/2020 1:38:06 PM Referred By: Confirmed By:Elier Garcia MD
--- NOTE | 2020-01-14 14:10 | CON.PULM ---
Consult Consult Specialty:: PULM/CCM Referred by:: Hospitalist Reason for Consultation:: Abnormal CT chest - History of Present Illness Chief Complaint: S/P Fall History of Present Illness: 69 M, COPD due to smoking, CVA, , EtOH use disorder, and DM. Admitetd via the ER due to EtOH intoxication and CP. Reports he fell asleep on the ground waiting for he bus. He next thing he recalls is that being in an ambulance. Reports non-reproducible CP, 11/29. No hemoptysis or night sweats. Last drink was this AM. CT: extensive chronic changes in the Apices Right > Left (probably chronic aspiration). Nonspecific 1.5 x .5 cm RLL irregular opacity. Minimal right clavicular air. - History Source History Provided By: Patient, Medical Record Limitations to Obtaining History: Poor Historian - Past Medical History Pulmonary: Yes: Bronchitis, Pneumonia - Alcohol/Substance Use Hx Alcohol Use: Yes (Vodka) Number of Drinks Daily: 3 Date of Last Use: 06/25/19 - Smoking History Smoking history: Current every day smoker Have you smoked in the past 12 months: Yes Aproximately how many cigarettes per day: 10 - Social History ADL: Independent Occupation: unemployed History of Recent Travel: No Home Medications - Allergies Allergies/Adverse Reactions: Allergies Allergy/AdvReac Type Severity Reaction Status Date / Time No Known Drug Allergies Allergy Verified 01/14/20 10:35 - Home Medications Home Medications: Ambulatory Orders Folic Acid 1 mg PO DAILY #30 tablet 10/12/19 Folic Acid - 1 mg PO DAILY #60 tablet 10/12/19 Gabapentin [Neurontin] 100 mg PO DAILY #30 capsule 10/12/19 Ibuprofen 800 mg PO TID #90 tablet 10/12/19 Metformin HCl [Glucophage] 500 mg PO DAILY #30 tablet 10/12/19 NK [No Known Home Medication] 11/30/19 Review of Systems - Review of Systems Constitutional: reports: Malaise. denies: Chills, Fever, Night Sweats, Unintentional Wgt. Loss Eyes: reports: No Symptoms HENT: reports: No Symptoms Neck: reports: No Symptoms Cardiovascular: reports: Chest Pain, Shortness of Breath. denies: Edema, Palpitations Respiratory: reports: Cough, SOB, SOB on Exertion. denies: Orthopnea, PND, Snoring, Wheezing Gastrointestinal: reports: No Symptoms Genitourinary: reports: No Symptoms Breasts: reports: No Symptoms Reported Musculoskeletal: reports: No Symptoms Integumentary: reports: No Symptoms Neurological: reports: No Symptoms Endocrine: reports: No Symptoms Hematology/Lymphatic: reports: No Symptoms Psychiatric: reports: No Symptoms Physical Exam Vital Sings: Vital Signs Temperature 97.5 F L 01/14/20 11:30 Pulse Rate 74 01/14/20 11:30 Respiratory Rate 19 01/14/20 11:30 Blood Pressure 132/72 01/14/20 11:30 O2 Sat by Pulse Oximetry (%) 100 01/14/20 11:30 Constitutional: Yes: No Distress, Thin Eyes: Yes: Conjunctiva Clear, EOM Intact HENT: Yes: Atraumatic, Normocephalic Neck: Yes: Supple, Trachea Midline Cardiovascular: Yes: Regular Rate and Rhythm Respiratory: Yes: Diminished, Rhonchi. No: Accessory Muscle Use, Rales, SOB, SOB on Exertion, Stridor, Tachypnea, Wheezes ...Inspection: Yes: WNL ...Clubbing: No Gastrointestinal: Yes: Normal Bowel Sounds, Soft, Tenderness, Rebound Musculoskeletal: Yes: WNL, Joint Stiffness, Joint Swelling, Muscle Pain Extremities: Yes: WNL Edema: No Peripheral Pulses WNL: Yes Integumentary: Yes: WNL Neurological: Yes: Alert ...Motor Strength: WNL Psychiatric: Yes: Alert Labs: CBC, BMP 01/14/20 05:30 01/14/20 05:30 Imaging - Results Chest X-ray: Report Reviewed, Image Reviewed Cat Scan: Report Reviewed, Image Reviewed Problem List - Problems (1) COPD (chronic obstructive pulmonary disease) Code(s): J44.9 - CHRONIC OBSTRUCTIVE PULMONARY DISEASE, UNSPECIFIED (2) Elevated ETOH level Code(s): R78.0 - FINDING OF ALCOHOL IN BLOOD Qualifiers: Blood alcohol level: level not specified Qualified Code(s): R78.0 - Finding of alcohol in blood (3) Shoulder fracture, right Code(s): S42.91XA - FRACTURE OF RIGHT SHOULDER GIRDLE, PART UNSP, INIT Qualifiers: Encounter type: subsequent encounter Fracture type: closed Fracture healing: with malunion Qualified Code(s): S42.91XP - Fracture of right shoulder girdle, part unspecified, subsequent encounter for fracture with malunion (4) Alcohol abuse Code(s): F10.10 - ALCOHOL ABUSE, UNCOMPLICATED (5) Right upper lobe consolidation Code(s): J18.1 - LOBAR PNEUMONIA, UNSPECIFIED ORGANISM (6) Severe protein-calorie malnutrition Code(s): E43 - UNSPECIFIED SEVERE PROTEIN-CALORIE MALNUTRITION (7) Shortness of breath Code(s): R06.02 - SHORTNESS OF BREATH (8) Smoker Code(s): F17.200 - NICOTINE DEPENDENCE, UNSPECIFIED, UNCOMPLICATED Assessment/Plan Nonspecific air noted on CT imaging possibly due to wretching or local trauma. Will resolve spontaneously. No ABX at this time No smoking counseled No indication for systemic steroids BD TX PRN Will need to follow RLL opacity (Can have PET imaging if compliant) There was a previous concern for P TB in 2019. At present no active symptoms but he should follow with [facility] as some work up was performed in 2019. Will follow DC planning Thank you. Dr Jeffers
--- NOTE | 2020-01-14 14:41 | PN ---
Physical Exam: SUBJECTIVE: Patient seen and examined. He currently denies nausea, vomiting, or pain. OBJECTIVE: Vital Signs Period Temp Pulse Resp BP Sys/Newsome Pulse Ox Last 24 Hr 97.3 F-98.2 F 72-97 16-19 81-132/49-72 95-100 GENERAL: The patient is awake, alert, and fully oriented, in no acute distress. HEAD: Normal with no signs of trauma. EYES: PERRL, extraocular movements intact, sclera anicteric, conjunctiva clear. ENT: Ears normal, nares patent, moist mucous membranes. NECK: Trachea midline. LUNGS: Clear to auscultation bilaterally, no wheezes. HEART: Regular rate and rhythm, S1, S2 without murmur. ABDOMEN: Soft, nontender, nondistended, normoactive bowel sounds. EXTREMITIES: Warm, well-perfused, no edema. NEUROLOGICAL: Cranial nerves II through XII grossly intact. Slow speech. PSYCH: Labile mood. SKIN: Warm, dry, normal turgor. Laboratory Results - last 24 hr 01/13/20 01/13/20 01/13/20 18:15 18:30 18:30 WBC 8.2 RBC 4.25 Hgb 12.9 Hct 39.7 MCV 93.5 MCH 30.4 MCHC 32.5 RDW 13.2 Plt Count 265 MPV 8.3 Absolute Neuts (auto) 5.7 Neutrophils % 68.9 Lymphocytes % 17.0 D Monocytes % 7.4 Eosinophils % 5.9 H Basophils % 0.8 Nucleated RBC % 0 PT with INR Cancelled INR Cancelled Sodium Potassium Chloride Carbon Dioxide Anion Gap BUN Creatinine Est GFR (CKD-EPI)AfAm Est GFR (CKD-EPI)NonAf POC Glucometer 193 Random Glucose Hemoglobin A1c % Calcium Phosphorus Magnesium Total Bilirubin AST ALT Alkaline Phosphatase Creatine Kinase Troponin I Total Protein Albumin Triglycerides Cholesterol Total LDL Cholesterol HDL Cholesterol TSH Alcohol, Quantitative 01/13/20 01/14/20 01/14/20 18:30 01:00 05:30 WBC 7.5 RBC 4.04 Hgb 12.1 Hct 38.0 MCV 94.0 MCH 30.0 MCHC 31.9 L RDW 12.5 Plt Count 219 MPV 8.6 Absolute Neuts (auto) 4.4 Neutrophils % 59.1 Lymphocytes % 22.2 D Monocytes % 10.8 H Eosinophils % 7.1 H Basophils % 0.8 Nucleated RBC % 0 PT with INR INR Sodium 140 Potassium 3.8 Chloride 105 Carbon Dioxide 25 Anion Gap 10 BUN 17.9 Creatinine 0.7 Est GFR (CKD-EPI)AfAm 110.82 Est GFR (CKD-EPI)NonAf 95.61 POC Glucometer Random Glucose 198 H Hemoglobin A1c % Calcium 8.7 Phosphorus 3.8 Magnesium 2.1 Total Bilirubin 0.4 AST 15 ALT 16 Alkaline Phosphatase 102 Creatine Kinase 90 Troponin I < 0.02 < 0.02 Total Protein 7.5 Albumin 3.2 L Triglycerides Cholesterol Total LDL Cholesterol HDL Cholesterol TSH Alcohol, Quantitative 118.9 H 01/14/20 01/14/20 01/14/20 05:30 05:30 05:30 WBC RBC Hgb Hct MCV MCH MCHC RDW Plt Count MPV Absolute Neuts (auto) Neutrophils % Lymphocytes % Monocytes % Eosinophils % Basophils % Nucleated RBC % PT with INR 15.10 H INR 1.28 H Sodium 142 Potassium 4.3 Chloride 111 H Carbon Dioxide 26 Anion Gap 5 L BUN 15.3 Creatinine 0.6 Est GFR (CKD-EPI)AfAm 118.07 Est GFR (CKD-EPI)NonAf 101.87 POC Glucometer Random Glucose 153 H Hemoglobin A1c % 7.8 H Calcium 8.2 L Phosphorus 3.5 Magnesium 2.0 Total Bilirubin 0.4 AST 18 ALT 12 L Alkaline Phosphatase 90 Creatine Kinase Troponin I Total Protein 6.4 Albumin 2.7 L Triglycerides 48 Cholesterol 129 Total LDL Cholesterol 70 HDL Cholesterol 46 TSH 0.72 Alcohol, Quantitative 01/14/20 01/14/20 07:29 10:28 WBC RBC Hgb Hct MCV MCH MCHC RDW Plt Count MPV Absolute Neuts (auto) Neutrophils % Lymphocytes % Monocytes % Eosinophils % Basophils % Nucleated RBC % PT with INR INR Sodium Potassium Chloride Carbon Dioxide Anion Gap BUN Creatinine Est GFR (CKD-EPI)AfAm Est GFR (CKD-EPI)NonAf POC Glucometer 130 197 Random Glucose Hemoglobin A1c % Calcium Phosphorus Magnesium Total Bilirubin AST ALT Alkaline Phosphatase Creatine Kinase Troponin I Total Protein Albumin Triglycerides Cholesterol Total LDL Cholesterol HDL Cholesterol TSH Alcohol, Quantitative Active Medications Generic Name Dose Route Start Last Admin Trade Name Freq PRN Reason Stop Dose Admin Acetaminophen 650 mg 01/14/20 00:46 Tylenol - PO Q6H PRN Fever Or Pain Albuterol/Ipratropium 1 amp 01/14/20 00:47 Duoneb - NEB Q6H PRN SHORTNESS OF BREATH Chlordiazepoxide HCl 25 mg 01/14/20 13:00 01/14/20 13:30 Librium - PO 01/15/20 21:01 Not Given Q8H NATALIA Chlordiazepoxide HCl 10 mg 01/17/20 00:00 Librium - PO 01/17/20 23:59 Q12H PRN Signs/symptoms of Withdrawal Chlordiazepoxide HCl 10 mg 01/14/20 13:16 Librium - PO 01/16/20 23:59 Q8H PRN Signs/symptoms of Withdrawal Chlordiazepoxide HCl 15 mg 01/16/20 05:00 Librium - PO 01/16/20 21:01 Q8H NATALIA Chlordiazepoxide HCl 10 mg 01/17/20 05:00 Librium - PO 01/17/20 21:01 Q8H NATALIA Chlordiazepoxide HCl 10 mg 01/18/20 05:00 Librium - PO 01/18/20 05:01 ONCE ONE Enoxaparin Sodium 40 mg 01/14/20 10:00 01/14/20 09:38 Lovenox - SQ 40 mg DAILY NATALIA Administration Folic Acid 1 mg 01/14/20 10:00 01/14/20 09:38 Folic Acid - PO 1 mg DAILY NATALIA Administration Lactated Ringer's 1,000 ml in 1,000 mls @ 75 mls/hr 01/14/20 10:30 01/14/20 10:30 Lactated Ringers Solution IV 75 mls/hr ASDIR NATALIA Administration Insulin Aspart 1 vial 01/14/20 07:00 01/14/20 10:28 Novolog Vial Sliding Scale - SQ 2 units ACHS NATALIA Administration Protocol Multivitamins/Minerals/Vitamin C 1 tab 01/14/20 10:00 01/14/20 09:38 Tab-A-Vit - PO 1 tab DAILY NATALIA Administration Nicotine 14 mg 01/14/20 10:00 01/14/20 09:39 Nicoderm Patch - TD Not Given DAILY [facility] Thiamine HCl 100 mg 01/14/20 10:00 01/14/20 09:38 Vitamin B1 - PO 100 mg DAILY NATALIA Administration ASSESSMENT/PLAN: Pt is a 69y/o male with ETOH use disorder, tobacco use disorder, COPD, and NIDDM who presents following drinking and laying down on the ground while waiting for the bus. He was brought in by EMS. #alcohol use disorder -ETOH 119 in ED, combative -CIWA 0 at this time but pt is very likely to begin withdrawal given ETOH level and amount he drinks daily -Librium taper for detox -thiamine -folate -MV -will discuss option of rehab when pt is more amenable to conversation -dietary consult #right shoulder pain -humeral fx in September -not currently in pain at interview time -ortho consult- nothing to do, f/u outpatient as needed #COPD -continue Symbicort BID -duonebs PRN -pulm consult- chronic changes in b/l apices R > L possibly from chronic aspiration, RLL 1.5cm x 1.5cm non-specific opacity, minimal right clavicular air -will need repeat CT as outpatient #tobacco use disorder -nicotine patch -tobacco cessation education #NIDDM -A1C 7.8 -hold home Janumet -SSI -BGMs DVT Ppx Lovenox FEN LR 75mL/hr monitor labs diabetic diet dispo med/surg FULL CODE Visit type - Emergency Visit Emergency Visit: Yes ED Registration Date: 01/13/20 Care time: The patient presented to the Emergency Department on the above date and was hospitalized for further evaluation of their emergent condition. - New Patient This patient is new to me today: Yes Date on this admission: 01/14/20 - Critical Care Critical Care patient: No ATTENDING PHYSICIAN STATEMENT I saw and evaluated the patient. I reviewed the resident's note and discussed the case with the resident. I agree with the resident's findings and plan as documented. SUBJECTIVE: OBJECTIVE: ASSESSMENT AND PLAN:
--- NOTE | 2020-01-14 16:14 | PN ---
Teaching Attending Note Name of Resident: Adama Nicole ATTENDING PHYSICIAN STATEMENT I saw and evaluated the patient. I reviewed the resident's note and discussed the case with the resident. I agree with the resident's findings and plan as documented. SUBJECTIVE: No fever or chills. No OLGUIN, noCP , no SOB , he feels better . repeats being at the bus station and feeling hot and decided to lay down, then found lots of people around him then he was brought him here has pain in RUE. he reports following with ortho in November, and was told no surgery is to be done on his arm pulled his IV earlier this am . OBJECTIVE: NAD, awake, alert, oriented x 3 .cooperative . No facial droop. dry MM CV: RRR Lungs: CTAB Ext: no edema or erythema on upper or lower extremities. R upper humer with slight deformity and tenderness to palpation . no erythema. olguin can lift arm x 90 degrees. RP 2+ b/l. ASSESSMENT AND PLAN: 69 y/o man with h/o COPD , CVA , EtOH use disorder, DM, Right proximal Humerus Fx in 10/09 who presented with alcohol intoxication 1- ETOH intoxication. expect withdrawal if ot treated. - given IV thiamine , electrolytes are normal - IVF - start librium protocol - po thiamine, MVT and folate - No need for tele . EKG reviewed. 2- Old R humeral hehad Fx with non reuniion. seen by ortho . No surgical procedure is indicated . full note to be transcribed 3- H/o DM. he takes no meds at home . - use SSi here - can dc on po meds when ready 4- mediastinal air seen on CT scan. no acuteintervention appreciate Pulm help. d/w Dr. veronica JIMENEZ follow up . pulm f.u 5- Mdiastinal lymphadenopathy, and pulm opacities, f/u as out pt .with [address] scan 6- T3 lesion in vertebral body. CT in 2 months . will dc to [facility] if possible tanesha ALEJO pending
[2020-01-14] MEDS ORDERED: DEXTROSE 50%-WATER 25 GM/50 ML DISP.SYRIN ONE ×2 (17:04→17:39)
[2020-01-14] MEDS ORDERED: DEXTROSE 50%-WATER - 25 GM/50 ML VIAL IVPUSH ONE (17:04)
[2020-01-14] MEDS: BUDESONIDE/FORMETEROL FUMARATE 160/4.5 mcg INHALER IH SCH (23:30)
[2020-01-15] MEDS: LACTATED RINGERS SOLUTION 1,000 ML/1,000 ML INFUS.BAG IV SCH ×2 (00:45→10:50)
[2020-01-15] MEDS: chlordiazePOXIDE HCL 25 MG CAPSULE PO SCH ×3 (06:00→20:33)
[2020-01-15] MEDS: INSULIN SLIDING SCALE (NOVOLOG) 1 VIAL SQ SCH ×4 (06:07→21:59)
[2020-01-15 07:14] LABS: BASO % 0.7 % (0-2.0); EOS % 4.5 % (0-4.5); HEMATOCRIT 36.7 % (35.4-49); LYMPH % 16.8 % (8-40); MCH 30.4 pg (25.7-33.7); MCHC 32.6 g/dl (32.0-35.9); MEAN CELL VOLUME 93.2 fl (80-96); MEAN PLT VOLUME 9.1 fl (7.5-11.1); MONO % 8.9 % (3.8-10.2); NEUT % 69.1 % (42.8-82.8); PLATELET COUNT 226 K/MM3 (134-434); RBC 3.94 M/mm3 (4.00-5.60); RDW 12.8 % (11.9-15.9); WHITE BLOOD COUNT 7.7 K/mm3 (4.0-10.0)
[2020-01-15 07:42] LABS: ALBUMIN 2.8 g/dl (3.4-5.0); BLOOD UREA NITROGEN 14.9 mg/dL (7-18); CALCIUM 8.3 mg/dL (8.5-10.1); POTASSIUM 4.2 mmol/L (3.5-5.1)
[2020-01-15 07:46] LABS: BILIRUBIN,TOTAL 0.4 mg/dL (0.2-1); CREATININE 0.5 mg/dL (0.55-1.3); PHOSPHOROUS 2.9 mg/dL (2.5-4.9); TOT PROT 6.7 g/dl (6.4-8.2)
[2020-01-15] MEDS: FOLIC ACID 1 MG TABLET (FP) PO SCH (09:17)
[2020-01-15] MEDS: ENOXAPARIN NA (PORCINE) 40 MG/0.4 ML DISP.SYRIN SQ SCH (09:17)
[2020-01-15] MEDS: ASPIRIN COATED 81 MG TABLET.EC PO SCH (09:18)
[2020-01-15] MEDS: MULTIVITAMINS (DAILY MVI) TABLET (FP) PO SCH (09:18)
[2020-01-15] MEDS: THIAMINE HCL 100 MG TABLET (FP) PO SCH (09:18)
[2020-01-15] MEDS: NICOTINE 14 MG/24 HOURS TOPICAL PATCH TD SCH (09:18)
[2020-01-15] MEDS: BUDESONIDE/FORMETEROL FUMARATE 160/4.5 mcg INHALER IH SCH ×2 (09:21→22:01)
[2020-01-15] MEDS: ACETAMINOPHEN 325 MG TABLET (FP) PO PRN (12:58)
--- NOTE | 2020-01-15 14:12 | PN ---
Progress Note (short form) - Note Progress Note: Resting in NAD. Awake and alert but remains mildly confused. Breathing non-labored. Intake & Output 01/12/20 01/13/20 01/14/20 01/15/20 23:59 23:59 23:59 23:59 Intake Total 400 525 Balance 400 525 Weight 100 lb 101 lb 12.8 oz Last Vital Signs Temp Pulse Resp BP Pulse Ox 98.0 F 76 18 114/62 96 01/15/20 13:56 01/15/20 13:56 01/15/20 13:56 01/15/20 13:56 01/15/20 09:00 Active Medications Acetaminophen (Tylenol -) 650 mg PO Q6H PRN PRN Reason: Fever Or Pain Last Admin: 01/15/20 12:58 Dose: 650 mg Documented by: Albuterol/Ipratropium (Duoneb -) 1 amp NEB Q6H PRN PRN Reason: SHORTNESS OF BREATH Aspirin (Ecotrin -) 81 mg PO DAILY [facility] Last Admin: 01/15/20 09:18 Dose: 81 mg Documented by: Budesonide/Formoterol Fumarate (Symbicort 160/4.5mcg -) 2 puff IH BID [facility] Last Admin: 01/15/20 09:21 Dose: 2 puff Documented by: Chlordiazepoxide HCl (Librium -) 25 mg PO Q8H [facility] Stop: 01/15/20 21:01 Last Admin: 01/15/20 12:40 Dose: 25 mg Documented by: Chlordiazepoxide HCl (Librium -) 10 mg PO Q12H PRN PRN Reason: Signs/symptoms of Withdrawal Stop: 01/17/20 23:59 Chlordiazepoxide HCl (Librium -) 10 mg PO Q8H PRN PRN Reason: Signs/symptoms of Withdrawal Stop: 01/16/20 23:59 Chlordiazepoxide HCl (Librium -) 15 mg PO Q8H [facility] Stop: 01/16/20 21:01 Chlordiazepoxide HCl (Librium -) 10 mg PO Q8H [facility] Stop: 01/17/20 21:01 Chlordiazepoxide HCl (Librium -) 10 mg PO ONCE ONE Stop: 01/18/20 05:01 Enoxaparin Sodium (Lovenox -) 40 mg SQ DAILY [facility] Last Admin: 01/15/20 09:17 Dose: 40 mg Documented by: Folic Acid (Folic Acid -) 1 mg PO DAILY [facility] Last Admin: 01/15/20 09:17 Dose: 1 mg Documented by: Lactated Ringer's (Lactated Ringers Solution) 1,000 ml in 1,000 mls @ 75 mls/hr IV ASDIR [facility] Last Admin: 01/15/20 10:50 Dose: Not Given Documented by: Insulin Aspart (Novolog Vial Sliding Scale -) 1 vial SQ ACHS [facility]; Protocol Last Admin: 01/15/20 10:54 Dose: 2 units Documented by: Multivitamins/Minerals/Vitamin C (Tab-A-Vit -) 1 tab PO DAILY [facility] Last Admin: 01/15/20 09:18 Dose: 1 tab Documented by: Nicotine (Nicoderm Patch -) 14 mg TD DAILY [facility] Last Admin: 01/15/20 09:18 Dose: 14 mg Documented by: Thiamine HCl (Vitamin B1 -) 100 mg PO DAILY [facility] Last Admin: 01/15/20 09:18 Dose: 100 mg Documented by: Constitutional: Yes: No Distress, Thin Eyes: Yes: Conjunctiva Clear, EOM Intact HENT: Yes: Atraumatic, Normocephalic Neck: Yes: Supple, Trachea Midline Cardiovascular: Yes: Regular Rate and Rhythm Respiratory: Yes: Diminished, Rhonchi. No: Accessory Muscle Use, Rales, SOB, SOB on Exertion, Stridor, Tachypnea, Wheezes ...Inspection: Yes: WNL ...Clubbing: No Gastrointestinal: Yes: Normal Bowel Sounds, Soft, Tenderness, Rebound Musculoskeletal: Yes: WNL, Joint Stiffness, Joint Swelling, Muscle Pain Extremities: Yes: WNL Edema: No Peripheral Pulses WNL: Yes Integumentary: Yes: WNL Neurological: Yes: Alert ...Motor Strength: WNL Psychiatric: Yes: Alert Labs: Laboratory Results - last 24 hr 01/14/20 01/14/20 01/14/20 10:59 15:27 17:03 WBC RBC Hgb Hct MCV MCH MCHC RDW Plt Count MPV Absolute Neuts (auto) Neutrophils % Lymphocytes % Monocytes % Eosinophils % Basophils % Nucleated RBC % Sodium Potassium Chloride Carbon Dioxide Anion Gap BUN Creatinine Est GFR (CKD-EPI)AfAm Est GFR (CKD-EPI)NonAf POC Glucometer 206 49 Random Glucose Calcium Phosphorus Magnesium Total Bilirubin AST ALT Alkaline Phosphatase Total Protein Albumin COVID-19 ([place]) Not detected 01/14/20 01/15/20 01/15/20 21:59 06:06 06:26 WBC 7.7 RBC 3.94 L Hgb 12.0 Hct 36.7 MCV 93.2 MCH 30.4 MCHC 32.6 RDW 12.8 Plt Count 226 MPV 9.1 Absolute Neuts (auto) 5.3 Neutrophils % 69.1 Lymphocytes % 16.8 D Monocytes % 8.9 Eosinophils % 4.5 Basophils % 0.7 Nucleated RBC % 0 Sodium Potassium Chloride Carbon Dioxide Anion Gap BUN Creatinine Est GFR (CKD-EPI)AfAm Est GFR (CKD-EPI)NonAf POC Glucometer 146 200 Random Glucose Calcium Phosphorus Magnesium Total Bilirubin AST ALT Alkaline Phosphatase Total Protein Albumin COVID-19 ([place]) 01/15/20 01/15/20 06:26 10:49 WBC RBC Hgb Hct MCV MCH MCHC RDW Plt Count MPV Absolute Neuts (auto) Neutrophils % Lymphocytes % Monocytes % Eosinophils % Basophils % Nucleated RBC % Sodium 134 L Potassium 4.2 Chloride 104 Carbon Dioxide 23 Anion Gap 7 L BUN 14.9 Creatinine 0.5 L Est GFR (CKD-EPI)AfAm 127.25 Est GFR (CKD-EPI)NonAf 109.79 POC Glucometer 166 Random Glucose 220 H Calcium 8.3 L Phosphorus 2.9 Magnesium 2.0 Total Bilirubin 0.4 AST 13 L ALT 11 L Alkaline Phosphatase 87 Total Protein 6.7 Albumin 2.8 L COVID-19 ([place]) Imaging - Results Chest X-ray: Report Reviewed, Image Reviewed Cat Scan: Report Reviewed, Image Reviewed Problem List - Problems (1) COPD (chronic obstructive pulmonary disease) Code(s): J44.9 - CHRONIC OBSTRUCTIVE PULMONARY DISEASE, UNSPECIFIED (2) Elevated ETOH level Code(s): R78.0 - FINDING OF ALCOHOL IN BLOOD Qualifiers: Blood alcohol level: level not specified Qualified Code(s): R78.0 - Finding of alcohol in blood (3) Shoulder fracture, right Code(s): S42.91XA - FRACTURE OF RIGHT SHOULDER GIRDLE, PART UNSP, INIT Qualifiers: Encounter type: subsequent encounter Fracture type: closed Fracture healing: with malunion Qualified Code(s): S42.91XP - Fracture of right shoulder girdle, part unspecified, subsequent encounter for fracture with malunion (4) Alcohol abuse Code(s): F10.10 - ALCOHOL ABUSE, UNCOMPLICATED (5) Right upper lobe consolidation Code(s): J18.1 - LOBAR PNEUMONIA, UNSPECIFIED ORGANISM (6) Severe protein-calorie malnutrition Code(s): E43 - UNSPECIFIED SEVERE PROTEIN-CALORIE MALNUTRITION (7) Shortness of breath Code(s): R06.02 - SHORTNESS OF BREATH (8) Smoker Code(s): F17.200 - NICOTINE DEPENDENCE, UNSPECIFIED, UNCOMPLICATED Assessment/Plan No ABX at this time No smoking counseled No indication for systemic steroids BD TX PRN Will need to follow RLL opacity (Can have PET imaging if compliant) There was a previous concern for P TB in 2019. At present no active symptoms but he should follow with [facility] as some work up was performed in 2019. DC planning Dr Jeffers Problem List - Problems (1) COPD (chronic obstructive pulmonary disease) Code(s): J44.9 - CHRONIC OBSTRUCTIVE PULMONARY DISEASE, UNSPECIFIED (2) Elevated ETOH level Code(s): R78.0 - FINDING OF ALCOHOL IN BLOOD Qualifiers: Blood alcohol level: level not specified Qualified Code(s): R78.0 - Finding of alcohol in blood (3) Shoulder fracture, right Code(s): S42.91XA - FRACTURE OF RIGHT SHOULDER GIRDLE, PART UNSP, INIT Qualifiers: Encounter type: subsequent encounter Fracture type: closed Fracture healing: with malunion Qualified Code(s): S42.91XP - Fracture of right shoulder girdle, part unspecified, subsequent encounter for fracture with malunion (4) Alcohol abuse Code(s): F10.10 - ALCOHOL ABUSE, UNCOMPLICATED (5) Right upper lobe consolidation Code(s): J18.1 - LOBAR PNEUMONIA, UNSPECIFIED ORGANISM (6) Severe protein-calorie malnutrition Code(s): E43 - UNSPECIFIED SEVERE PROTEIN-CALORIE MALNUTRITION (7) Shortness of breath Code(s): R06.02 - SHORTNESS OF BREATH (8) Smoker Code(s): F17.200 - NICOTINE DEPENDENCE, UNSPECIFIED, UNCOMPLICATED
[2020-01-15 14:31] VITALS: BMI 17.3
--- NOTE | 2020-01-15 16:21 | PN ---
Teaching Attending Note Name of Resident: Cierra Zamora ATTENDING PHYSICIAN STATEMENT I saw and evaluated the patient. I reviewed the resident's note and discussed the case with the resident. I agree with the resident's findings and plan as documented. SUBJECTIVE: pain in shouldfer , back , legs and every body part. No SOB . No cp : OBJECTIVE: NAD, awake, alert, oriented x 3 .cooperative . No facial droop. dry MM CV: RRR Lungs: CTAB Abd: sfot, NT, Nd , NL BS Ext: no edema or erythema on upper or lower extremities. R upper humer with slight deformity and tenderness to palpation . no erythema.. ASSESSMENT AND PLAN: 69 y/o man with h/o COPD , CVA , EtOH use disorder, DM, Right proximal Humerus Fx in 10/09 who presented with alcohol intoxication 1- ETOH intoxication - dc IVf - cont po folate and thiamine - cont librium 2- Old R humeral hehad Fx with non reunion. seen by ortho . No surgical p rocedure is indicated . 3- H/o DM. he takes no meds at home . - use SS[facility] here - can dc on po meds when ready 4- mediastinal air seen on CT scan. no intervention 5- Mdiastinal lymphadenopathy, and pulm opacities, f/u as out pt .with [address] scan f/u with [facility] 6- T3 lesion in vertebral body. CT in 2 months . [facility] transfer if accepted
--- NOTE | 2020-01-15 17:45 | PN ---
Physical Exam: SUBJECTIVE: Patient seen and examined. Pt reports initially having back pain but has resolved. He reports only having had 1 drink to help with his cold symptoms. He denies having a drinking problem and refuses to go to [facility] for detox. Pt has positional right arm pain. OBJECTIVE: Vital Signs Period Temp Pulse Resp BP Sys/Newsome Pulse Ox Last 24 Hr 97.6 F-98.8 F 66-85 16-20 105-122/51-62 96-96 GENERAL: The patient is awake, alert, and fully oriented, in no acute distress. Thin. HEAD: Normal with no signs of trauma. EYES: PERRL, extraocular movements intact, sclera anicteric, conjunctiva clear. ENT: Ears normal, nares patent, moist mucous membranes. NECK: Trachea midline. LUNGS: Clear to auscultation bilaterally, no wheezes. HEART: Regular rate and rhythm, S1, S2 without murmur. ABDOMEN: Soft, nontender, nondistended, normoactive bowel sounds. EXTREMITIES: Warm, well-perfused, no edema. NEUROLOGICAL: Cranial nerves II through XII grossly intact. Slow speech. PSYCH: Labile mood. SKIN: Warm, dry, normal turgor. Laboratory Results - last 24 hr 01/14/20 01/14/20 01/15/20 10:59 21:59 06:06 WBC RBC Hgb Hct MCV MCH MCHC RDW Plt Count MPV Absolute Neuts (auto) Neutrophils % Lymphocytes % Monocytes % Eosinophils % Basophils % Nucleated RBC % Sodium Potassium Chloride Carbon Dioxide Anion Gap BUN Creatinine Est GFR (CKD-EPI)AfAm Est GFR (CKD-EPI)NonAf POC Glucometer 146 200 Random Glucose Calcium Phosphorus Magnesium Total Bilirubin AST ALT Alkaline Phosphatase Total Protein Albumin COVID-19 ([place]) Not detected 01/15/20 01/15/20 01/15/20 06:26 06:26 10:49 WBC 7.7 RBC 3.94 L Hgb 12.0 Hct 36.7 MCV 93.2 MCH 30.4 MCHC 32.6 RDW 12.8 Plt Count 226 MPV 9.1 Absolute Neuts (auto) 5.3 Neutrophils % 69.1 Lymphocytes % 16.8 D Monocytes % 8.9 Eosinophils % 4.5 Basophils % 0.7 Nucleated RBC % 0 Sodium 134 L Potassium 4.2 Chloride 104 Carbon Dioxide 23 Anion Gap 7 L BUN 14.9 Creatinine 0.5 L Est GFR (CKD-EPI)AfAm 127.25 Est GFR (CKD-EPI)NonAf 109.79 POC Glucometer 166 Random Glucose 220 H Calcium 8.3 L Phosphorus 2.9 Magnesium 2.0 Total Bilirubin 0.4 AST 13 L ALT 11 L Alkaline Phosphatase 87 Total Protein 6.7 Albumin 2.8 L COVID-19 ([place]) 01/15/20 16:42 WBC RBC Hgb Hct MCV MCH MCHC RDW Plt Count MPV Absolute Neuts (auto) Neutrophils % Lymphocytes % Monocytes % Eosinophils % Basophils % Nucleated RBC % Sodium Potassium Chloride Carbon Dioxide Anion Gap BUN Creatinine Est GFR (CKD-EPI)AfAm Est GFR (CKD-EPI)NonAf POC Glucometer 188 Random Glucose Calcium Phosphorus Magnesium Total Bilirubin AST ALT Alkaline Phosphatase Total Protein Albumin COVID-19 ([place]) Active Medications Generic Name Dose Route Start Last Admin Trade Name Freq PRN Reason Stop Dose Admin Acetaminophen 650 mg 01/14/20 00:46 01/15/20 12:58 Tylenol - PO 650 mg Q6H PRN Administration Fever Or Pain Albuterol/Ipratropium 1 amp 01/14/20 00:47 Duoneb - NEB Q6H PRN SHORTNESS OF BREATH Aspirin 81 mg 01/15/20 10:00 01/15/20 09:18 Ecotrin - PO 81 mg DAILY [facility] Administration Budesonide/Formoterol Fumarate 2 puff 01/14/20 22:00 01/15/20 09:21 Symbicort 160/4.5mcg - IH 2 puff BID [facility] Administration Chlordiazepoxide HCl 25 mg 01/14/20 13:00 01/15/20 12:40 Librium - PO 01/15/20 21:01 25 mg Q8H [facility] Administration Chlordiazepoxide HCl 10 mg 01/17/20 00:00 Librium - PO 01/17/20 23:59 Q12H PRN Signs/symptoms of Withdrawal Chlordiazepoxide HCl 10 mg 01/14/20 13:16 Librium - PO 01/16/20 23:59 Q8H PRN Signs/symptoms of Withdrawal Chlordiazepoxide HCl 15 mg 01/16/20 05:00 Librium - PO 01/16/20 21:01 Q8H [facility] Chlordiazepoxide HCl 10 mg 01/17/20 05:00 Librium - PO 01/17/20 21:01 Q8H [facility] Chlordiazepoxide HCl 10 mg 01/18/20 05:00 Librium - PO 01/18/20 05:01 ONCE ONE Enoxaparin Sodium 40 mg 01/14/20 10:00 01/15/20 09:17 Lovenox - SQ 40 mg DAILY [facility] Administration Folic Acid 1 mg 01/14/20 10:00 01/15/20 09:17 Folic Acid - PO 1 mg DAILY [facility] Administration Insulin Aspart 1 vial 01/14/20 07:00 01/15/20 16:43 Novolog Vial Sliding Scale - SQ 2 units ACHS [facility] Administration Protocol Multivitamins/Minerals/Vitamin C 1 tab 01/14/20 10:00 01/15/20 09:18 Tab-A-Vit - PO 1 tab DAILY [facility] Administration Nicotine 14 mg 01/14/20 10:00 01/15/20 09:18 Nicoderm Patch - TD 14 mg DAILY [facility] Administration Thiamine HCl 100 mg 01/14/20 10:00 01/15/20 09:18 Vitamin B1 - PO 100 mg DAILY [facility] Administration ASSESSMENT/PLAN: Pt is a 69y/o male with ETOH use disorder, tobacco use disorder, COPD, and NIDDM who presents following drinking and laying down on the ground while waiting for the bus. He was brought in by EMS. #alcohol use disorder -ETOH 119 in ED, combative at presentation -CIWA 0, symptoms well-controlled -Librium taper for detox day 2 -thiamine -folate -MV #failure to thrive -BMI 17 -likely 2/2 ETOH use -encourage eating -vitamin supplements -size mixer consult #right shoulder pain -humeral fx in September -ortho consult- nothing to do, f/u outpatient as needed #COPD -continue Symbicort BID -duonebs PRN -pulm consult- chronic changes in b/l apices R > L possibly from chronic aspiration, RLL 1.5cm x 1.5cm non-specific opacity, minimal right clavicular air -will need repeat CT as outpatient #tobacco use disorder -nicotine patch -tobacco cessation education #NIDDM -A1C 7.8 -hold home Janumet -SSI -BGMs DVT Ppx Lovenox FEN d/c fluids as long as pt is tolerating PO, IV keeps coming out monitor labs diabetic diet dispo med/surg FULL CODE Visit type - Emergency Visit Emergency Visit: Yes ED Registration Date: 01/13/20 Care time: The patient presented to the Emergency Department on the above date and was hospitalized for further evaluation of their emergent condition. - New Patient This patient is new to me today: No - Critical Care Critical Care patient: No ATTENDING PHYSICIAN STATEMENT I saw and evaluated the patient. I reviewed the resident's note and discussed the case with the resident. I agree with the resident's findings and plan as documented. SUBJECTIVE: OBJECTIVE: ASSESSMENT AND PLAN:
[2020-01-16] MEDS: chlordiazePOXIDE 5 MG CAPSULE PO SCH ×3 (05:06→21:32)
[2020-01-16] MEDS: INSULIN SLIDING SCALE (NOVOLOG) 1 VIAL SQ SCH ×4 (06:02→21:29)
[2020-01-16 08:45] LABS: BLOOD UREA NITROGEN 19.6 mg/dL (7-18); CREATININE 0.6 mg/dL (0.55-1.3); POTASSIUM 4.4 mmol/L (3.5-5.1)
[2020-01-16 08:46] LABS: CALCIUM 8.5 mg/dL (8.5-10.1); MAGNESIUM 2.2 mg/dL (1.8-2.4); PHOSPHOROUS 3.4 mg/dL (2.5-4.9)
[2020-01-16] MEDS ORDERED: PT OWN MED DRAWER 7, Y5N ONE ×2 (10:49→17:55)
[2020-01-16] MEDS: MULTIVITAMINS (DAILY MVI) TABLET (FP) PO SCH (11:04)
[2020-01-16] MEDS: ASPIRIN COATED 81 MG TABLET.EC PO SCH (11:04)
[2020-01-16] MEDS: ENOXAPARIN NA (PORCINE) 40 MG/0.4 ML DISP.SYRIN SQ SCH (11:04)
[2020-01-16] MEDS: THIAMINE HCL 100 MG TABLET (FP) PO SCH (11:04)
[2020-01-16] MEDS: FOLIC ACID 1 MG TABLET (FP) PO SCH (11:04)
[2020-01-16] MEDS: NICOTINE 14 MG/24 HOURS TOPICAL PATCH TD SCH (11:05)
[2020-01-16] MEDS: ACETAMINOPHEN 325 MG TABLET (FP) PO PRN (14:30)
[2020-01-16] MEDS: BUDESONIDE/FORMETEROL FUMARATE 160/4.5 mcg INHALER IH SCH ×2 (14:33→21:33)
--- NOTE | 2020-01-16 16:36 | PN ---
Physical Exam: SUBJECTIVE: Patient seen and examined. Pt has no complaints today. OBJECTIVE: Vital Signs Period Temp Pulse Resp BP Sys/Newsome Pulse Ox Last 24 Hr 97.3 F-98.8 F 75-86 16-19 97-123/57-69 96 GENERAL: The patient is awake, alert, and fully oriented, in no acute distress. Thin. HEAD: Normal with no signs of trauma. EYES: PERRL, extraocular movements intact, sclera anicteric, conjunctiva clear. ENT: Ears normal, nares patent, moist mucous membranes. NECK: Trachea midline. LUNGS: Clear to auscultation bilaterally, no wheezes. HEART: Regular rate and rhythm, S1, S2 without murmur. ABDOMEN: Soft, nontender, nondistended, normoactive bowel sounds. EXTREMITIES: Warm, well-perfused, no edema. NEUROLOGICAL: Cranial nerves II through XII grossly intact. Slow speech. PSYCH: Labile mood. SKIN: Warm, dry, normal turgor. Laboratory Results - last 24 hr 01/15/20 01/15/20 01/16/20 16:42 21:57 05:58 Sodium Potassium Chloride Carbon Dioxide Anion Gap BUN Creatinine Est GFR (CKD-EPI)AfAm Est GFR (CKD-EPI)NonAf POC Glucometer 188 156 185 Random Glucose Calcium Phosphorus Magnesium 01/16/20 01/16/20 07:15 11:24 Sodium 136 Potassium 4.4 Chloride 104 Carbon Dioxide 28 Anion Gap 4 L BUN 19.6 H Creatinine 0.6 Est GFR (CKD-EPI)AfAm 118.07 Est GFR (CKD-EPI)NonAf 101.87 POC Glucometer 253 Random Glucose 129 H Calcium 8.5 Phosphorus 3.4 Magnesium 2.2 Active Medications Generic Name Dose Route Start Last Admin Trade Name Freq PRN Reason Stop Dose Admin Acetaminophen 650 mg 01/14/20 00:46 01/16/20 14:30 Tylenol - PO 650 mg Q6H PRN Administration Fever Or Pain Albuterol/Ipratropium 1 amp 01/14/20 00:47 Duoneb - NEB Q6H PRN SHORTNESS OF BREATH Aspirin 81 mg 01/15/20 10:00 01/16/20 11:04 Ecotrin - PO 81 mg DAILY [facility] Administration Budesonide/Formoterol Fumarate 2 puff 01/14/20 22:00 01/16/20 14:33 Symbicort 160/4.5mcg - IH Not Given BID [facility] Chlordiazepoxide HCl 10 mg 01/17/20 00:00 Librium - PO 01/17/20 23:59 Q12H PRN Signs/symptoms of Withdrawal Chlordiazepoxide HCl 10 mg 01/14/20 13:16 Librium - PO 01/16/20 23:59 Q8H PRN Signs/symptoms of Withdrawal Chlordiazepoxide HCl 15 mg 01/16/20 05:00 01/16/20 14:32 Librium - PO 01/16/20 21:01 15 mg Q8H [facility] Administration Chlordiazepoxide HCl 10 mg 01/17/20 05:00 Librium - PO 01/17/20 21:01 Q8H [facility] Chlordiazepoxide HCl 10 mg 01/18/20 05:00 Librium - PO 01/18/20 05:01 ONCE ONE Enoxaparin Sodium 40 mg 01/14/20 10:00 01/16/20 11:04 Lovenox - SQ 40 mg DAILY [facility] Administration Folic Acid 1 mg 01/14/20 10:00 01/16/20 11:04 Folic Acid - PO 1 mg DAILY [facility] Administration Insulin Aspart 1 vial 01/14/20 07:00 01/16/20 11:56 Novolog Vial Sliding Scale - SQ 6 units ACHS [facility] Administration Protocol Multivitamins/Minerals/Vitamin C 1 tab 01/14/20 10:00 01/16/20 11:04 Tab-A-Vit - PO 1 tab DAILY [facility] Administration Nicotine 14 mg 01/14/20 10:00 01/16/20 11:05 Nicoderm Patch - TD 14 mg DAILY [facility] Administration Thiamine HCl 100 mg 01/14/20 10:00 01/16/20 11:04 Vitamin B1 - PO 100 mg DAILY [facility] Administration ASSESSMENT/PLAN: Pt is a 69y/o male with ETOH use disorder, tobacco use disorder, COPD, and NIDDM who presents following drinking and laying down on the ground while waiting for the bus. He was brought in by EMS. #alcohol use disorder -ETOH 119 in ED, combative at presentation -CIWA 0, symptoms well-controlled -Librium taper for detox day 3 -pt denies being alcoholic and is refusing to go to [facility], will complete tx here -thiamine -folate -MV #failure to thrive -BMI 17 -likely 2/2 ETOH use -encourage eating -vitamin supplements -flight instructor consult #right shoulder pain -humeral fx in September -ortho consult- nothing to do, f/u outpatient as needed #COPD -continue Symbicort BID -duonebs PRN -pulm consult- chronic changes in b/l apices R > L possibly from chronic aspiration, RLL 1.5cm x 1.5cm non-specific opacity, minimal right clavicular air -will need repeat CT/PET as outpatient #tobacco use disorder -nicotine patch -tobacco cessation education #NIDDM -A1C 7.8 -hold home Janumet -SSI -BGMs DVT Ppx Lovenox FEN d/c fluids as long as pt is tolerating PO, IV keeps coming out monitor labs diabetic diet dispo med/surg FULL CODE Visit type - Emergency Visit Emergency Visit: Yes ED Registration Date: 01/13/20 Care time: The patient presented to the Emergency Department on the above date and was hospitalized for further evaluation of their emergent condition. - New Patient This patient is new to me today: No - Critical Care Critical Care patient: No ATTENDING PHYSICIAN STATEMENT I saw and evaluated the patient. I reviewed the resident's note and discussed the case with the resident. I agree with the resident's findings and plan as documented. SUBJECTIVE: OBJECTIVE: ASSESSMENT AND PLAN:
--- NOTE | 2020-01-16 17:36 | PN ---
Teaching Attending Note Name of Resident: Cierra Zamora ATTENDING PHYSICIAN STATEMENT I saw and evaluated the patient. I reviewed the resident's note and discussed the case with the resident. I agree with the resident's findings and plan as documented. SUBJECTIVE: Patient has no complaints. OBJECTIVE: Vital Signs Period Temp Pulse Resp BP Sys/Newsome Pulse Ox Last 24 Hr 97.3 F-98.6 F 75-86 16-19 97-123/57-69 96 HEART: S1S2, RRR LUNGS: Clear ABDOMEN: Soft, non-tender, non-distended, normal BS EXTREMITIES: No edema Laboratory Results - last 24 hr 01/15/20 01/16/20 01/16/20 21:57 05:58 07:15 Sodium 136 Potassium 4.4 Chloride 104 Carbon Dioxide 28 Anion Gap 4 L BUN 19.6 H Creatinine 0.6 Est GFR (CKD-EPI)AfAm 118.07 Est GFR (CKD-EPI)NonAf 101.87 POC Glucometer 156 185 Random Glucose 129 H Calcium 8.5 Phosphorus 3.4 Magnesium 2.2 01/16/20 01/16/20 11:24 17:19 Sodium Potassium Chloride Carbon Dioxide Anion Gap BUN Creatinine Est GFR (CKD-EPI)AfAm Est GFR (CKD-EPI)NonAf POC Glucometer 253 173 Random Glucose Calcium Phosphorus Magnesium Current Medications Generic Name Dose Route Start Last Admin Trade Name Freq PRN Reason Stop Dose Admin Acetaminophen 650 mg 01/14/20 00:46 01/16/20 14:30 Tylenol - PO 650 mg Q6H PRN Administration Fever Or Pain Albuterol/Ipratropium 1 amp 01/14/20 00:47 Duoneb - NEB Q6H PRN SHORTNESS OF BREATH Aspirin 81 mg 01/15/20 10:00 01/16/20 11:04 Ecotrin - PO 81 mg DAILY [facility] Administration Budesonide/Formoterol Fumarate 2 puff 01/14/20 22:00 01/16/20 14:33 Symbicort 160/4.5mcg - IH Not Given BID [facility] Chlordiazepoxide HCl 10 mg 01/17/20 00:00 Librium - PO 01/17/20 23:59 Q12H PRN Signs/symptoms of Withdrawal Chlordiazepoxide HCl 10 mg 01/14/20 13:16 Librium - PO 01/16/20 23:59 Q8H PRN Signs/symptoms of Withdrawal Chlordiazepoxide HCl 15 mg 01/16/20 05:00 01/16/20 14:32 Librium - PO 01/16/20 21:01 15 mg Q8H [facility] Administration Chlordiazepoxide HCl 10 mg 01/17/20 05:00 Librium - PO 01/17/20 21:01 Q8H [facility] Chlordiazepoxide HCl 10 mg 01/18/20 05:00 Librium - PO 01/18/20 05:01 ONCE ONE Enoxaparin Sodium 40 mg 01/14/20 10:00 01/16/20 11:04 Lovenox - SQ 40 mg DAILY [facility] Administration Folic Acid 1 mg 01/14/20 10:00 01/16/20 11:04 Folic Acid - PO 1 mg DAILY [facility] Administration Insulin Aspart 1 vial 01/14/20 07:00 01/16/20 17:25 Novolog Vial Sliding Scale - SQ 2 units ACHS [facility] Administration Protocol Multivitamins/Minerals/Vitamin C 1 tab 01/14/20 10:00 01/16/20 11:04 Tab-A-Vit - PO 1 tab DAILY [facility] Administration Nicotine 14 mg 01/14/20 10:00 01/16/20 11:05 Nicoderm Patch - TD 14 mg DAILY [facility] Administration Thiamine HCl 100 mg 01/14/20 10:00 01/16/20 11:04 Vitamin B1 - PO 100 mg DAILY [facility] Administration ASSESSMENT AND PLAN: This is a 69 year old man with a history of COPD, CVA, type 2 DM, alcohol abuse who presented to the ED after falling. 1. Alcohol dependence, continuous - Continue Librium detox - Continue thiamine, folic acid, multivitamin - Refusing detox/[facility]hab at [facility]
[2020-01-16] MEDS ORDERED: INSULIN (NOVOLOG) ASPART 100 UNITS/ML 10ML VIAL ONE ×2 (17:55→21:36)
[2020-01-17] MEDS ORDERED: chlordiazePOXIDE HCL 10 MG CAPSULE PO PRN
[2020-01-17] MEDS: chlordiazePOXIDE HCL 10 MG CAPSULE PO SCH ×2 (05:35→13:04)
[2020-01-17] MEDS: INSULIN SLIDING SCALE (NOVOLOG) 1 VIAL SQ SCH ×2 (06:00→11:49)
[2020-01-17 07:44] LABS: BASO % 0.8 % (0-2.0); EOS % 1.5 % (0-4.5); HEMATOCRIT 38.8 % (35.4-49); HEMOGLOBIN 12.5 GM/dL (11.7-16.9); LYMPH % 8.5 % (8-40); MCH 30.7 pg (25.7-33.7); MCHC 32.3 g/dl (32.0-35.9); MEAN CELL VOLUME 95.2 fl (80-96); MEAN PLT VOLUME 9.2 fl (7.5-11.1); MONO % 7.2 % (3.8-10.2); PLATELET COUNT 247 K/MM3 (134-434); RBC 4.08 M/mm3 (4.00-5.60); RDW 12.7 % (11.9-15.9); WHITE BLOOD COUNT 13.5 K/mm3 (4.0-10.0)
[2020-01-17 08:00] LABS: ALBUMIN 3.1 g/dl (3.4-5.0); BILIRUBIN,TOTAL 0.9 mg/dL (0.2-1); BLOOD UREA NITROGEN 18.4 mg/dL (7-18); CREATININE 0.7 mg/dL (0.55-1.3); POTASSIUM 5.2 mmol/L (3.5-5.1); TOT PROT 7.5 g/dl (6.4-8.2)
[2020-01-17 08:07] LABS: CALCIUM 7.9 mg/dL (8.5-10.1)
[2020-01-17] MEDS: FOLIC ACID 1 MG TABLET (FP) PO SCH (09:48)
[2020-01-17] MEDS: MULTIVITAMINS (DAILY MVI) TABLET (FP) PO SCH (09:48)
[2020-01-17] MEDS: ASPIRIN COATED 81 MG TABLET.EC PO SCH (09:48)
[2020-01-17] MEDS: BUDESONIDE/FORMETEROL FUMARATE 160/4.5 mcg INHALER IH SCH (09:48)
[2020-01-17] MEDS: NICOTINE 14 MG/24 HOURS TOPICAL PATCH TD SCH ×2 (09:48→11:50)
[2020-01-17] MEDS: ENOXAPARIN NA (PORCINE) 40 MG/0.4 ML DISP.SYRIN SQ SCH (09:49)
[2020-01-17] MEDS: THIAMINE HCL 100 MG TABLET (FP) PO SCH (09:49)
--- NOTE | 2020-01-17 11:37 | PN ---
Progress Note (short form) - Note Progress Note: PULMONARY AMBULATING IN ROOM NOT WEARING O2 WANTS TO GO HOME OFFERS NO COMPLAINTS FULLY DRESSED VSS/AFEBRILE Constitutional: Yes: No Distress, Thin Eyes: Yes: Conjunctiva Clear, EOM Intact HENT: Yes: Atraumatic, Normocephalic Neck: Yes: Supple, Trachea Midline Cardiovascular: Yes: Regular Rate and Rhythm Respiratory: Yes: Diminished, Rhonchi. No: Accessory Muscle Use, Rales, SOB, SOB on Exertion, Stridor, Tachypnea, Wheezes ...Inspection: Yes: WNL ...Clubbing: No Gastrointestinal: Yes: Normal Bowel Sounds, Soft, Tenderness, Rebound Musculoskeletal: Yes: WNL, Joint Stiffness, Joint Swelling, Muscle Pain Extremities: Yes: WNL Edema: No Peripheral Pulses WNL: Yes Integumentary: Yes: WNL Neurological: Yes: Alert ...Motor Strength: WNL Psychiatric: Yes: Alert Labs: NOTED Imaging - Results Chest X-ray: Report Reviewed, Image Reviewed Cat Scan: Report Reviewed, Image Reviewed Problem List - Problems (1) COPD (chronic obstructive pulmonary disease) Code(s): J44.9 - CHRONIC OBSTRUCTIVE PULMONARY DISEASE, UNSPECIFIED (2) Elevated ETOH level Code(s): R78.0 - FINDING OF ALCOHOL IN BLOOD Qualifiers: Blood alcohol level: level not specified Qualified Code(s): R78.0 - Finding of alcohol in blood (3) Shoulder fracture, right Code(s): S42.91XA - FRACTURE OF RIGHT SHOULDER GIRDLE, PART UNSP, INIT Qualifiers: Encounter type: subsequent encounter Fracture type: closed Fracture healing: with malunion Qualified Code(s): S42.91XP - Fracture of right shoulder girdle, part unspecified, subsequent encounter for fracture with malunion (4) Alcohol abuse Code(s): F10.10 - ALCOHOL ABUSE, UNCOMPLICATED (5) Right upper lobe consolidation Code(s): J18.1 - LOBAR PNEUMONIA, UNSPECIFIED ORGANISM (6) Severe protein-calorie malnutrition Code(s): E43 - UNSPECIFIED SEVERE PROTEIN-CALORIE MALNUTRITION (7) Shortness of breath Code(s): R06.02 - SHORTNESS OF BREATH (8) Smoker Code(s): F17.200 - NICOTINE DEPENDENCE, UNSPECIFIED, UNCOMPLICATED Assessment/Plan No smoking counseled No indication for systemic steroids BD TX PRN Will need to follow RLL opacity (Can have PET imaging if compliant) There was a previous concern for P TB in 2019. At present no active symptoms but he should follow with TON[facility] as some work up was performed in 2019. KATHLEEN planning F/U OUTPATIENT Anuj SILVERIO MD
[2020-01-17 14:07] VITALS: BP 105/60; PULSE 109; TEMP 98.6
--- NOTE | 2020-01-17 17:39 | DS ---
Physical Exam: SUBJECTIVE: Patient seen and examined at bedside. Resting in bed, no acute distress. No acute events overnight. OBJECTIVE: Vital Signs Period Temp Pulse Resp BP Sys/Newsome Pulse Ox Last 24 Hr 97.5 F-99 F 79-112 18-20 102-119/53-62 97-98 PHYSICAL EXAM GENERAL: NAD HEAD: AT/NC EYES: EOMI Sclera Clear ENT: MMM LUNGS: Scattered rhonchi HEART: RRR, S1S2 ABDOMEN: NDNT Soft EXTREMITIES: No CCE NEUROLOGICAL: Cranial nerves II through XII grossly intact. PSYCH: Normal mood, normal affect. SKIN: Warm, dry, normal turgor, no rashes or lesions noted. LABS Laboratory Results - last 24 hr 01/17/20 01/17/20 01/17/20 06:35 06:35 11:32 WBC 13.5 H RBC 4.08 Hgb 12.5 Hct 38.8 MCV 95.2 MCH 30.7 MCHC 32.3 RDW 12.7 Plt Count 247 MPV 9.2 Absolute Neuts (auto) 11.1 H Neutrophils % 82.0 Lymphocytes % 8.5 D Monocytes % 7.2 Eosinophils % 1.5 Basophils % 0.8 Nucleated RBC % 0 Sodium 130 L Potassium 5.2 H Chloride 97 L Carbon Dioxide 27 Anion Gap 7 L BUN 18.4 H Creatinine 0.7 Est GFR (CKD-EPI)AfAm 110.82 Est GFR (CKD-EPI)NonAf 95.61 POC Glucometer 254 Random Glucose 223 H Calcium 7.9 L Phosphorus 3.0 Magnesium 2.0 Total Bilirubin 0.9 AST 22 ALT 17 Alkaline Phosphatase 90 Total Protein 7.5 Albumin 3.1 L HOSPITAL COURSE: Date of Admission:01/13/20 69 y/o M PMHx of COPD (unclear if on Home O2), CVA (no residual deficits), EtOH use disorder, DM, Right proximal Humerus Fx who presented with EtOH intoxication and Chest pain. Alcohol level in ED was 118. CT Head/C-Spine negative for fracture. EKG revealed NSR, Biatrial Enlargement, LAFB, VR 97, QTc 454. Patient was commenced on a Librium protocol as well as thiamine, folate, and a MV. CT Chest was performed---> right humeral neck fracture, enlarged mediastinal lymphnodes, chronic opacities in the upper lobes, subpleural reticulation in the upper lobes and right middle lobe. CXR revealed upper lobe opacities (R>L), increased interstitial markings in the RML, and ipsilateral trachea and mediastinal deviation. Pulmonology recommended for patient to follow RLL opacity with possible PET scan. Patient left AMA. Risks Date of Discharge: 01/17/20 <Adama Nicole - Last Filed: 01/17/20 17:58> Physical Exam: SUBJECTIVE: Patient seen and examined OBJECTIVE: Vital Signs Period Temp Pulse Resp BP Sys/Newsome Pulse Ox Last 24 Hr 97.5 F-99 F 79-112 18-20 102-119/53-62 97-98 PHYSICAL EXAM GENERAL: The patient is awake, alert, and fully oriented, in no acute distress. HEAD: Normal with no signs of trauma. EYES: PERRL, extraocular movements intact, sclera anicteric, conjunctiva clear. ENT: Ears normal, nares patent, oropharynx clear without exudates, moist mucous membranes. NECK: Trachea midline, full range of motion, supple. LUNGS: Breath sounds equal, clear to auscultation bilaterally, no wheezes, no crackles, no accessory muscle use. HEART: Regular rate and rhythm, S1, S2 without murmur, rub or gallop. ABDOMEN: Soft, nontender, nondistended, normoactive bowel sounds, no guarding, no rebound, no hepatosplenomegaly, no masses. EXTREMITIES: 2+ pulses, warm, well-perfused, no edema. NEUROLOGICAL: Cranial nerves II through XII grossly intact. Normal speech, gait not observed. PSYCH: Normal mood, normal affect. SKIN: Warm, dry, normal turgor, no rashes or lesions noted. LABS Laboratory Results - last 24 hr 01/17/20 01/17/20 01/17/20 06:35 06:35 11:32 WBC 13.5 H RBC 4.08 Hgb 12.5 Hct 38.8 MCV 95.2 MCH 30.7 MCHC 32.3 RDW 12.7 Plt Count 247 MPV 9.2 Absolute Neuts (auto) 11.1 H Neutrophils % 82.0 Lymphocytes % 8.5 D Monocytes % 7.2 Eosinophils % 1.5 Basophils % 0.8 Nucleated RBC % 0 Sodium 130 L Potassium 5.2 H Chloride 97 L Carbon Dioxide 27 Anion Gap 7 L BUN 18.4 H Creatinine 0.7 Est GFR (CKD-EPI)AfAm 110.82 Est GFR (CKD-EPI)NonAf 95.61 POC Glucometer 254 Random Glucose 223 H Calcium 7.9 L Phosphorus 3.0 Magnesium 2.0 Total Bilirubin 0.9 AST 22 ALT 17 Alkaline Phosphatase 90 Total Protein 7.5 Albumin 3.1 L Minutes to complete discharge: 36 <Yoni Pennington - Last Filed: 01/17/20 18:04> Discharge Summary Problems reviewed: Yes - Home Medications Comprehensive Discharge Medication List: Ambulatory Orders Budesonide/Formeterol Fumarate [SYMBICORT 160/4.5mcg -] 2 inh IH BID 01/14/20 Sitagliptin Phos/Metformin HCl [Janumet 50-500 mg Tablet] 50 - 500 mg PO BID 01/14/20 <Adama Nicole Last Filed: 01/17/20 17:58> - Home Medications Comprehensive Discharge Medication List: Ambulatory Orders Budesonide/Formeterol Fumarate [SYMBICORT 160/4.5mcg -] 2 inh IH BID 01/14/20 Sitagliptin Phos/Metformin HCl [Janumet 50-500 mg Tablet] 50 - 500 mg PO BID 01/14/20 <Yoni Pennington - Last Filed: 01/17/20 18:04> Reason For Visit: ELEVATED BLOOD ALCOHOL LEVEL,SYNCOPE Condition: Good - Instructions Disposition: AGAINST MEDICAL ADVICE This patient is new to me today: Yes Date on this admission: 01/17/20 Emergency Visit: Yes ED Registration Date: 01/13/20 Care time: The patient presented to the Emergency Department on the above date and was hospitalized for further evaluation of their emergent condition. Critical Care patient: No - Discharge Referral Referred to [facility] Med P.C.: No <Yoni Pennington - Last Filed: 01/17/20 18:04> ATTENDING PHYSICIAN STATEMENT I saw and evaluated the patient. I reviewed the resident's note and discussed the case with the resident. I agree with the resident's findings and plan as documented. SUBJECTIVE: OBJECTIVE: ASSESSMENT AND PLAN: <Adama Nicole Last Filed: 01/17/20 17:58> Attending attestation: Patient seen and examined at bedside during my rounds. I was called back to come and reevaluate the patient as the patient wanted to leave AGAINST MEDICAL ADVICE. On exam he is alert and awake. He is oriented to person place and time. He is a regular rate and rhythm on cardiac exam. Lungs clear to auscultation bilaterally. Abdomen is soft nontender nondistended. He has moist mucous membranes. After discussion of risks of leaving AGAINST MEDICAL ADVICE without completely finishing [facility] protocol for alcohol withdrawal the patient still decided he wanted to go home. Risks discussed were including but not limited to alcohol withdrawal seizures which may lead to , operating heavy Machinery or an automobile can lead to serious injury or , Trip and falls, etc. Benefits of remaining as an inpatient included but not limited to completing withdrawal protocol and waiting for a bed at [facility] to open up so that he can try to maintain his sobriety through rehab.Despite an extensive conversation with the patient and counseling him he still wanted to leave. AGAINST MEDICAL ADVICE form filled out. Hospital course and discharge summary as per above. <Yoni Pennington - Last Filed: 01/17/20 18:04>
[2020-01-18] MEDS ORDERED: chlordiazePOXIDE HCL 10 MG CAPSULE PO ONE (05:00)
== END 2020-01-17 15:26 | disposition left against medical advice (07) | DRG 894 ==
LOC: JER 17:33 → MERGE 23:46 → JERBED 23:46 → J7W 01-14 18:57
PROVIDERS: ADMIT Internal Medicine; ATTEND Internal Medicine
DX: F10.220 Alcohol dependence with intoxication, uncomplicated (principal); E43 Unspecified severe protein-calorie malnutrition; S42.9 Fracture of shoulder girdle, part unspecified; Z68.1 Body mass index [BMI] 19.9 or less, adult; R64 Cachexia; Z86.73 Personal history of transient ischemic attack (TIA), and cerebral infarction without residual deficits; J44.9 Chronic obstructive pulmonary disease, unspecified; E86.0 Dehydration; E11.9 Type 2 diabetes mellitus without complications; R07.9 Chest pain, unspecified; R55 Syncope and collapse; Y90.5 Blood alcohol level of 100-119 mg/100 ml; R62.7 Adult failure to thrive; Z91.14 Patient's other noncompliance with medication regimen; E88.09 Other disorders of plasma-protein metabolism, not elsewhere classified; I95.9 Hypotension, unspecified; R59.0 Localized enlarged lymph nodes; Z59.0 Homelessness; Z79.84 Long term (current) use of oral hypoglycemic drugs; F17.210 Nicotine dependence, cigarettes, uncomplicated; W19.XXXD Unspecified fall, subsequent encounter
CPT/HCPCS: 36415; 70450-TC; 71045-TC-FY; 71250-TC; 72125-TC; 73030-TC-RT-FY; 73552-TC-RT-FY; 80048; 80053; 80061; 80307; 82550; 82962; 83036; 83721; 83735; 84100; 84443; 84484; 85025; 85610; 93005; 93010; 93306-TC; 97116-GP; 97161-GP; 99285-25; J0131; U0003

== ENCOUNTER 2020-01-22 15:50 | Emergency (ER) | payer OTHER ==
[2020-01-22 16:15] VITALS: TEMP 98.1; BMI 24.2
--- NOTE | 2020-01-22 16:23 | PDOC ---
History of Present Illness - General Chief Complaint: Alcohol intoxication Stated Complaint: Alcohol intoxication/Hypotensive Time Seen by Provider: 01/22/20 16:22 History Source: Patient Exam Limitations: Intoxication - History of Present Illness Initial Comments: 01/22/20 16:45 69 y/o M PMHx of COPD (unclear if on Home O2), CVA (no residual deficits), EtOH use disorder, DM, Right proximal Humerus Fx who presented with EtOH intoxication, hypotension, found on ground by EMS. Pt is slurring speech, poor historian. Denies fall or hitting head. Past History - Medical History Allergies/Adverse Reactions: Allergies Allergy/AdvReac Type Severity Reaction Status Date / Time No Known Drug Allergies Allergy Verified 01/14/20 10:35 Home Medications: Ambulatory Orders Budesonide/Formeterol Fumarate [SYMBICORT 160/4.5mcg -] 2 inh IH BID 01/14/20 Sitagliptin Phos/Metformin HCl [Janumet 50-500 mg Tablet] 50 - 500 mg PO BID 01/14/20 CVA: Yes COPD: Yes Diabetes: Yes HTN: No (hypotension) Psychiatric Problems: Yes (ETOH dependency) - Psycho-Social/Smoking History Smoking History: Unknown if ever smoked Have you smoked in the past 12 months: Yes Number of Cigarettes Smoked Daily: 10 Information on smoking cessation initiated: No 'Breaking Loose' booklet given: 01/14/20 - Substance Abuse Hx (Audit-C & DAST Scrn) How often the patient has a drink containing alcohol: 4 0r more times/wk Number of drinks the patient has on a typical day: 3 or 4 How often the patient has six or more drinks on one occasion: Daily or almost daily Score: In Men: 4 or > Positive; In Women: 3 or > Positive: 9 Screen Result (Pos requires Nsg. Audit-10AR): Positive In the last yr the pt used illegal drug/Rx for NonMed reason: No Score: Yes response is considered Positive: 0 Screen Result (Positive result requires Nsg. DAST-10): Negative Review of Systems - Review of Systems Able to Perform ROS?: No (intoxicated) *Physical Exam - Vital Signs Last Vital Signs Temp Pulse Resp BP Pulse Ox 98.1 F 104 H 16 79/37 L 94 L 01/22/20 16:10 01/22/20 16:10 01/22/20 16:10 01/22/20 16:10 01/22/20 16:10 - Physical Exam General Appearance: Yes: Nourished, Appropriately Dressed, Mild Distress HEENT: positive: SAM. negative: Scleral Icterus (R), Scleral Icterus (L) Neck: positive: Supple. negative: Tender, Rigid, Decreased range of motion (full ROM) Respiratory/Chest: positive: Lungs Clear, Normal Breath Sounds. negative: Chest Tender, Respiratory Distress, Crackles, Rales, Rhonchi, Stridor, Wheezing Cardiovascular: positive: Regular Rhythm, S1, S2, Tachycardia. negative: Murmur Gastrointestinal/Abdominal: positive: Normal Bowel Sounds, Tender (LUQ, epigastric, RUQ), Flat, Soft. negative: Distended, Guarding Musculoskeletal: negative: Vertebral Tenderness (no posterior midline tenderness) Extremity: positive: Other (moves all extremities spontaneously) Integumentary: positive: Normal Color, Dry, Warm. negative: Rash Neurologic: positive: Alert, Responsive, Disoriented (slurring speach) ED Treatment Course - LABORATORY CBC & Chemistry Diagram: 01/22/20 16:33 01/22/20 16:33 - ADDITIONAL ORDERS Additional order review: Laboratory Results 01/22/20 16:08 POC Glucometer 220 01/22/20 16:08 POC Glucometer 220 Medical Decision Making - Medical Decision Making 01/22/20 16:43 EKG completed Head/c-spine CT CT A/P CXR - no acute consolidation/infiltrates/fx --- 69 y/o M PMHx of COPD (unclear if on Home O2), CVA (no residual deficits), EtOH use disorder, DM, Right proximal Humerus Fx who presented with EtOH intoxication, hypotension, found on ground by EMS ABD pain - likely gastritis. Low concern for pancreatitis (lipase not 3x normal) vs perf. Given 2L NS, 1L banana bag, repeat BP 124/75 Dispo likely DC - pending clinically sober, stable gait - CT reads Signed out to night team Discharge - Discharge Information Problems reviewed: Yes Clinical Impression/Diagnosis: Alcohol intoxication Qualifiers: Complication of substance-induced condition: uncomplicated Qualified Code(s): F10.920 - Alcohol use, unspecified with intoxication, uncomplicated Hypotension Qualifiers: Hypotension type: unspecified hypotension type Qualified Code(s): I95.9 - Hypotension, unspecified Fall Qualifiers: Encounter type: initial encounter Qualified Code(s): W19.XXXA - Unspecified fall, initial encounter Condition: Stable - Follow up/Referral - Patient Discharge Instructions - Post Discharge Activity
[2020-01-22] MEDS ORDERED: FOLIC ACID INJECTION - 1 MG, THIAMINE HCL 100 MG, MULTIVIT INJECTION ADULT 10 ML in SOD... IVPB ONE (16:34)
[2020-01-22] MEDS ORDERED: SODIUM CHLORIDE 0.9% 500 ML INFUS.BAG IV ONE ×2 (16:34→16:49)
[2020-01-22 17:21] LABS: BASO % 0.7 % (0-2.0); HEMATOCRIT 37.9 % (35.4-49); HEMOGLOBIN 12.4 GM/dL (11.7-16.9); LYMPH % 21.6 % (8-40); MCH 30.7 pg (25.7-33.7); MCHC 32.7 g/dl (32.0-35.9); MEAN CELL VOLUME 93.9 fl (80-96); MEAN PLT VOLUME 8.4 fl (7.5-11.1); MONO % 5.5 % (3.8-10.2); NEUT % 70.2 % (42.8-82.8); PLATELET COUNT 337 K/MM3 (134-434); RBC 4.03 M/mm3 (4.00-5.60); RDW 13.2 % (11.9-15.9); WHITE BLOOD COUNT 6.5 K/mm3 (4.0-10.0)
[2020-01-22 17:28] LABS: INR 1.18 (0.83-1.09); PROTHROMBIN TIME (PATIENT) 13.9 SEC (9.7-13.0)
[2020-01-22 17:30] VITALS: PULSE 98
[2020-01-22 17:41] LABS: ALBUMIN 3.1 g/dl (3.4-5.0); BILIRUBIN,TOTAL 0.3 mg/dL (0.2-1); BLOOD UREA NITROGEN 9.3 mg/dL (7-18); CALCIUM 8.8 mg/dL (8.5-10.1); CREATININE 1.3 mg/dL (0.55-1.3); POTASSIUM 3.9 mmol/L (3.5-5.1); TOT PROT 7.6 g/dl (6.4-8.2)
[2020-01-22 17:55] VITALS: BP 115/74
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
--- NOTE | 2020-01-23 10:47 | EKG ---
Test Reason : Blood Pressure : / mmHG Vent. Rate : 102 BPM Atrial Rate : 102 BPM P-R Int : 116 ms QRS Dur : 100 ms QT Int : 346 ms P-R-T Axes : 062 -80 069 degrees QTc Int : 450 ms SINUS TACHYCARDIA POSSIBLE LEFT ATRIAL ENLARGEMENT LEFT AXIS DEVIATION ABNORMAL ECG WHEN COMPARED WITH ECG OF 25-NOV-2019 19:24, NO SIGNIFICANT CHANGE WAS FOUND Confirmed by RADHA BOGGS MD ([id number]) on 01/23/2020 10:47:19 AM Referred By: Confirmed By:RADHA BOGGS MD
== END 2020-01-22 21:49 | disposition home or self-care (01) ==
LOC: JER 15:50
PROC: 3E033GC Introduction of Other Therapeutic Substance into Peripheral Vein, Percutaneous Approach (ICD-10-PCS; principal; 2020-01-22)
DX: F10.920 Alcohol use, unspecified with intoxication, uncomplicated (principal); I95.9 Hypotension, unspecified; W19.XXXA Unspecified fall, initial encounter
CPT/HCPCS: 36415; 70450-TC; 71045-TC-FY; 72125-TC; 74177-TC; 80053; 82962; 83605; 83690; 85025; 85610; 93005; 93010; 99285-25; Q9967

== ENCOUNTER 2020-01-25 23:14 | Emergency (ER) | payer OTHER ==
[2020-01-25 23:30] VITALS: BMI 16.9
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
[2020-01-26] MEDS ORDERED: ceFAZolin SODIUM 1 GM VIAL IM ONE (01:23)
[2020-01-26 05:12] VITALS: TEMP 98.5
[2020-01-26 06:40] VITALS: BP 103/63; PULSE 90
== END 2020-01-26 06:30 | disposition short-term general hospital (02) ==
LOC: JER 23:14
DX: S92.154A Nondisplaced avulsion fracture (chip fracture) of right talus, initial encounter for closed fracture (principal)
CPT/HCPCS: 70450-TC; 72125-TC; 73030-TC-RT-FY; 73110-TC-RT-FY; 73130-TC-RT-FY; 99283-25

== ENCOUNTER 2020-06-10 16:14 | Inpatient (IN) | payer OTHER ==
[2020-06-10] MEDS ORDERED: ACETAMINOPHEN 1000 MG/100 ML VIAL (NON FORMULARY) IVPB ONE (17:31)
[2020-06-10] MEDS ORDERED: FAMOTIDINE 20 MG/50 ML IVPB 20 MG/50 ML MG IVPB ONE ×2 (17:33→18:17)
[2020-06-10 18:17] LABS: BASO % 0.9 % (0-2.0); EOS % 4.4 % (0-4.5); HEMATOCRIT 38.7 % (35.4-49); HEMOGLOBIN 12.6 GM/dL (11.7-16.9); LYMPH % 14.5 % (8-40); MCH 30.6 pg (25.7-33.7); MCHC 32.5 g/dl (32.0-35.9); MEAN CELL VOLUME 94.3 fl (80-96); MEAN PLT VOLUME 8.8 fl (7.5-11.1); MONO % 8.5 % (3.8-10.2); NEUT % 71.7 % (42.8-82.8); PLATELET COUNT 245 K/MM3 (134-434); RDW 12.6 % (11.9-15.9); WHITE BLOOD COUNT 6.8 K/mm3 (4.0-10.0)
[2020-06-10] MEDS ORDERED: ACETAMINOPHEN INJECTION 100 ML IVPB ONE (18:17)
[2020-06-10 18:32] LABS: ALBUMIN 3.4 g/dl (3.4-5.0); ANION GAP 4 MMOL/L (8-16); BLOOD UREA NITROGEN 11.2 mg/dL (7-18); CALCIUM 9.1 mg/dL (8.5-10.1); CHLORIDE 101 mmol/L (98-107); CO2 29 mmol/L (21-32); GLUCOSE,RANDOM 209 mg/dL (74-106); POTASSIUM 4.7 mmol/L (3.5-5.1); SODIUM 134 mmol/L (136-145)
[2020-06-10 18:35] LABS: CREATININE 0.7 mg/dL (0.55-1.3); SGOT/AST 23 U/L (15-37); SGPT/ALT 15 U/L (13-61)
[2020-06-10 18:37] LABS: BILIRUBIN,TOTAL 0.3 mg/dL (0.2-1); TOT PROT 7.7 g/dl (6.4-8.2)
[2020-06-10 18:38] LABS: ALK PHOS 94 U/L (45-117)
[2020-06-10 20:19] LABS: PH,URINE 6.5 (5.0-8.0); URINE APPEARANCE CLEAR; URINE BILIRUBIN NEGATIVE (NEGATIVE); URINE COLOR YELLOW; URINE GLUCOSE (UA) 3+ (NEGATIVE); URINE KETONE NEGATIVE (NEGATIVE); URINE LEUK ESTERASE NEGATIVE (NEGATIVE); URINE NITRITE NEGATIVE (NEGATIVE); URINE PROTEIN TRACE (NEGATIVE)
[2020-06-11] MEDS ORDERED: ACETAMINOPHEN 1000 MG/100 ML VIAL (NON FORMULARY) IVPB ONE (03:52)
[2020-06-11] MEDS ORDERED: ALBUTEROL SO4 0.083% IH SOL 2.5 MG/3 ML VIAL.NEB. NEB PRN (04:55)
[2020-06-11] MEDS ORDERED: FOLIC ACID INJECTION - 1 MG, THIAMINE HCL 100 MG, MULTIVIT INJECTION ADULT 10 ML in SOD... IVPB ONE (06:19)
[2020-06-11] MEDS: INSULIN SLIDING SCALE (NOVOLOG) 1 VIAL SQ SCH ×3 (06:34→17:46)
[2020-06-11 07:50] LABS: POTASSIUM 4.3 mmol/L (3.5-5.1)
[2020-06-11 07:53] LABS: CALCIUM 8.6 mg/dL (8.5-10.1)
[2020-06-11 07:54] LABS: BLOOD UREA NITROGEN 10.7 mg/dL (7-18); MAGNESIUM 2.3 mg/dL (1.8-2.4)
[2020-06-11 07:56] LABS: PHOSPHOROUS 3.4 mg/dL (2.5-4.9)
[2020-06-11 07:57] LABS: BASO % 1.2 % (0-2.0); BILIRUBIN,TOTAL 0.2 mg/dL (0.2-1); CREATININE 0.6 mg/dL (0.55-1.3); EOS % 6.9 % (0-4.5); HEMATOCRIT 37.6 % (35.4-49); MCH 29.9 pg (25.7-33.7); MCHC 31.9 g/dl (32.0-35.9); MEAN CELL VOLUME 93.9 fl (80-96); MEAN PLT VOLUME 8.9 fl (7.5-11.1); MONO % 8.9 % (3.8-10.2); PLATELET COUNT 230 K/MM3 (134-434); RBC 4.01 M/mm3 (4.00-5.60); RDW 12.9 % (11.9-15.9); WHITE BLOOD COUNT 5.9 K/mm3 (4.0-10.0)
[2020-06-11] MEDS: ALBUTEROL SO4 2.5/IPRATROPIUM 0.5 INH SOL 3 ML VIAL.NEB. NEB SCH ×4 (08:19→20:00)
[2020-06-11] MEDS: ENOXAPARIN NA (PORCINE) 40 MG/0.4 ML DISP.SYRIN SQ SCH (09:10)
[2020-06-11] MEDS: ASPIRIN 81 MG CHEWABLE TABLETS PO SCH (09:11)
[2020-06-11] MEDS: FOLIC ACID 1 MG TABLET (FP) PO SCH (09:11)
[2020-06-11] MEDS: THIAMINE HCL 100 MG TABLET (FP) PO SCH (09:11)
[2020-06-11] MEDS: MULTIVITAMINS (DAILY MVI) TABLET (FP) PO SCH (09:11)
[2020-06-12 06:45] LABS: HEMOGLOBIN 12.2 GM/dL (11.7-16.9); MCH 30.2 pg (25.7-33.7); MEAN CELL VOLUME 94.1 fl (80-96); MEAN PLT VOLUME 8.6 fl (7.5-11.1); PLATELET COUNT 235 K/MM3 (134-434); RBC 4.04 M/mm3 (4.00-5.60); RDW 12.6 % (11.9-15.9); WHITE BLOOD COUNT 6.1 K/mm3 (4.0-10.0)
[2020-06-12] MEDS: INSULIN SLIDING SCALE (NOVOLOG) 1 VIAL SQ SCH ×3 (07:10→18:00)
[2020-06-12 07:22] LABS: POTASSIUM 4.2 mmol/L (3.5-5.1)
[2020-06-12 07:31] LABS: BLOOD UREA NITROGEN 15.2 mg/dL (7-18); CALCIUM 8.6 mg/dL (8.5-10.1)
[2020-06-12 07:34] LABS: CREATININE 0.7 mg/dL (0.55-1.3)
[2020-06-12] MEDS ORDERED: ACETAMINOPHEN 325 MG TABLET (FP) PO ONE (09:21)
[2020-06-12] MEDS: ALBUTEROL SO4 2.5/IPRATROPIUM 0.5 INH SOL 3 ML VIAL.NEB. NEB SCH ×2 (09:58→11:47)
[2020-06-12] MEDS: MULTIVITAMINS (DAILY MVI) TABLET (FP) PO SCH (09:59)
[2020-06-12] MEDS: ASPIRIN 81 MG CHEWABLE TABLETS PO SCH (09:59)
[2020-06-12] MEDS: ENOXAPARIN NA (PORCINE) 40 MG/0.4 ML DISP.SYRIN SQ SCH (09:59)
[2020-06-12] MEDS: FOLIC ACID 1 MG TABLET (FP) PO SCH (09:59)
[2020-06-12] MEDS: THIAMINE HCL 100 MG TABLET (FP) PO SCH (10:00)
[2020-06-13] MEDS ORDERED: ACETAMINOPHEN 325 MG TABLET (FP) PO ONE (02:06)
[2020-06-13] MEDS: INSULIN SLIDING SCALE (NOVOLOG) 1 VIAL SQ SCH ×6 (06:18→22:36)
[2020-06-13] MEDS: ALBUTEROL SO4 2.5/IPRATROPIUM 0.5 INH SOL 3 ML VIAL.NEB. NEB SCH ×4 (08:45→20:19)
[2020-06-13 09:01] LABS: HEMATOCRIT 40.7 % (35.4-49); HEMOGLOBIN 13.4 GM/dL (11.7-16.9); MEAN CELL VOLUME 94.1 fl (80-96); MEAN PLT VOLUME 8.5 fl (7.5-11.1); PLATELET COUNT 267 K/MM3 (134-434); RBC 4.33 M/mm3 (4.00-5.60); RDW 12.4 % (11.9-15.9); WHITE BLOOD COUNT 7.4 K/mm3 (4.0-10.0)
[2020-06-13 09:29] LABS: POTASSIUM 3.8 mmol/L (3.5-5.1)
[2020-06-13 09:31] LABS: BLOOD UREA NITROGEN 18.1 mg/dL (7-18); CALCIUM 9.2 mg/dL (8.5-10.1)
[2020-06-13 09:35] LABS: CREATININE 0.7 mg/dL (0.55-1.3)
[2020-06-13] MEDS: MULTIVITAMINS (DAILY MVI) TABLET (FP) PO SCH (09:44)
[2020-06-13] MEDS: ASPIRIN 81 MG CHEWABLE TABLETS PO SCH (09:44)
[2020-06-13] MEDS: THIAMINE HCL 100 MG TABLET (FP) PO SCH (09:44)
[2020-06-13] MEDS: FOLIC ACID 1 MG TABLET (FP) PO SCH (09:44)
[2020-06-13] MEDS: ENOXAPARIN NA (PORCINE) 40 MG/0.4 ML DISP.SYRIN SQ SCH (09:44)
[2020-06-13 10:41] VITALS: BMI 16.6
[2020-06-13] MEDS ORDERED: methylPREDNISolone NA SUCC 40 MG/1 ML VIAL IVPUSH SCH (18:00)
[2020-06-13] MEDS ORDERED: IBUPROFEN 200 MG TABLET PO ONE (18:13)
[2020-06-14] MEDS: methylPREDNISolone NA SUCC 40 MG/1 ML VIAL IVPUSH SCH ×3 (01:29→17:01)
[2020-06-14] MEDS: INSULIN SLIDING SCALE (NOVOLOG) 1 VIAL SQ SCH ×4 (06:54→21:26)
[2020-06-14] MEDS ORDERED: INSULIN (NOVOLOG) ASPART 100 UNITS/ML 10ML VIAL ONE ×2 (06:57→10:41)
[2020-06-14 07:20] LABS: HEMATOCRIT 42.3 % (35.4-49); HEMOGLOBIN 13.6 GM/dL (11.7-16.9); MCHC 32.1 g/dl (32.0-35.9); MEAN CELL VOLUME 93.7 fl (80-96); MEAN PLT VOLUME 8.9 fl (7.5-11.1); PLATELET COUNT 265 K/MM3 (134-434); RBC 4.51 M/mm3 (4.00-5.60); RDW 12.7 % (11.9-15.9); WHITE BLOOD COUNT 11.1 K/mm3 (4.0-10.0)
[2020-06-14 07:50] LABS: POTASSIUM 4.9 mmol/L (3.5-5.1)
[2020-06-14 07:51] LABS: BLOOD UREA NITROGEN 22.1 mg/dL (7-18); CALCIUM 9.2 mg/dL (8.5-10.1)
[2020-06-14 07:55] LABS: CREATININE 0.8 mg/dL (0.55-1.3)
[2020-06-14] MEDS: ALBUTEROL SO4 2.5/IPRATROPIUM 0.5 INH SOL 3 ML VIAL.NEB. NEB SCH ×4 (08:30→19:40)
[2020-06-14] MEDS: ASPIRIN 81 MG CHEWABLE TABLETS PO SCH (10:19)
[2020-06-14] MEDS: FOLIC ACID 1 MG TABLET (FP) PO SCH (10:19)
[2020-06-14] MEDS: ENOXAPARIN NA (PORCINE) 40 MG/0.4 ML DISP.SYRIN SQ SCH (10:19)
[2020-06-14] MEDS: THIAMINE HCL 100 MG TABLET (FP) PO SCH (10:20)
[2020-06-14] MEDS: MULTIVITAMINS (DAILY MVI) TABLET (FP) PO SCH (10:20)
[2020-06-14] MEDS ORDERED: INSULIN (LEVEMIR) 100 UNITS/ML UNITS SQ ONE (13:14)
[2020-06-14] MEDS ORDERED: ACETAMINOPHEN 325 MG TABLET (FP) PO ONE (14:09)
[2020-06-14] MEDS ORDERED: SODIUM CHLORIDE 1,000 ML IV SCH (16:15)
[2020-06-14] MEDS ORDERED: ONDANSETRON 4 MG/2 ML VIAL IVPUSH ONE (21:02)
[2020-06-14] MEDS ORDERED: ACETAMINOPHEN 325 MG TABLET (FP) PO PRN ×2 (21:17→21:25)
[2020-06-15] MEDS: methylPREDNISolone NA SUCC 40 MG/1 ML VIAL IVPUSH SCH ×2 (01:26→09:41)
[2020-06-15] MEDS: INSULIN SLIDING SCALE (NOVOLOG) 1 VIAL SQ SCH ×2 (06:04→11:37)
[2020-06-15] MEDS: ALBUTEROL SO4 2.5/IPRATROPIUM 0.5 INH SOL 3 ML VIAL.NEB. NEB SCH ×2 (08:27→12:11)
[2020-06-15 08:38] LABS: HEMOGLOBIN 13.1 GM/dL (11.7-16.9); MCH 30.9 pg (25.7-33.7); MCHC 32.8 g/dl (32.0-35.9); MEAN CELL VOLUME 94.5 fl (80-96); MEAN PLT VOLUME 9.1 fl (7.5-11.1); PLATELET COUNT 272 K/MM3 (134-434); RBC 4.24 M/mm3 (4.00-5.60); RDW 12.6 % (11.9-15.9); WHITE BLOOD COUNT 18.9 K/mm3 (4.0-10.0)
[2020-06-15 08:55] LABS: POTASSIUM 4.2 mmol/L (3.5-5.1)
[2020-06-15 08:59] LABS: BLOOD UREA NITROGEN 19.6 mg/dL (7-18)
[2020-06-15 09:02] LABS: CREATININE 0.8 mg/dL (0.55-1.3)
[2020-06-15] MEDS ORDERED: PT OWN MED DRAWER 7, Y5N ONE (09:38)
[2020-06-15] MEDS: ASPIRIN 81 MG CHEWABLE TABLETS PO SCH (09:40)
[2020-06-15] MEDS: FOLIC ACID 1 MG TABLET (FP) PO SCH (09:40)
[2020-06-15] MEDS: MULTIVITAMINS (DAILY MVI) TABLET (FP) PO SCH (09:40)
[2020-06-15] MEDS: THIAMINE HCL 100 MG TABLET (FP) PO SCH (09:41)
[2020-06-15] MEDS: ENOXAPARIN NA (PORCINE) 40 MG/0.4 ML DISP.SYRIN SQ SCH (09:42)
[2020-06-15] MEDS ORDERED: predniSONE 20 MG TABLET (UD) PO SCH (11:30)
[2020-06-15 12:14] VITALS: BP 149/85; PULSE 84; TEMP 97.8
[2020-06-15] MEDS ORDERED: ATORVASTATIN CA 20 MG TABLET (FP) PO SCH (22:00)
== END 2020-06-15 14:31 | DRG 190 ==
LOC: JER 16:14 → J4W 06-11 01:22 → J8W 06-13 18:21
PROVIDERS: ADMIT Internal Medicine; ATTEND Internal Medicine
DX: J44.1 Chronic obstructive pulmonary disease with (acute) exacerbation (principal); E43 Unspecified severe protein-calorie malnutrition; Z68.1 Body mass index [BMI] 19.9 or less, adult; G95.9 Disease of spinal cord, unspecified; E87.1 Hypo-osmolality and hyponatremia; E11.9 Type 2 diabetes mellitus without complications; R59.1 Generalized enlarged lymph nodes; J98.4 Other disorders of lung; F10.229 Alcohol dependence with intoxication, unspecified; I45.10 Unspecified right bundle-branch block; E11.65 Type 2 diabetes mellitus with hyperglycemia; F17.210 Nicotine dependence, cigarettes, uncomplicated; R47.81 Slurred speech; R59.0 Localized enlarged lymph nodes; M79.671 Pain in right foot; Z86.73 Personal history of transient ischemic attack (TIA), and cerebral infarction without residual deficits; Z59.0 Homelessness
CPT/HCPCS: 36415; 70450-TC; 71045-TC-FY; 71046-TC-FY; 71250-TC; 72125-TC; 73610-TC-RT-FY; 73630-TC-RT-FY; 80048; 80053; 80061; 81003; 82550; 82962; 83036; 83721; 83735; 84100; 84443; 84484; 85025; 85027; 85379; 87086; 93005; 93010; 94640; 97116-GP; 97161-GP; 99285-25; C9803; J0131; U0003

== ENCOUNTER 2021-04-20 20:42 | Emergency (ER) | payer OTHER ==
[2021-04-20 20:51] VITALS: TEMP 98.8; BMI 17.3
[2021-04-20] MEDS ORDERED: ACETAMINOPHEN 325 MG TABLET (FP) PO ONE (21:22)
[2021-04-20] MEDS ORDERED: LIDOCAINE 5% TOPICAL PATCH TP ONE (21:22)
[2021-04-20] MEDS ORDERED: ALBUTEROL SO4 HFA INHALER IH PRN (21:24)
[2021-04-20] MEDS ORDERED: LIDOCAINE PATCH REMOVAL MC SCH (22:00)
[2021-04-20] MEDS ORDERED: ACETAMINOPHEN 325 MG TABLET (FP) ONE (22:50)
[2021-04-20] MEDS ORDERED: ALBUTEROL SO4 HFA INHALER IH ONE (22:51)
[2021-04-20] MEDS ORDERED: LIDOCAINE 5% TOPICAL PATCH ONE (22:51)
[2021-04-20 23:34] LABS: BASO % 0.9 % (0-2.0); EOS % 10.7 % (0-4.5); HEMATOCRIT 41.8 % (35.4-49); HEMOGLOBIN 13.9 GM/dL (11.7-16.9); LYMPH % 18.2 % (8-40); MCH 30.3 pg (25.7-33.7); MCHC 33.3 g/dl (32.0-35.9); MEAN CELL VOLUME 90.9 fl (80-96); MEAN PLT VOLUME 9.1 fl (7.5-11.1); MONO % 8.7 % (3.8-10.2); NEUT % 61.5 % (42.8-82.8); PLATELET COUNT 250 10^3/uL (134-434); RDW 13.6 % (11.9-15.9); WHITE BLOOD COUNT 6.3 K/mm3 (4.0-10.0)
[2021-04-20 23:51] LABS: BLOOD UREA NITROGEN 15.9 mg/dL (7-18)
[2021-04-20 23:53] LABS: CALCIUM 9.3 mg/dL (8.5-10.1)
[2021-04-20 23:55] LABS: CREATININE 0.8 mg/dL (0.55-1.3)
[2021-04-20 23:56] LABS: BILIRUBIN,TOTAL 0.5 mg/dL (0.2-1); N-TERMINAL BNP 127.8 pg/ml (5-125); TOT PROT 7.7 g/dl (6.4-8.2)
[2021-04-21 00:44] VITALS: BP 98/64; PULSE 85
== END 2021-04-21 06:04 | disposition home or self-care (01) ==
LOC: JER 20:42
DX: M54.5 Low back pain (principal)
CPT/HCPCS: 36415; 71046-TC-FY; 80053; 83880; 84484; 85025; 93005; 93010; 99285-25

== ENCOUNTER 2021-05-25 11:38 | Inpatient (IN) | payer OTHER ==
[2021-05-25] MEDS ORDERED: LACTATED RINGERS SOLUTION 1000 ML INFUS.BAG IV ONE (13:33)
[2021-05-25] MEDS ORDERED: ACETAMINOPHEN 1000 MG/100 ML VIAL IVPB ONE (13:33)
[2021-05-25] MEDS ORDERED: ACETAMINOPHEN INJECTION 100 ML IVPB ONE (13:47)
[2021-05-25 15:03] LABS: BASO % 0.7 % (0-2.0); EOS % 7.8 % (0-4.5); HEMATOCRIT 42.8 % (35.4-49); HEMOGLOBIN 14.3 GM/dL (11.7-16.9); LYMPH % 13.7 % (8-40); MCH 30.1 pg (25.7-33.7); MCHC 33.5 g/dl (32.0-35.9); MEAN PLT VOLUME 8.5 fl (7.5-11.1); MONO % 6.7 % (3.8-10.2); NEUT % 71.1 % (42.8-82.8); PLATELET COUNT 290 10^3/uL (134-434); RBC 4.76 M/mm3 (4.00-5.60); RDW 13.6 % (11.9-15.9); WHITE BLOOD COUNT 7.7 K/mm3 (4.0-10.0)
[2021-05-25 15:18] LABS: CHLORIDE 101 mmol/L (98-107); SODIUM 134 mmol/L (136-145)
[2021-05-25 15:20] LABS: ALBUMIN 3.2 g/dl (3.4-5.0); ANION GAP 6 MMOL/L (8-16); BLOOD UREA NITROGEN 9.8 mg/dL (7-18); CALCIUM 9.1 mg/dL (8.5-10.1); CO2 28 mmol/L (21-32)
[2021-05-25 15:21] LABS: GLUCOSE,RANDOM 347 mg/dL (74-106)
[2021-05-25 15:23] LABS: SGPT/ALT 14 U/L (13-61)
[2021-05-25 15:24] LABS: BILIRUBIN,TOTAL 0.5 mg/dL (0.2-1); CREATININE 0.8 mg/dL (0.55-1.3); MAGNESIUM 2.1 mg/dL (1.8-2.4); SGOT/AST 27 U/L (15-37)
[2021-05-25 15:26] LABS: ALK PHOS 126 U/L (45-117)
[2021-05-25] MEDS ORDERED: CEFTRIAXONE 1,000 MG in DEXTROSE 5%-WATER - 50 ML IVPB ONE (16:52)
[2021-05-25] MEDS ORDERED: AZITHROMYCIN IVPB 500 MG in DEXTROSE 5%-WATER - 250 ML IVPB ONE (16:52)
[2021-05-25] MEDS ORDERED: ALBUTEROL SO4 0.083% IH SOL 2.5 MG/3 ML VIAL.NEB. NEB PRN (17:06)
[2021-05-25] MEDS ORDERED: SODIUM CHLORIDE 500 ML IV STA (17:07)
[2021-05-25] MEDS ORDERED: CEFTRIAXONE 1 GM/50 ML BAG ONE (17:30)
[2021-05-25] MEDS ORDERED: AZITHROMYCIN IVPB 500 MG/250 ML BAG IVPB ONE (18:29)
[2021-05-25 19:35] LABS: PH,URINE 6.5 (5.0-8.0); URINE APPEARANCE CLEAR; URINE BILIRUBIN NEGATIVE (NEGATIVE); URINE COLOR YELLOW; URINE GLUCOSE (UA) 3+ (NEGATIVE); URINE KETONE NEGATIVE (NEGATIVE); URINE LEUK ESTERASE NEGATIVE (NEGATIVE); URINE NITRITE NEGATIVE (NEGATIVE); URINE PROTEIN NEGATIVE (NEGATIVE)
[2021-05-25 20:04] LABS: METHADONE, UR NEGATIVE (NEGATIVE); OPIATES, URI NEGATIVE (NEGATIVE); PHENCYCLIDINE,URINE NEGATIVE (NEGATIVE)
[2021-05-25 20:05] LABS: COCAINE, UR NEGATIVE (NEGATIVE); URINE AMPHETAMINES NEGATIVE (NEGATIVE); URINE BARBITURATES NEGATIVE (NEGATIVE); URINE BENZODIAZEPINES NEGATIVE (NEGATIVE)
[2021-05-25] MEDS: ACETAMINOPHEN 325 MG TABLET (FP) PO PRN (22:54)
[2021-05-25] MEDS: INSULIN SLIDING SCALE (NOVOLOG) 1 VIAL SQ SCH (22:55)
[2021-05-25] MEDS ORDERED: SODIUM CHLORIDE 500 ML IV SCH (23:00)
[2021-05-26] MEDS: INSULIN SLIDING SCALE (NOVOLOG) 1 VIAL SQ SCH ×5 (06:59→22:23)
[2021-05-26] MEDS ORDERED: cefTRIAXone SODIUM 1 GM VIAL ONE (09:02)
[2021-05-26] MEDS ORDERED: DEXTROSE 5%-WATER - 50 ML IVPB ONE (09:02)
[2021-05-26] MEDS: CEFTRIAXONE 1 GM in DEXTROSE 5%-WATER - 50 ML IVPB SCH (09:10)
[2021-05-26] MEDS: ENOXAPARIN NA (PORCINE) 40 MG/0.4 ML DISP.SYRIN SQ SCH (09:10)
[2021-05-26 09:12] LABS: HEMATOCRIT 35.7 % (35.4-49); HEMOGLOBIN 11.8 GM/dL (11.7-16.9); MCH 29.7 pg (25.7-33.7); MCHC 33.1 g/dl (32.0-35.9); MEAN CELL VOLUME 89.7 fl (80-96); MEAN PLT VOLUME 8.2 fl (7.5-11.1); PLATELET COUNT 222 10^3/uL (134-434); RBC 3.98 M/mm3 (4.00-5.60); RDW 13.1 % (11.9-15.9)
[2021-05-26] MEDS: AZITHROMYCIN IVPB 500 MG/250 ML BAG IVPB SCH (09:12)
[2021-05-26] MEDS: ACETAMINOPHEN 325 MG TABLET (FP) PO PRN (09:23)
[2021-05-26 09:40] LABS: CALCIUM 8.5 mg/dL (8.5-10.1)
[2021-05-26 09:41] LABS: BLOOD UREA NITROGEN 14.6 mg/dL (7-18)
[2021-05-26 09:44] LABS: CREATININE 0.8 mg/dL (0.55-1.3)
[2021-05-26 09:45] LABS: BILIRUBIN,TOTAL 0.4 mg/dL (0.2-1)
[2021-05-26 09:56] LABS: ALBUMIN 2.4 g/dl (3.4-5.0); TOT PROT 6.5 g/dl (6.4-8.2)
[2021-05-26 09:57] LABS: MAGNESIUM 1.8 mg/dL (1.8-2.4)
[2021-05-26] MEDS ORDERED: PNEUMOC 13-VAL CONJ-DIP CRM/PF 0.5 ML DISP.SYRIN IM ONE (11:00)
[2021-05-26 12:06] VITALS: BMI 16.9
[2021-05-27] MEDS: INSULIN SLIDING SCALE (NOVOLOG) 1 VIAL SQ SCH ×3 (06:09→17:14)
[2021-05-27] MEDS ORDERED: INSULIN (NOVOLOG) ASPART 100 UNITS/ML 10ML VIAL ONE (06:42)
[2021-05-27] MEDS: AZITHROMYCIN IVPB 500 MG/250 ML BAG IVPB SCH (11:01)
[2021-05-27] MEDS: INSULIN (LEVEMIR) 100 UNITS/ML UNITS SQ SCH ×2 (11:01→21:54)
[2021-05-27] MEDS: ENOXAPARIN NA (PORCINE) 40 MG/0.4 ML DISP.SYRIN SQ SCH (11:02)
[2021-05-27] MEDS: MULTIVITAMINS (DAILY MVI) TABLET (FP) PO SCH (11:02)
[2021-05-27 13:16] LABS: HIV INTERPRETATION NEGATIVE (NEGATIVE)
[2021-05-27] MEDS ORDERED: cefTRIAXone SODIUM 1 GM VIAL ONE (14:45)
[2021-05-27] MEDS ORDERED: DEXTROSE 5%-WATER - 50 ML IVPB ONE (14:45)
[2021-05-27] MEDS: CEFTRIAXONE 1 GM in DEXTROSE 5%-WATER - 50 ML IVPB SCH (14:54)
[2021-05-27] MEDS: ACETAMINOPHEN 325 MG TABLET (FP) PO PRN (21:43)
[2021-05-28] MEDS: ACETAMINOPHEN 325 MG TABLET (FP) PO PRN ×3 (03:35→21:16)
[2021-05-28] MEDS: INSULIN SLIDING SCALE (NOVOLOG) 1 VIAL SQ SCH ×3 (06:30→18:56)
[2021-05-28] MEDS ORDERED: INSULIN (NOVOLOG) ASPART 100 UNITS/ML 10ML VIAL ONE (06:38)
[2021-05-28 09:06] LABS: BASO % 0.8 % (0-2.0); EOS % 4.6 % (0-4.5); HEMATOCRIT 39.7 % (35.4-49); HEMOGLOBIN 13.3 GM/dL (11.7-16.9); LYMPH % 29.7 % (8-40); MCHC 33.4 g/dl (32.0-35.9); MEAN CELL VOLUME 89.8 fl (80-96); MEAN PLT VOLUME 8.6 fl (7.5-11.1); MONO % 8.5 % (3.8-10.2); NEUT % 56.4 % (42.8-82.8); PLATELET COUNT 269 10^3/uL (134-434); RBC 4.42 M/mm3 (4.00-5.60); RDW 12.8 % (11.9-15.9); WHITE BLOOD COUNT 6.1 K/mm3 (4.0-10.0)
[2021-05-28 09:25] LABS: CHLORIDE 104 mmol/L (98-107); SODIUM 136 mmol/L (136-145)
[2021-05-28 09:32] LABS: ALBUMIN 2.9 g/dl (3.4-5.0); ANION GAP 4 MMOL/L (8-16); BLOOD UREA NITROGEN 20.7 mg/dL (7-18); CALCIUM 8.7 mg/dL (8.5-10.1); CO2 28 mmol/L (21-32); MAGNESIUM 2.1 mg/dL (1.8-2.4)
[2021-05-28 09:35] LABS: CREATININE 0.9 mg/dL (0.55-1.3); SGOT/AST 13 U/L (15-37); SGPT/ALT 11 U/L (13-61)
[2021-05-28 09:36] LABS: BILIRUBIN,TOTAL 0.7 mg/dL (0.2-1); TOT PROT 7.8 g/dl (6.4-8.2)
[2021-05-28 09:37] LABS: ALK PHOS 83 U/L (45-117)
[2021-05-28 09:41] LABS: GLUCOSE,RANDOM 47 mg/dL (74-106)
[2021-05-28] MEDS ORDERED: cefTRIAXone SODIUM 1 GM VIAL ONE (10:29)
[2021-05-28] MEDS ORDERED: DEXTROSE 5%-WATER - 50 ML IVPB ONE (10:29)
[2021-05-28] MEDS: AZITHROMYCIN IVPB 500 MG/250 ML BAG IVPB SCH (10:42)
[2021-05-28] MEDS: CEFTRIAXONE 1 GM in DEXTROSE 5%-WATER - 50 ML IVPB SCH (10:43)
[2021-05-28] MEDS: MULTIVITAMINS (DAILY MVI) TABLET (FP) PO SCH (10:43)
[2021-05-28] MEDS: ENOXAPARIN NA (PORCINE) 40 MG/0.4 ML DISP.SYRIN SQ SCH (10:43)
[2021-05-28] MEDS: INSULIN (LEVEMIR) 100 UNITS/ML UNITS SQ SCH ×2 (10:53→22:53)
[2021-05-28] MEDS ORDERED: ONDANSETRON 4 MG/2 ML VIAL IVPUSH ONE (21:44)
[2021-05-29] MEDS ORDERED: DEXTROSE 50%-WATER 25 GM/50 ML DISP.SYRIN ONE (01:04)
[2021-05-29] MEDS ORDERED: DEXTROSE 50%-WATER - 25 GM/50 ML VIAL IVPUSH ONE (01:48)
[2021-05-29] MEDS: INSULIN SLIDING SCALE (NOVOLOG) 1 VIAL SQ SCH ×3 (06:13→16:44)
[2021-05-29] MEDS ORDERED: INSULIN (LEVEMIR) 100 UNITS/ML UNITS SQ ONE (09:02)
[2021-05-29 09:04] LABS: EOS % 1.8 % (0-4.5); HEMATOCRIT 37.4 % (35.4-49); HEMOGLOBIN 12.6 GM/dL (11.7-16.9); LYMPH % 13.8 % (8-40); MCH 30.5 pg (25.7-33.7); MCHC 33.8 g/dl (32.0-35.9); MEAN CELL VOLUME 90.4 fl (80-96); MEAN PLT VOLUME 8.8 fl (7.5-11.1); MONO % 7.3 % (3.8-10.2); NEUT % 76.1 % (42.8-82.8); PLATELET COUNT 278 10^3/uL (134-434); RBC 4.14 M/mm3 (4.00-5.60); RDW 12.5 % (11.9-15.9); WHITE BLOOD COUNT 7.2 K/mm3 (4.0-10.0)
[2021-05-29] MEDS: INSULIN (LEVEMIR) 100 UNITS/ML UNITS SQ SCH ×2 (09:25→22:08)
[2021-05-29] MEDS: AZITHROMYCIN IVPB 500 MG/250 ML BAG IVPB SCH (09:26)
[2021-05-29] MEDS: ENOXAPARIN NA (PORCINE) 40 MG/0.4 ML DISP.SYRIN SQ SCH (09:26)
[2021-05-29] MEDS: MULTIVITAMINS (DAILY MVI) TABLET (FP) PO SCH (09:28)
[2021-05-29 09:33] LABS: CALCIUM 8.8 mg/dL (8.5-10.1)
[2021-05-29 09:34] LABS: ALBUMIN 2.8 g/dl (3.4-5.0); BLOOD UREA NITROGEN 11.5 mg/dL (7-18)
[2021-05-29 09:36] LABS: CREATININE 0.7 mg/dL (0.55-1.3)
[2021-05-29 09:38] LABS: BILIRUBIN,TOTAL 0.8 mg/dL (0.2-1); TOT PROT 7.2 g/dl (6.4-8.2)
[2021-05-29 09:39] LABS: MAGNESIUM 1.9 mg/dL (1.8-2.4)
[2021-05-29] MEDS ORDERED: cefTRIAXone SODIUM 1 GM VIAL ONE (11:07)
[2021-05-29] MEDS ORDERED: DEXTROSE 5%-WATER - 50 ML IVPB ONE (11:07)
[2021-05-29] MEDS: CEFTRIAXONE 1 GM in DEXTROSE 5%-WATER - 50 ML IVPB SCH (11:36)
[2021-05-29] MEDS: ACETAMINOPHEN 325 MG TABLET (FP) PO PRN (22:05)
[2021-05-30] MEDS ORDERED: INSULIN (NOVOLOG) ASPART 100 UNITS/ML 10ML VIAL ONE (06:09)
[2021-05-30] MEDS: INSULIN SLIDING SCALE (NOVOLOG) 1 VIAL SQ SCH ×3 (06:24→17:20)
[2021-05-30 08:14] LABS: HEMATOCRIT 36.4 % (35.4-49); HEMOGLOBIN 12.4 GM/dL (11.7-16.9); LYMPH % 22.5 % (8-40); MCH 30.4 pg (25.7-33.7); MCHC 34.1 g/dl (32.0-35.9); MEAN CELL VOLUME 89.1 fl (80-96); MEAN PLT VOLUME 8.5 fl (7.5-11.1); MONO % 5.5 % (3.8-10.2); PLATELET COUNT 272 10^3/uL (134-434); RBC 4.09 M/mm3 (4.00-5.60); RDW 12.8 % (11.9-15.9); WHITE BLOOD COUNT 6.1 K/mm3 (4.0-10.0)
[2021-05-30 08:33] LABS: CALCIUM 8.7 mg/dL (8.5-10.1)
[2021-05-30 08:34] LABS: ALBUMIN 2.8 g/dl (3.4-5.0); BLOOD UREA NITROGEN 17.9 mg/dL (7-18); MAGNESIUM 2.1 mg/dL (1.8-2.4)
[2021-05-30 08:37] LABS: CREATININE 0.9 mg/dL (0.55-1.3)
[2021-05-30 08:38] LABS: BILIRUBIN,TOTAL 0.6 mg/dL (0.2-1); TOT PROT 7.2 g/dl (6.4-8.2)
[2021-05-30] MEDS: INSULIN (LEVEMIR) 100 UNITS/ML UNITS SQ SCH ×2 (09:29→22:51)
[2021-05-30] MEDS: AZITHROMYCIN IVPB 500 MG/250 ML BAG IVPB SCH (09:30)
[2021-05-30] MEDS: ENOXAPARIN NA (PORCINE) 40 MG/0.4 ML DISP.SYRIN SQ SCH (09:30)
[2021-05-30] MEDS: MULTIVITAMINS (DAILY MVI) TABLET (FP) PO SCH (09:30)
[2021-05-30] MEDS: ACETAMINOPHEN 325 MG TABLET (FP) PO PRN ×2 (09:32→22:51)
[2021-05-30] MEDS ORDERED: cefTRIAXone SODIUM 1 GM VIAL ONE (11:49)
[2021-05-30] MEDS ORDERED: DEXTROSE 5%-WATER - 50 ML IVPB ONE (11:49)
[2021-05-30] MEDS: CEFTRIAXONE 1 GM in DEXTROSE 5%-WATER - 50 ML IVPB SCH (11:53)
[2021-05-31] MEDS: ACETAMINOPHEN 325 MG TABLET (FP) PO PRN ×2 (04:03→09:35)
[2021-05-31] MEDS: INSULIN (LEVEMIR) 100 UNITS/ML UNITS SQ SCH ×2 (06:22→21:32)
[2021-05-31] MEDS: INSULIN SLIDING SCALE (NOVOLOG) 1 VIAL SQ SCH ×3 (06:22→17:45)
[2021-05-31] MEDS ORDERED: INSULIN (NOVOLOG) ASPART 100 UNITS/ML 10ML VIAL ONE ×2 (07:49→17:58)
[2021-05-31] MEDS ORDERED: INSULIN (LEVEMIR) 100 UNITS/ML UNITS SQ ONE (07:49)
[2021-05-31] MEDS ORDERED: PT OWN MED DRAWER 7, Y5N ONE (07:50)
[2021-05-31] MEDS: AMOX TR/POT CLAV 875MG/125MG TABLETS (FP) PO SCH ×2 (09:35→17:46)
[2021-05-31] MEDS: MULTIVITAMINS (DAILY MVI) TABLET (FP) PO SCH (09:35)
[2021-05-31] MEDS: ENOXAPARIN NA (PORCINE) 40 MG/0.4 ML DISP.SYRIN SQ SCH (09:35)
[2021-06-01] MEDS: ACETAMINOPHEN 325 MG TABLET (FP) PO PRN ×2 (00:27→11:38)
[2021-06-01 06:27] VITALS: TEMP 97.5
[2021-06-01] MEDS: INSULIN (LEVEMIR) 100 UNITS/ML UNITS SQ SCH (06:28)
[2021-06-01] MEDS: INSULIN SLIDING SCALE (NOVOLOG) 1 VIAL SQ SCH ×2 (06:28→12:20)
[2021-06-01] MEDS: AMOX TR/POT CLAV 875MG/125MG TABLETS (FP) PO SCH (09:30)
[2021-06-01] MEDS: ENOXAPARIN NA (PORCINE) 40 MG/0.4 ML DISP.SYRIN SQ SCH (09:30)
[2021-06-01] MEDS: MULTIVITAMINS (DAILY MVI) TABLET (FP) PO SCH (09:30)
[2021-06-01 14:24] VITALS: BP 100/70; PULSE 85
== END 2021-06-01 15:07 | DRG 194 ==
LOC: JER 11:38 → JERBED 15:17 → MERGE 15:17 → J7W 20:21 → OBSVTOIN 05-30 06:45
PROVIDERS: ADMIT Internal Medicine; ATTEND Family Medicine
DX: J18.9 Pneumonia, unspecified organism (principal); R64 Cachexia; Z68.1 Body mass index [BMI] 19.9 or less, adult; J44.9 Chronic obstructive pulmonary disease, unspecified; E11.65 Type 2 diabetes mellitus with hyperglycemia; E11.40 Type 2 diabetes mellitus with diabetic neuropathy, unspecified; F10.10 Alcohol abuse, uncomplicated; F17.210 Nicotine dependence, cigarettes, uncomplicated; Z59.00 Homelessness unspecified
CPT/HCPCS: 36415; 71045-TC-FY; 71046-TC-FY; 71250-TC; 80053; 80307; 81003; 82962; 83036; 83735; 84484; 85025; 85027; 87070; 87077; 87086; 87205; 87389; 87899; 90670; 93005; 93010; 97116-GP; 97161-GP; 99285-25; C9803; G0378; J0131; U0003; U0005

== ENCOUNTER 2022-06-20 18:07 | Inpatient (IN) | payer OTHER ==
[2022-06-20] MEDS ORDERED: ONDANSETRON 4 MG/2 ML VIAL IVPUSH ONE (19:40)
[2022-06-20] MEDS ORDERED: SODIUM CHLORIDE 0.9% 1000 ML INFUS.BAG IV ONE ×2 (19:40→21:55)
[2022-06-20 19:57] LABS: HEMATOCRIT 46.9 % (35.4-49); HEMOGLOBIN 15.8 G/dL (11.7-16.9); MCH 30.5 pg (25.7-33.7); MCHC 33.6 g/dl (32.0-35.9); MEAN CELL VOLUME 90.9 fl (80-96); MEAN PLT VOLUME 8.6 fl (7.5-11.1); PLATELET COUNT 328.6 10^3/uL (134-434); RBC 5.16 10^6/uL (4.00-5.60); RDW 13.6 % (11.9-15.9)
[2022-06-20 20:13] LABS: ALBUMIN 3.6 g/dl (3.4-5.0); CALCIUM 9.7 mg/dl (8.5-10); CREATININE 0.8 mg/dl (0.55-1.3); TOT PROT 8.1 g/dl (6.4-8.2)
[2022-06-20 20:18] LABS: PLATELET ESTIMATE ADEQUATE
[2022-06-20] MEDS ORDERED: ONDANSETRON 4 MG/2 ML VIAL ONE (20:27)
[2022-06-20 21:25] LABS: VENOUS BASE EXCESS 0.2 mmol/L (-2-2); VENOUS O2 SATURATION 21.7 % (70-80); VENOUS PCO2 56.6 mmHg (38-52); VENOUS PH 7.319 (7.310-7.410)
[2022-06-20] MEDS ORDERED: CEFTRIAXONE 1,000 MG in DEXTROSE 5%-WATER - 50 ML IVPB ONE (22:47)
[2022-06-20] MEDS ORDERED: AZITHROMYCIN IVPB 500 MG in DEXTROSE 5%-WATER - 250 ML IVPB ONE (22:48)
[2022-06-20] MEDS ORDERED: AZITHROMYCIN 500 MG VIAL IVPB ONE (22:49)
[2022-06-20] MEDS ORDERED: cefTRIAXone SODIUM 1 GM VIAL ONE (22:49)
[2022-06-21 08:09] LABS: BLOOD UREA NITROGEN 7.6 mg/dL (7-18); CALCIUM 7.9 mg/dL (8.5-10.1); CREATININE 0.6 mg/dL (0.55-1.3)
[2022-06-21] MEDS ORDERED: CEFTRIAXONE 1,000 GM in DEXTROSE 5%-WATER - 50 ML IVPB SCH (10:30)
[2022-06-21] MEDS: NYSTATIN 100,000 UNIT/GM TOPICAL CREAM 15 GM TUBE TP SCH ×2 (11:00→21:35)
[2022-06-21] MEDS: CEFTRIAXONE 1 GM in DEXTROSE 5%-WATER - 50 ML IVPB SCH (11:45)
[2022-06-21] MEDS: INSULIN (LEVEMIR) 100 UNITS/ML UNITS SQ SCH ×2 (11:45→21:43)
[2022-06-21] MEDS ORDERED: AZITHROMYCIN IVPB 500 MG in DEXTROSE 5%-WATER - 250 ML IVPB SCH (20:15)
[2022-06-21] MEDS: AZITHROMYCIN IVPB 500 MG/250 ML BAG IVPB SCH (20:33)
[2022-06-21] MEDS ORDERED: INSULIN (NOVOLOG) ASPART 100 UNITS/ML 10ML VIAL SQ ONE (21:42)
[2022-06-22] MEDS: INSULIN SLIDING SCALE (NOVOLOG) 1 VIAL SQ SCH ×4 (06:32→21:14)
[2022-06-22 08:23] LABS: ALBUMIN 2.6 g/dl (3.4-5.0); BILIRUBIN,TOTAL 0.5 mg/dl (0.2-1); CALCIUM 8.7 mg/dl (8.5-10); CREATININE 0.6 mg/dl (0.55-1.3); TOT PROT 6.4 g/dl (6.4-8.2)
[2022-06-22 09:23] LABS: WHITE BLOOD COUNT 6.1 K/mm3 (4.0-10.0)
[2022-06-22 09:28] LABS: BASO % 0.8 % (0-2.0); EOS % 4.2 % (0-4.5); LYMPH % 22.2 % (8-40); MCH 29.5 pg (25.7-33.7); MCHC 32.4 g/dl (32.0-35.9); MEAN PLT VOLUME 9.2 fl (7.5-11.1); MONO % 9.4 % (3.8-10.2); NEUT % 63.4 % (42.8-82.8); PLATELET COUNT 287 10^3/uL (134-434); RDW 12.9 % (11.9-15.9)
[2022-06-22] MEDS: CEFTRIAXONE 1 GM in DEXTROSE 5%-WATER - 50 ML IVPB SCH (11:00)
[2022-06-22] MEDS: AZITHROMYCIN IVPB 500 MG/250 ML BAG IVPB SCH (11:00)
[2022-06-22] MEDS: INSULIN (LEVEMIR) 100 UNITS/ML UNITS SQ SCH ×2 (11:01→21:08)
[2022-06-22] MEDS: NYSTATIN 100,000 UNIT/GM TOPICAL CREAM 15 GM TUBE TP SCH ×2 (11:01→21:08)
[2022-06-23] MEDS: INSULIN SLIDING SCALE (NOVOLOG) 1 VIAL SQ SCH ×4 (06:18→21:16)
[2022-06-23 08:37] LABS: ALBUMIN 2.7 g/dl (3.4-5.0); BILIRUBIN,TOTAL 0.6 mg/dl (0.2-1); CALCIUM 8.8 mg/dl (8.5-10); CREATININE 0.6 mg/dl (0.55-1.3); TOT PROT 6.6 g/dl (6.4-8.2)
[2022-06-23 09:05] LABS: HEMATOCRIT 41.2 % (35.4-49); HEMOGLOBIN 13.3 GM/dL (11.7-16.9); MCH 29.5 pg (25.7-33.7); MCHC 32.3 g/dl (32.0-35.9); MEAN CELL VOLUME 91.2 fl (80-96); MEAN PLT VOLUME 9.3 fl (7.5-11.1); PLATELET COUNT 300 10^3/uL (134-434); RBC 4.52 M/mm3 (4.00-5.60); RDW 12.5 % (11.9-15.9); WHITE BLOOD COUNT 6.9 K/mm3 (4.0-10.0)
[2022-06-23] MEDS: CEFTRIAXONE 1 GM in DEXTROSE 5%-WATER - 50 ML IVPB SCH (10:09)
[2022-06-23] MEDS: AZITHROMYCIN IVPB 500 MG/250 ML BAG IVPB SCH (10:10)
[2022-06-23] MEDS: INSULIN (LEVEMIR) 100 UNITS/ML UNITS SQ SCH ×2 (10:11→21:15)
[2022-06-23] MEDS: NYSTATIN 100,000 UNIT/GM TOPICAL CREAM 15 GM TUBE TP SCH ×2 (10:12→21:13)
[2022-06-23 13:25] LABS: HIV INTERPRETATION NEGATIVE (NEGATIVE)
[2022-06-23] MEDS: SODIUM CHLORIDE 1,000 ML IV SCH (20:02)
[2022-06-23 20:04] VITALS: BMI 19.0
[2022-06-24] MEDS: INSULIN SLIDING SCALE (NOVOLOG) 1 VIAL SQ SCH ×4 (06:49→21:35)
[2022-06-24 09:54] LABS: ALBUMIN 2.7 g/dl (3.4-5.0); CALCIUM 8.7 mg/dl (8.5-10); CREATININE 0.6 mg/dl (0.55-1.3); TOT PROT 6.5 g/dl (6.4-8.2)
[2022-06-24] MEDS: CEFTRIAXONE 1 GM in DEXTROSE 5%-WATER - 50 ML IVPB SCH (10:23)
[2022-06-24] MEDS: INSULIN (LEVEMIR) 100 UNITS/ML UNITS SQ SCH ×2 (10:23→21:34)
[2022-06-24] MEDS: AZITHROMYCIN IVPB 500 MG/250 ML BAG IVPB SCH (10:23)
[2022-06-24] MEDS: NYSTATIN 100,000 UNIT/GM TOPICAL CREAM 15 GM TUBE TP SCH ×2 (10:24→21:34)
[2022-06-24 10:54] LABS: BILIRUBIN,TOTAL 0.7 mg/dl (0.2-1)
[2022-06-24] MEDS: SODIUM CHLORIDE 1,000 ML IV SCH (21:33)
[2022-06-25] MEDS: INSULIN SLIDING SCALE (NOVOLOG) 1 VIAL SQ SCH ×4 (06:52→21:40)
[2022-06-25] MEDS: INSULIN (LEVEMIR) 100 UNITS/ML UNITS SQ SCH ×2 (09:08→21:41)
[2022-06-25] MEDS: AZITHROMYCIN IVPB 500 MG/250 ML BAG IVPB SCH (09:09)
[2022-06-25] MEDS: NYSTATIN 100,000 UNIT/GM TOPICAL CREAM 15 GM TUBE TP SCH ×2 (09:09→21:41)
[2022-06-25 09:18] LABS: CALCIUM 8.6 mg/dl (8.5-10); CREATININE 0.6 mg/dl (0.55-1.3)
[2022-06-25] MEDS: CEFTRIAXONE 1 GM in DEXTROSE 5%-WATER - 50 ML IVPB SCH (10:47)
[2022-06-26] MEDS: INSULIN SLIDING SCALE (NOVOLOG) 1 VIAL SQ SCH ×4 (06:12→21:19)
[2022-06-26] MEDS: AZITHROMYCIN IVPB 500 MG/250 ML BAG IVPB SCH ×2 (10:15→13:35)
[2022-06-26] MEDS ORDERED: SODIUM CHLORIDE 1,000 ML IV SCH (10:15)
[2022-06-26] MEDS: CEFTRIAXONE 1 GM in DEXTROSE 5%-WATER - 50 ML IVPB SCH ×2 (10:16→13:35)
[2022-06-26] MEDS: INSULIN (LEVEMIR) 100 UNITS/ML UNITS SQ SCH ×2 (10:16→21:18)
[2022-06-26] MEDS: NYSTATIN 100,000 UNIT/GM TOPICAL CREAM 15 GM TUBE TP SCH ×2 (10:19→21:20)
[2022-06-26 10:58] LABS: ALBUMIN 2.6 g/dl (3.4-5.0); BILIRUBIN,TOTAL 0.6 mg/dl (0.2-1); CREATININE 0.6 mg/dl (0.55-1.3); TOT PROT 6.1 g/dl (6.4-8.2)
[2022-06-27] MEDS: INSULIN SLIDING SCALE (NOVOLOG) 1 VIAL SQ SCH ×4 (06:54→21:08)
[2022-06-27] MEDS: NYSTATIN 100,000 UNIT/GM TOPICAL CREAM 15 GM TUBE TP SCH ×2 (09:47→21:09)
[2022-06-27] MEDS: CEFTRIAXONE 1 GM in DEXTROSE 5%-WATER - 50 ML IVPB SCH (09:47)
[2022-06-27] MEDS: AZITHROMYCIN IVPB 500 MG/250 ML BAG IVPB SCH (09:48)
[2022-06-27] MEDS: INSULIN (LEVEMIR) 100 UNITS/ML UNITS SQ SCH ×2 (09:50→21:09)
[2022-06-27 13:59] VITALS: RESP 18
[2022-06-27] MEDS ORDERED: OLANZapine 2.5 MG TABLET PO SCH (22:00)
[2022-06-28] MEDS: INSULIN SLIDING SCALE (NOVOLOG) 1 VIAL SQ SCH (06:16)
[2022-06-28 06:29] VITALS: BP 97/55; PULSE 96; TEMP 98.2
== END 2022-06-28 11:23 | DRG 637 ==
LOC: FER 18:07 → FM/S 22:50 → MERGE 22:50
PROVIDERS: ADMIT Internal Medicine; ATTEND Family Medicine
DX: E11.65 Type 2 diabetes mellitus with hyperglycemia (principal); J18.9 Pneumonia, unspecified organism; E87.1 Hypo-osmolality and hyponatremia; Z68.1 Body mass index [BMI] 19.9 or less, adult; E78.5 Hyperlipidemia, unspecified; I12.9 Hypertensive chronic kidney disease with stage 1 through stage 4 chronic kidney disease, or unspecified chronic kidney disease; E11.22 Type 2 diabetes mellitus with diabetic chronic kidney disease; N18.9 Chronic kidney disease, unspecified; Z79.4 Long term (current) use of insulin; Z59.00 Homelessness unspecified; J44.9 Chronic obstructive pulmonary disease, unspecified; F10.10 Alcohol abuse, uncomplicated; R62.7 Adult failure to thrive; N47.2 Paraphimosis
CPT/HCPCS: 0241U-QW; 36415; 71045-TC-FY; 71250-TC; 80048; 80053; 81003; 81015; 82010; 82436; 82533; 82803; 82962; 83690; 83930; 83935; 84133; 84300; 84443; 85025; 85027; 87040; 87070; 87077; 87086; 87110; 87116; 87205; 87206; 87389; 87491; 87556; 87591; 87899; 93005; 99285-25

== ENCOUNTER 2022-11-26 10:36 | Emergency (ER) | payer OTHER ==
[2022-11-26 11:02] VITALS: TEMP 98.7; BMI 16.1
[2022-11-26] MEDS ORDERED: LACTATED RINGERS SOLUTION 1000 ML INFUS.BAG IV ONE ×2 (11:08→12:48)
[2022-11-26 11:19] LABS: BASO % 0.6 % (0-2.0); HEMATOCRIT 38.1 % (35.4-49); HEMOGLOBIN 12.8 GM/dL (11.7-16.9); LYMPH % 8.3 % (8-40); MCH 30.4 pg (25.7-33.7); MCHC 33.7 g/dl (32.0-35.9); MEAN CELL VOLUME 90.4 fl (80-96); MEAN PLT VOLUME 7.9 fl (7.5-11.1); MONO % 7.8 % (3.8-10.2); NEUT % 79.3 % (42.8-82.8); PLATELET COUNT 273 10^3/uL (134-434); RBC 4.22 M/mm3 (4.00-5.60); WHITE BLOOD COUNT 9.7 K/mm3 (4.0-10.0)
[2022-11-26] MEDS ORDERED: ACETAMINOPHEN 325 MG TABLET (FP) PO ONE (11:36)
[2022-11-26] MEDS ORDERED: ACETAMINOPHEN 325 MG TABLET (FP) ONE (12:18)
[2022-11-26 12:25] LABS: ALBUMIN 3.2 g/dl (3.4-5.0); BILIRUBIN,TOTAL 0.8 mg/dL (0.2-1); BLOOD UREA NITROGEN 13.9 mg/dL (7-18); CALCIUM 8.9 mg/dL (8.5-10.1); CREATININE 0.9 mg/dL (0.55-1.3); POTASSIUM 4.9 mmol/L (3.5-5.1); TOT PROT 8.2 g/dl (6.4-8.2)
[2022-11-26 14:30] VITALS: RESP 20
[2022-11-26 14:32] LABS: INR 1.4 (0.83-1.09); PROTHROMBIN TIME (PATIENT) 16.2 SEC (9.7-13.0)
[2022-11-26 14:35] LABS: ACTIVATED PTT 32.2 SECONDS (25.2-36.5)
[2022-11-26 14:56] VITALS: BP 98/59; PULSE 88
== END 2022-11-26 18:56 | disposition home or self-care (01) ==
LOC: JER 10:36
DX: J47.9 Bronchiectasis, uncomplicated (principal); R07.89 Other chest pain; Z59.01 Sheltered homelessness; Z20.822 Contact with and (suspected) exposure to COVID-19
CPT/HCPCS: 0241U-QW; 36415; 71045-TC-FY; 71275-TC; 80053; 82550; 82553; 82962; 84484; 85025; 85610; 85730; 93005; 93010; 99285-25; Q9967

== ENCOUNTER 2022-11-29 04:37 | Emergency (ER) | payer OTHER ==
[2022-11-29 04:44] VITALS: BP 100/69; PULSE 80; RESP 15; TEMP 97.5; BMI 17.2
== END 2022-11-29 05:30 | disposition home or self-care (01) ==
LOC: JER 04:37
DX: R53.1 Weakness (principal); Z59.00 Homelessness unspecified
CPT/HCPCS: 99281-25

== ENCOUNTER 2022-12-24 03:53 | Emergency (ER) | payer OTHER ==
[2022-12-24 04:16] VITALS: BP 116/71; PULSE 96; RESP 18; TEMP 98.6; BMI 16.2
== END 2022-12-24 05:41 | disposition home or self-care (01) ==
LOC: JER 03:53
DX: M79.671 Pain in right foot (principal); M79.672 Pain in left foot; Z59.00 Homelessness unspecified
CPT/HCPCS: 99283-25

== ENCOUNTER 2023-01-19 10:30 | Inpatient (IN) | payer OTHER ==
[2023-01-19 11:18] VITALS: BMI 17.2
[2023-01-19] MEDS ORDERED: SODIUM CHLORIDE IV ONE (11:19)
[2023-01-19 12:21] LABS: HEMATOCRIT 36.5 % (35.4-49); HEMOGLOBIN 11.7 GM/dL (11.7-16.9); MEAN CELL VOLUME 90.4 fl (80-96); MEAN PLT VOLUME 8.6 fl (7.5-11.1); PLATELET COUNT 408 10^3/uL (134-434); RBC 4.04 M/mm3 (4.00-5.60); RDW 13.4 % (11.9-15.9); WHITE BLOOD COUNT 13.4 K/mm3 (4.0-10.0)
[2023-01-19 12:22] LABS: VENOUS BASE EXCESS 2.8 mmol/L (-2-2); VENOUS O2 SATURATION 99.4 % (70-80); VENOUS PCO2 41.1 mmHg (38-52); VENOUS PH 7.439 (7.310-7.410)
[2023-01-19 12:28] LABS: INR 1.61 (0.83-1.09); PROTHROMBIN TIME (PATIENT) 18.6 SEC (9.7-13.0)
[2023-01-19 12:31] LABS: ACTIVATED PTT 36.8 SECONDS (25.2-36.5)
[2023-01-19 12:41] LABS: POTASSIUM 4.3 mmol/L (3.5-5.1)
[2023-01-19 12:42] LABS: ALBUMIN 2.4 g/dl (3.4-5.0); BLOOD UREA NITROGEN 14.1 mg/dL (7-18)
[2023-01-19 12:45] LABS: CREATININE 0.6 mg/dL (0.55-1.3)
[2023-01-19 12:48] LABS: BILIRUBIN,TOTAL 0.5 mg/dL (0.2-1); TOT PROT 7.4 g/dl (6.4-8.2)
[2023-01-19 12:50] LABS: ANISOCYTOSIS 0; MACROCYTOSIS 0; N-TERMINAL BNP 325.6 pg/ml (5-125)
[2023-01-19] MEDS ORDERED: CEFTRIAXONE 1 GM in DEXTROSE 5%-WATER - 50 ML IVPB ONE (13:44)
[2023-01-19] MEDS ORDERED: AZITHROMYCIN IVPB 500 MG in DEXTROSE 5%-WATER - 250 ML IVPB ONE (13:44)
[2023-01-19] MEDS ORDERED: CEFTRIAXONE 1 GM/50 ML BAG ONE (13:57)
[2023-01-19] MEDS ORDERED: AZITHROMYCIN IVPB 500 MG/250 ML BAG IVPB ONE (14:23)
[2023-01-19] MEDS ORDERED: ALBUTEROL SO4 HFA INHALER IH PRN (16:18)
[2023-01-19] MEDS ORDERED: SODIUM CHLORIDE 1,000 ML IV STA ×2 (18:29→22:37)
[2023-01-19] MEDS ORDERED: PIPERACILLIN/TAZOB 3.375 GM 3.375 GM in DEXTROSE 5%-WATER - 50 ML IVPB ONE (18:39)
[2023-01-19] MEDS: INSULIN SLIDING SCALE (NOVOLOG) 1 VIAL SQ SCH ×2 (18:45→22:06)
[2023-01-19] MEDS ORDERED: SODIUM CHLORIDE 1,000 ML IV SCH ×2 (18:45→18:51)
[2023-01-19] MEDS: ACETAMINOPHEN 325 MG TABLET (FP) PO PRN (19:56)
[2023-01-19] MEDS: ATORVASTATIN CA 40 MG TABLET (FP) PO SCH (21:58)
[2023-01-19] MEDS: OLANZapine 2.5 MG TABLET PO SCH (21:58)
[2023-01-19] MEDS: MIDODRINE HCL 5 MG TABLET PO SCH (22:50)
[2023-01-19 22:52] LABS: URINE APPEARANCE CLEAR; URINE BILIRUBIN NEGATIVE (NEGATIVE); URINE COLOR YELLOW; URINE GLUCOSE (UA) 3+ (NEGATIVE); URINE KETONE NEGATIVE (NEGATIVE); URINE LEUK ESTERASE NEGATIVE (NEGATIVE); URINE NITRITE NEGATIVE (NEGATIVE); URINE PROTEIN TRACE (NEGATIVE)
[2023-01-20] MEDS: INSULIN SLIDING SCALE (NOVOLOG) 1 VIAL SQ SCH ×4 (06:05→21:14)
[2023-01-20 07:09] LABS: BASO % 0.6 % (0-2.0); EOS % 0.5 % (0-4.5); HEMATOCRIT 33.2 % (35.4-49); HEMOGLOBIN 10.7 GM/dL (11.7-16.9); LYMPH % 4.8 % (8-40); MCH 29.3 pg (25.7-33.7); MCHC 32.3 g/dl (32.0-35.9); MEAN CELL VOLUME 90.7 fl (80-96); MEAN PLT VOLUME 8.3 fl (7.5-11.1); MONO % 4.7 % (3.8-10.2); NEUT % 89.4 % (42.8-82.8); PLATELET COUNT 328 10^3/uL (134-434); RBC 3.66 M/mm3 (4.00-5.60); RDW 13.7 % (11.9-15.9); WHITE BLOOD COUNT 9.7 K/mm3 (4.0-10.0)
[2023-01-20 07:42] LABS: BLOOD UREA NITROGEN 10.5 mg/dL (7-18); CALCIUM 7.9 mg/dL (8.5-10.1)
[2023-01-20 07:45] LABS: CREATININE 0.5 mg/dL (0.55-1.3)
[2023-01-20 07:46] LABS: BILIRUBIN,TOTAL 0.3 mg/dL (0.2-1)
[2023-01-20 08:00] LABS: ALBUMIN 1.9 g/dl (3.4-5.0)
[2023-01-20] MEDS ORDERED: LACTATED RINGERS SOLUTION 1,000 ML/1,000 ML INFUS.BAG IV STA (09:05)
[2023-01-20] MEDS ORDERED: AZITHROMYCIN IVPB 500 MG in DEXTROSE 5%-WATER - 250 ML IVPB SCH (10:00)
[2023-01-20] MEDS: CEFTRIAXONE 1 GM in DEXTROSE 5%-WATER - 50 ML IVPB SCH (10:03)
[2023-01-20] MEDS: MIDODRINE HCL 5 MG TABLET PO SCH (10:04)
[2023-01-20] MEDS: MULTIVITAMINS (DAILY MVI) TABLET (FP) PO SCH (10:04)
[2023-01-20] MEDS: OLANZapine 2.5 MG TABLET PO SCH ×4 (10:04→21:30)
[2023-01-20] MEDS: AMINO ACIDS/PROTEIN HYDROLYS 30 ML LIQUID.PKT PO SCH (10:04)
[2023-01-20] MEDS: BUDESONIDE/FORMETEROL FUMARATE 160/4.5 mcg INHALER IH SCH (10:05)
[2023-01-20] MEDS: ENOXAPARIN NA (PORCINE) 40 MG/0.4 ML DISP.SYRIN SQ SCH (10:05)
[2023-01-20] MEDS: LACTATED RINGERS SOLUTION 1,000 ML/1,000 ML INFUS.BAG IV SCH (12:40)
[2023-01-20] MEDS: AZITHROMYCIN IVPB 500 MG/250 ML BAG IVPB SCH (14:17)
[2023-01-20] MEDS: ATORVASTATIN CA 40 MG TABLET (FP) PO SCH ×2 (21:14→21:30)
[2023-01-21] MEDS: LACTATED RINGERS SOLUTION 1,000 ML/1,000 ML INFUS.BAG IV SCH (05:32)
[2023-01-21] MEDS: INSULIN SLIDING SCALE (NOVOLOG) 1 VIAL SQ SCH ×4 (06:20→22:15)
[2023-01-21] MEDS: MULTIVITAMINS (DAILY MVI) TABLET (FP) PO SCH (10:04)
[2023-01-21] MEDS: CEFTRIAXONE 1 GM in DEXTROSE 5%-WATER - 50 ML IVPB SCH (10:04)
[2023-01-21] MEDS: OLANZapine 2.5 MG TABLET PO SCH (10:04)
[2023-01-21] MEDS: AMINO ACIDS/PROTEIN HYDROLYS 30 ML LIQUID.PKT PO SCH (10:04)
[2023-01-21] MEDS: ENOXAPARIN NA (PORCINE) 40 MG/0.4 ML DISP.SYRIN SQ SCH (10:04)
[2023-01-21] MEDS: INSULIN (LEVEMIR) 100 UNITS/ML UNITS SQ SCH ×2 (11:46→22:15)
[2023-01-21] MEDS: AZITHROMYCIN IVPB 500 MG/250 ML BAG IVPB SCH (11:48)
[2023-01-21] MEDS: BUDESONIDE/FORMETEROL FUMARATE 160/4.5 mcg INHALER IH SCH (11:48)
[2023-01-21] MEDS ORDERED: OLANZapine 2.5 MG TABLET PO ONE (15:39)
[2023-01-21] MEDS: ATORVASTATIN CA 40 MG TABLET (FP) PO SCH (22:14)
[2023-01-21] MEDS: OLANZapine 5 MG TABLET PO SCH (22:14)
[2023-01-21] MEDS: ACETAMINOPHEN 325 MG TABLET (FP) PO PRN (22:14)
[2023-01-22] MEDS: INSULIN (LEVEMIR) 100 UNITS/ML UNITS SQ SCH ×2 (06:08→21:21)
[2023-01-22] MEDS: INSULIN SLIDING SCALE (NOVOLOG) 1 VIAL SQ SCH ×4 (06:09→21:20)
[2023-01-22] MEDS: AMINO ACIDS/PROTEIN HYDROLYS 30 ML LIQUID.PKT PO SCH (08:43)
[2023-01-22] MEDS: AZITHROMYCIN IVPB 500 MG/250 ML BAG IVPB SCH (09:29)
[2023-01-22] MEDS: CEFTRIAXONE 1 GM in DEXTROSE 5%-WATER - 50 ML IVPB SCH (09:30)
[2023-01-22] MEDS: ENOXAPARIN NA (PORCINE) 40 MG/0.4 ML DISP.SYRIN SQ SCH (09:31)
[2023-01-22] MEDS: MULTIVITAMINS (DAILY MVI) TABLET (FP) PO SCH (09:31)
[2023-01-22] MEDS: OLANZapine 5 MG TABLET PO SCH ×2 (09:31→21:22)
[2023-01-22] MEDS: BUDESONIDE/FORMETEROL FUMARATE 160/4.5 mcg INHALER IH SCH (09:31)
[2023-01-22 11:04] LABS: BASO % 0.5 % (0-2.0); EOS % 1.6 % (0-4.5); HEMATOCRIT 33.7 % (35.4-49); HEMOGLOBIN 11.1 GM/dL (11.7-16.9); LYMPH % 5.1 % (8-40); MCH 29.1 pg (25.7-33.7); MCHC 32.9 g/dl (32.0-35.9); MEAN CELL VOLUME 88.6 fl (80-96); MEAN PLT VOLUME 8.2 fl (7.5-11.1); MONO % 7.6 % (3.8-10.2); NEUT % 85.2 % (42.8-82.8); PLATELET COUNT 369 10^3/uL (134-434); RBC 3.81 M/mm3 (4.00-5.60); RDW 13.6 % (11.9-15.9); WHITE BLOOD COUNT 8.9 K/mm3 (4.0-10.0)
[2023-01-22 11:16] LABS: POTASSIUM 4.3 mmol/L (3.5-5.1)
[2023-01-22 11:18] LABS: BLOOD UREA NITROGEN 13.5 mg/dL (7-18); CALCIUM 8.9 mg/dL (8.5-10.1)
[2023-01-22 11:19] LABS: ALBUMIN 2.1 g/dl (3.4-5.0)
[2023-01-22 11:22] LABS: CREATININE 0.5 mg/dL (0.55-1.3)
[2023-01-22 11:23] LABS: BILIRUBIN,TOTAL 0.6 mg/dL (0.2-1); TOT PROT 6.8 g/dl (6.4-8.2)
[2023-01-22] MEDS: ACETAMINOPHEN 325 MG TABLET (FP) PO PRN (17:51)
[2023-01-22] MEDS: ATORVASTATIN CA 40 MG TABLET (FP) PO SCH (21:22)
[2023-01-23] MEDS: INSULIN SLIDING SCALE (NOVOLOG) 1 VIAL SQ SCH ×4 (06:06→21:24)
[2023-01-23] MEDS: INSULIN (LEVEMIR) 100 UNITS/ML UNITS SQ SCH ×2 (06:07→21:25)
[2023-01-23] MEDS ORDERED: SODIUM CHLORIDE 250 ML IV STA (06:42)
[2023-01-23 08:01] LABS: BASO % 0.4 % (0-2.0); EOS % 0.4 % (0-4.5); HEMATOCRIT 33.9 % (35.4-49); HEMOGLOBIN 10.8 GM/dL (11.7-16.9); MCHC 31.9 g/dl (32.0-35.9); MEAN CELL VOLUME 90.8 fl (80-96); MEAN PLT VOLUME 8.9 fl (7.5-11.1); MONO % 6.3 % (3.8-10.2); NEUT % 88.9 % (42.8-82.8); PLATELET COUNT 409 10^3/uL (134-434); RBC 3.73 M/mm3 (4.00-5.60); RDW 13.4 % (11.9-15.9); WHITE BLOOD COUNT 10.2 K/mm3 (4.0-10.0)
[2023-01-23] MEDS: ENOXAPARIN NA (PORCINE) 40 MG/0.4 ML DISP.SYRIN SQ SCH (09:38)
[2023-01-23] MEDS: MULTIVITAMINS (DAILY MVI) TABLET (FP) PO SCH (09:38)
[2023-01-23] MEDS: CEFTRIAXONE 1 GM in DEXTROSE 5%-WATER - 50 ML IVPB SCH (09:38)
[2023-01-23] MEDS: OLANZapine 5 MG TABLET PO SCH (09:38)
[2023-01-23] MEDS: AMINO ACIDS/PROTEIN HYDROLYS 30 ML LIQUID.PKT PO SCH (09:42)
[2023-01-23] MEDS ORDERED: methylPREDNISolone NA SUCC 40 MG/1 ML VIAL IVPUSH ONE (10:00)
[2023-01-23 10:45] LABS: POTASSIUM 4.5 mmol/L (3.5-5.1)
[2023-01-23 10:48] LABS: ALBUMIN 2.3 g/dl (3.4-5.0); CALCIUM 9.2 mg/dL (8.5-10.1); MAGNESIUM 2.3 mg/dL (1.8-2.4)
[2023-01-23 10:51] LABS: CREATININE 0.6 mg/dL (0.55-1.3); PHOSPHOROUS 3.6 mg/dL (2.5-4.9)
[2023-01-23 10:53] LABS: BILIRUBIN,TOTAL 0.8 mg/dL (0.2-1); TOT PROT 7.7 g/dl (6.4-8.2)
[2023-01-23] MEDS: AZITHROMYCIN IVPB 500 MG/250 ML BAG IVPB SCH (12:17)
[2023-01-23] MEDS: BUDESONIDE/FORMETEROL FUMARATE 160/4.5 mcg INHALER IH SCH (12:33)
[2023-01-23 13:24] LABS: ARTERIAL BLOOD GAS BASE EXCESS 0.7 mmol/L (-2-2); ARTERIAL BLOOD GAS pH 7.401 (7.350-7.450)
[2023-01-23 13:28] LABS: ALLENS TEST POSITIVE
[2023-01-23] MEDS: methylPREDNISolone NA SUCC 40 MG/1 ML VIAL IVPUSH SCH (18:02)
[2023-01-23] MEDS: ATORVASTATIN CA 40 MG TABLET (FP) PO SCH (21:19)
[2023-01-23] MEDS: ACETAMINOPHEN 325 MG TABLET (FP) PO PRN (21:19)
[2023-01-24] MEDS: methylPREDNISolone NA SUCC 40 MG/1 ML VIAL IVPUSH SCH ×2 (01:58→10:17)
[2023-01-24] MEDS ORDERED: INSULIN (NOVOLOG) ASPART 100 UNITS/ML 10ML VIAL SQ ONE (03:31)
[2023-01-24] MEDS: INSULIN (LEVEMIR) 100 UNITS/ML UNITS SQ SCH ×2 (06:30→22:21)
[2023-01-24] MEDS: INSULIN SLIDING SCALE (NOVOLOG) 1 VIAL SQ SCH ×4 (06:30→22:21)
[2023-01-24 07:31] LABS: HEMATOCRIT 33.1 % (35.4-49); HEMOGLOBIN 10.5 GM/dL (11.7-16.9); MCH 29.3 pg (25.7-33.7); MCHC 31.8 g/dl (32.0-35.9); MEAN CELL VOLUME 92.2 fl (80-96); MEAN PLT VOLUME 8.9 fl (7.5-11.1); PLATELET COUNT 418 10^3/uL (134-434); RBC 3.59 M/mm3 (4.00-5.60); RDW 13.3 % (11.9-15.9); WHITE BLOOD COUNT 14.8 K/mm3 (4.0-10.0)
[2023-01-24 07:59] LABS: CHLORIDE 97 mmol/L (98-107); POTASSIUM 4.6 mmol/L (3.5-5.1); SODIUM 136 mmol/L (136-145)
[2023-01-24 08:08] LABS: CALCIUM 9.4 mg/dL (8.5-10.1)
[2023-01-24 08:09] LABS: ANION GAP 7 MMOL/L (8-16); BLOOD UREA NITROGEN 20.6 mg/dL (7-18); CO2 32 mmol/L (21-32); MAGNESIUM 2.6 mg/dL (1.8-2.4)
[2023-01-24 08:11] LABS: CREATININE 0.7 mg/dL (0.55-1.3)
[2023-01-24 08:12] LABS: SGOT/AST 19 U/L (15-37); SGPT/ALT 21 U/L (13-61)
[2023-01-24 08:13] LABS: BILIRUBIN,TOTAL 0.5 mg/dL (0.2-1); TOT PROT 7.3 g/dl (6.4-8.2)
[2023-01-24 08:14] LABS: ALK PHOS 141 U/L (45-117)
[2023-01-24 08:42] LABS: GLUCOSE,RANDOM 423 mg/dL (74-106)
[2023-01-24 08:50] LABS: ANISOCYTOSIS 0; HELMET CELLS 0; HOWELL-JOLLY BODIES 0; MACROCYTOSIS 0; OVALOCYTE 0; ROULEAU 0; SICKELED CELLS 0; TARGET CELLS 0; TEAR DROP CELLS 0; TOXIC GRANULATION 0
[2023-01-24] MEDS: ENOXAPARIN NA (PORCINE) 40 MG/0.4 ML DISP.SYRIN SQ SCH (10:16)
[2023-01-24] MEDS: CEFTRIAXONE 1 GM in DEXTROSE 5%-WATER - 50 ML IVPB SCH (10:16)
[2023-01-24] MEDS: AMINO ACIDS/PROTEIN HYDROLYS 30 ML LIQUID.PKT PO SCH (10:16)
[2023-01-24] MEDS: BUDESONIDE/FORMETEROL FUMARATE 160/4.5 mcg INHALER IH SCH (10:17)
[2023-01-24] MEDS: OLANZapine 5 MG TABLET PO SCH (10:17)
[2023-01-24] MEDS: MULTIVITAMINS (DAILY MVI) TABLET (FP) PO SCH (10:17)
[2023-01-24] MEDS: AZITHROMYCIN IVPB 500 MG/250 ML BAG IVPB SCH (11:31)
[2023-01-24] MEDS: ACETAMINOPHEN 325 MG TABLET (FP) PO PRN (17:43)
[2023-01-24] MEDS: ATORVASTATIN CA 40 MG TABLET (FP) PO SCH (22:20)
[2023-01-25] MEDS: INSULIN (LEVEMIR) 100 UNITS/ML UNITS SQ SCH ×2 (06:34→22:09)
[2023-01-25] MEDS: INSULIN SLIDING SCALE (NOVOLOG) 1 VIAL SQ SCH ×4 (06:35→22:09)
[2023-01-25 08:25] LABS: POTASSIUM 5.3 mmol/L (3.5-5.1)
[2023-01-25 08:43] LABS: CALCIUM 9.5 mg/dL (8.5-10.1)
[2023-01-25 08:46] LABS: ALBUMIN 1.9 g/dl (3.4-5.0); BLOOD UREA NITROGEN 18.5 mg/dL (7-18); MAGNESIUM 2.4 mg/dL (1.8-2.4)
[2023-01-25 08:47] LABS: BILIRUBIN,TOTAL 0.5 mg/dL (0.2-1); CREATININE 0.5 mg/dL (0.55-1.3)
[2023-01-25 09:10] LABS: HEMATOCRIT 32.8 % (35.4-49); HEMOGLOBIN 10.2 GM/dL (11.7-16.9); MCH 28.6 pg (25.7-33.7); MCHC 31.2 g/dl (32.0-35.9); MEAN CELL VOLUME 91.8 fl (80-96); MEAN PLT VOLUME 9.4 fl (7.5-11.1); PLATELET COUNT 401 10^3/uL (134-434); RBC 3.58 M/mm3 (4.00-5.60); RDW 13.9 % (11.9-15.9)
[2023-01-25 09:16] LABS: WHITE BLOOD COUNT 22.1 K/mm3 (4.0-10.0)
[2023-01-25 09:41] LABS: PLATELET ESTIMATE ADEQUATE
[2023-01-25 10:00] LABS: ANISOCYTOSIS 0; HELMET CELLS 0; HOWELL-JOLLY BODIES 0; MACROCYTOSIS 0; OVALOCYTE 0; ROULEAU 0; SICKELED CELLS 0; TARGET CELLS 0; TEAR DROP CELLS 0; TOXIC GRANULATION 0
[2023-01-25] MEDS: AMINO ACIDS/PROTEIN HYDROLYS 30 ML LIQUID.PKT PO SCH (10:24)
[2023-01-25] MEDS: AZITHROMYCIN IVPB 500 MG/250 ML BAG IVPB SCH ×2 (10:24→13:05)
[2023-01-25] MEDS: OLANZapine 5 MG TABLET PO SCH (10:24)
[2023-01-25] MEDS: CEFTRIAXONE 1 GM in DEXTROSE 5%-WATER - 50 ML IVPB SCH ×2 (10:24→13:05)
[2023-01-25] MEDS: BUDESONIDE/FORMETEROL FUMARATE 160/4.5 mcg INHALER IH SCH (10:24)
[2023-01-25] MEDS: ENOXAPARIN NA (PORCINE) 40 MG/0.4 ML DISP.SYRIN SQ SCH (10:24)
[2023-01-25] MEDS: MULTIVITAMINS (DAILY MVI) TABLET (FP) PO SCH (10:24)
[2023-01-25] MEDS: ACETAMINOPHEN 325 MG TABLET (FP) PO PRN ×2 (16:34→22:07)
[2023-01-25] MEDS ORDERED: INSULIN SLIDING SCALE (NOVOLOG) 1 VIAL SQ ONE (16:34)
[2023-01-25] MEDS: ATORVASTATIN CA 40 MG TABLET (FP) PO SCH (22:07)
[2023-01-26] MEDS: INSULIN (LEVEMIR) 100 UNITS/ML UNITS SQ SCH ×2 (06:12→22:18)
[2023-01-26] MEDS: INSULIN SLIDING SCALE (NOVOLOG) 1 VIAL SQ SCH ×4 (06:12→22:19)
[2023-01-26] MEDS ORDERED: INSULIN (LEVEMIR) 100 UNITS/ML UNITS SQ ONE (06:49)
[2023-01-26] MEDS ORDERED: INSULIN SLIDING SCALE (NOVOLOG) 1 VIAL SQ ONE (06:50)
[2023-01-26 07:30] LABS: POTASSIUM 4.9 mmol/L (3.5-5.1)
[2023-01-26 07:35] LABS: CALCIUM 8.9 mg/dL (8.5-10.1)
[2023-01-26 07:36] LABS: ALBUMIN 2.1 g/dl (3.4-5.0); BLOOD UREA NITROGEN 17.2 mg/dL (7-18)
[2023-01-26 07:39] LABS: CREATININE 0.5 mg/dL (0.55-1.3)
[2023-01-26 07:40] LABS: BILIRUBIN,TOTAL 0.5 mg/dL (0.2-1)
[2023-01-26 07:41] LABS: TOT PROT 7.2 g/dl (6.4-8.2)
[2023-01-26] MEDS: MULTIVITAMINS (DAILY MVI) TABLET (FP) PO SCH (09:00)
[2023-01-26] MEDS: AMINO ACIDS/PROTEIN HYDROLYS 30 ML LIQUID.PKT PO SCH (09:00)
[2023-01-26] MEDS: OLANZapine 5 MG TABLET PO SCH (09:00)
[2023-01-26] MEDS: ENOXAPARIN NA (PORCINE) 40 MG/0.4 ML DISP.SYRIN SQ SCH (09:00)
[2023-01-26] MEDS: BUDESONIDE/FORMETEROL FUMARATE 160/4.5 mcg INHALER IH SCH (09:01)
[2023-01-26] MEDS: ATORVASTATIN CA 40 MG TABLET (FP) PO SCH (22:18)
[2023-01-27] MEDS: INSULIN (LEVEMIR) 100 UNITS/ML UNITS SQ SCH ×2 (06:11→21:03)
[2023-01-27] MEDS: INSULIN SLIDING SCALE (NOVOLOG) 1 VIAL SQ SCH ×4 (06:12→21:02)
[2023-01-27] MEDS: AMINO ACIDS/PROTEIN HYDROLYS 30 ML LIQUID.PKT PO SCH (08:51)
[2023-01-27] MEDS: MULTIVITAMINS (DAILY MVI) TABLET (FP) PO SCH (09:54)
[2023-01-27] MEDS: ENOXAPARIN NA (PORCINE) 40 MG/0.4 ML DISP.SYRIN SQ SCH (09:54)
[2023-01-27] MEDS: OLANZapine 5 MG TABLET PO SCH (09:54)
[2023-01-27] MEDS: BUDESONIDE/FORMETEROL FUMARATE 160/4.5 mcg INHALER IH SCH (09:54)
[2023-01-27] MEDS: ALBUTEROL SO4 2.5/IPRATROPIUM 0.5 INH SOL 3 ML VIAL.NEB. NEB SCH ×3 (11:55→20:37)
[2023-01-27] MEDS: ACETAMINOPHEN 325 MG TABLET (FP) PO PRN ×2 (12:41→22:16)
[2023-01-27] MEDS: ATORVASTATIN CA 40 MG TABLET (FP) PO SCH (21:02)
[2023-01-27] MEDS: ACETAMINOPHEN 650 MG/20.3 ML ORAL SOLUTION (CUPS) PO PRN (23:23)
[2023-01-28] MEDS: INSULIN SLIDING SCALE (NOVOLOG) 1 VIAL SQ SCH ×4 (06:28→21:05)
[2023-01-28] MEDS: ACETAMINOPHEN 650 MG/20.3 ML ORAL SOLUTION (CUPS) PO PRN ×2 (06:57→13:06)
[2023-01-28] MEDS: ALBUTEROL SO4 2.5/IPRATROPIUM 0.5 INH SOL 3 ML VIAL.NEB. NEB SCH ×4 (07:20→20:14)
[2023-01-28] MEDS: AMINO ACIDS/PROTEIN HYDROLYS 30 ML LIQUID.PKT PO SCH (07:56)
[2023-01-28] MEDS ORDERED: LORazepam 2 MG TABLET PO PRN (09:00)
[2023-01-28] MEDS: ENOXAPARIN NA (PORCINE) 40 MG/0.4 ML DISP.SYRIN SQ SCH (10:08)
[2023-01-28] MEDS: predniSONE 20 MG TABLET (UD) PO SCH (10:08)
[2023-01-28] MEDS: OLANZapine 5 MG TABLET PO SCH (10:08)
[2023-01-28] MEDS: MULTIVITAMINS (DAILY MVI) TABLET (FP) PO SCH (10:08)
[2023-01-28] MEDS: BUDESONIDE/FORMETEROL FUMARATE 160/4.5 mcg INHALER IH SCH (10:09)
[2023-01-28] MEDS: LORazepam 0.5 MG TABLET PO PRN (12:58)
[2023-01-28] MEDS ORDERED: ACETAMINOPHEN 325 MG TABLET (FP) PO PRN (18:05)
[2023-01-28] MEDS: ATORVASTATIN CA 40 MG TABLET (FP) PO SCH (21:04)
[2023-01-28] MEDS: INSULIN (LEVEMIR) 100 UNITS/ML UNITS SQ SCH (21:04)
[2023-01-29] MEDS: INSULIN SLIDING SCALE (NOVOLOG) 1 VIAL SQ SCH ×4 (06:37→21:00)
[2023-01-29] MEDS: ALBUTEROL SO4 2.5/IPRATROPIUM 0.5 INH SOL 3 ML VIAL.NEB. NEB SCH ×4 (08:56→20:47)
[2023-01-29] MEDS: AMINO ACIDS/PROTEIN HYDROLYS 30 ML LIQUID.PKT PO SCH (09:37)
[2023-01-29] MEDS: ENOXAPARIN NA (PORCINE) 40 MG/0.4 ML DISP.SYRIN SQ SCH (09:37)
[2023-01-29] MEDS: predniSONE 20 MG TABLET (UD) PO SCH (09:37)
[2023-01-29] MEDS: MULTIVITAMINS (DAILY MVI) TABLET (FP) PO SCH (09:37)
[2023-01-29] MEDS: OLANZapine 5 MG TABLET PO SCH (09:37)
[2023-01-29] MEDS: BUDESONIDE/FORMETEROL FUMARATE 160/4.5 mcg INHALER IH SCH (10:35)
[2023-01-29] MEDS: INSULIN (LEVEMIR) 100 UNITS/ML UNITS SQ SCH (21:00)
[2023-01-29] MEDS: ATORVASTATIN CA 40 MG TABLET (FP) PO SCH (21:01)
[2023-01-30] MEDS: INSULIN SLIDING SCALE (NOVOLOG) 1 VIAL SQ SCH ×4 (06:06→21:17)
[2023-01-30] MEDS: ALBUTEROL SO4 2.5/IPRATROPIUM 0.5 INH SOL 3 ML VIAL.NEB. NEB SCH ×4 (08:57→20:19)
[2023-01-30 09:20] LABS: BASO % 0.3 % (0-2.0); EOS % 0.6 % (0-4.5); HEMATOCRIT 30.5 % (35.4-49); HEMOGLOBIN 9.8 GM/dL (11.7-16.9); LYMPH % 7.9 % (8-40); MCH 29.1 pg (25.7-33.7); MCHC 32.2 g/dl (32.0-35.9); MEAN CELL VOLUME 90.3 fl (80-96); MEAN PLT VOLUME 7.7 fl (7.5-11.1); MONO % 10.9 % (3.8-10.2); NEUT % 80.3 % (42.8-82.8); PLATELET COUNT 657 10^3/uL (134-434); RBC 3.38 M/mm3 (4.00-5.60); RDW 14.1 % (11.9-15.9); WHITE BLOOD COUNT 14.2 K/mm3 (4.0-10.0)
[2023-01-30 09:33] LABS: CHLORIDE 100 mmol/L (98-107); POTASSIUM 4.2 mmol/L (3.5-5.1); SODIUM 138 mmol/L (136-145)
[2023-01-30 09:39] LABS: ALBUMIN 2.1 g/dl (3.4-5.0); ANION GAP 3 MMOL/L (8-16); BLOOD UREA NITROGEN 15.2 mg/dL (7-18); CO2 36 mmol/L (21-32); MAGNESIUM 2.1 mg/dL (1.8-2.4)
[2023-01-30 09:42] LABS: CREATININE 0.5 mg/dL (0.55-1.3); SGOT/AST 23 U/L (15-37); SGPT/ALT 33 U/L (13-61)
[2023-01-30 09:44] LABS: BILIRUBIN,TOTAL 0.4 mg/dL (0.2-1); TOT PROT 7.3 g/dl (6.4-8.2)
[2023-01-30] MEDS: MULTIVITAMINS (DAILY MVI) TABLET (FP) PO SCH (09:45)
[2023-01-30] MEDS: AMINO ACIDS/PROTEIN HYDROLYS 30 ML LIQUID.PKT PO SCH (09:45)
[2023-01-30] MEDS: OLANZapine 5 MG TABLET PO SCH (09:45)
[2023-01-30] MEDS: ENOXAPARIN NA (PORCINE) 40 MG/0.4 ML DISP.SYRIN SQ SCH (09:45)
[2023-01-30] MEDS: predniSONE 20 MG TABLET (UD) PO SCH (09:45)
[2023-01-30 09:48] LABS: ALK PHOS 160 U/L (45-117); GLUCOSE,RANDOM 42 mg/dL (74-106)
[2023-01-30] MEDS: BUDESONIDE/FORMETEROL FUMARATE 160/4.5 mcg INHALER IH SCH (11:06)
[2023-01-30] MEDS: LORazepam 0.5 MG TABLET PO PRN (21:17)
[2023-01-30] MEDS: INSULIN (LEVEMIR) 100 UNITS/ML UNITS SQ SCH (21:17)
[2023-01-30] MEDS: ATORVASTATIN CA 40 MG TABLET (FP) PO SCH (21:18)
[2023-01-31] MEDS: INSULIN SLIDING SCALE (NOVOLOG) 1 VIAL SQ SCH ×4 (06:00→23:09)
[2023-01-31] MEDS: ALBUTEROL SO4 2.5/IPRATROPIUM 0.5 INH SOL 3 ML VIAL.NEB. NEB SCH ×2 (07:45→11:30)
[2023-01-31] MEDS: OLANZapine 5 MG TABLET PO SCH (09:22)
[2023-01-31] MEDS: MULTIVITAMINS (DAILY MVI) TABLET (FP) PO SCH (09:22)
[2023-01-31] MEDS: ENOXAPARIN NA (PORCINE) 40 MG/0.4 ML DISP.SYRIN SQ SCH (09:22)
[2023-01-31] MEDS: AMINO ACIDS/PROTEIN HYDROLYS 30 ML LIQUID.PKT PO SCH (09:22)
[2023-01-31] MEDS: BUDESONIDE/FORMETEROL FUMARATE 160/4.5 mcg INHALER IH SCH ×2 (09:23→23:14)
[2023-01-31] MEDS ORDERED: ACETAMINOPHEN 325 MG TABLET (FP) PO PRN (15:48)
[2023-01-31] MEDS ORDERED: LORazepam 0.5 MG TABLET PO PRN (15:48)
[2023-01-31] MEDS ORDERED: ALBUTEROL SO4 HFA INHALER IH PRN (15:48)
[2023-01-31] MEDS ORDERED: ALBUTEROL SO4 2.5/IPRATROPIUM 0.5 INH SOL 3 ML VIAL.NEB. NEB SCH (16:00)
[2023-01-31] MEDS ORDERED: ALBUTEROL SO4 2.5/IPRATROPIUM 0.5 INH SOL 3 ML VIAL.NEB. NEB PRN ×2 (16:02)
[2023-01-31] MEDS ORDERED: ATORVASTATIN CA 40 MG TABLET (FP) PO SCH (22:00)
[2023-01-31] MEDS ORDERED: INSULIN (LEVEMIR) 100 UNITS/ML UNITS SQ SCH (22:00)
[2023-02-01] MEDS ORDERED: DEXTROSE 50%-WATER 25 GM/50 ML DISP.SYRIN IVPUSH ONE (07:02)
[2023-02-01] MEDS ORDERED: DEXTROSE 50%-WATER 25 GM/50 ML DISP.SYRIN ONE (07:02)
[2023-02-01] MEDS: INSULIN SLIDING SCALE (NOVOLOG) 1 VIAL SQ SCH ×3 (07:10→16:21)
[2023-02-01] MEDS ORDERED: AMINO ACIDS/PROTEIN HYDROLYS 30 ML LIQUID.PKT PO SCH (08:00)
[2023-02-01] MEDS ORDERED: OLANZapine 5 MG TABLET PO SCH (10:00)
[2023-02-01] MEDS ORDERED: ENOXAPARIN NA (PORCINE) 40 MG/0.4 ML DISP.SYRIN SQ SCH (10:00)
[2023-02-01] MEDS ORDERED: MULTIVITAMINS (DAILY MVI) TABLET (FP) PO SCH (10:00)
[2023-02-01 10:18] VITALS: RESP 22
[2023-02-01] MEDS ORDERED: INSULIN (NOVOLOG) ASPART 100 UNITS/ML 10ML VIAL ONE ×2 (10:45→16:19)
[2023-02-01] MEDS: BUDESONIDE/FORMETEROL FUMARATE 160/4.5 mcg INHALER IH SCH (11:08)
[2023-02-01] MEDS ORDERED: METOPROLOL TARTRATE 25 MG TABLET (FP) PO SCH (14:13)
[2023-02-01 17:44] VITALS: BP 104/50; PULSE 126; TEMP 99
== END 2023-02-01 18:30 | DRG 871 ==
LOC: JER 10:30 → JERBED 15:31 → J5S 17:17 → J4S 18:05 → J8W 01-31 15:17
PROVIDERS: ADMIT Internal Medicine; ATTEND Nurse Practitioner Acute Care
DX: A41.9 Sepsis, unspecified organism (principal); E43 Unspecified severe protein-calorie malnutrition; J18.9 Pneumonia, unspecified organism; G93.41 Metabolic encephalopathy; J44.0 Chronic obstructive pulmonary disease with (acute) lower respiratory infection; Z68.1 Body mass index [BMI] 19.9 or less, adult; N39.0 Urinary tract infection, site not specified; R64 Cachexia; F31.9 Bipolar disorder, unspecified; E11.40 Type 2 diabetes mellitus with diabetic neuropathy, unspecified; E11.65 Type 2 diabetes mellitus with hyperglycemia; E78.5 Hyperlipidemia, unspecified; Z59.00 Homelessness unspecified; D72.829 Elevated white blood cell count, unspecified; F17.210 Nicotine dependence, cigarettes, uncomplicated
CPT/HCPCS: 0241U-QW; 36415; 36600; 70450-TC; 71045-TC-FY; 71275-TC; 72125-TC; 74230-TC-FY; 80053; 80061; 81003; 82550; 82553; 82803; 82962; 83036; 83605; 83735; 83880; 84100; 84443; 84484; 85025; 85610; 85730; 86850; 86900; 86901; 87040; 87086; 87635; 87899; 92611-GN; 93005; 93010; 93306-TC; 94640; 94761; 97116-GP; 97161-GP; 99285-25